=== PATIENT | male | born 1970 | race Hispanic/Latino ===

== ENCOUNTER 2017-08-14 19:54 | Emergency (ER) | payer MEDICAID, OTHER ==
[~2017-08-14 19:54] MED LIST: FURO40TA7 PO; METO25TA6 PO; POTA-79 PO; PRAV20TA4 PO; RIVA20TA PO
[2017-08-14 20:20] LABS: BASOPHILS % (AUTO) 1.2 % (0.0-5.0); EOSINOPHILS % (AUTO) 2.5 % (0.0-8.0); HEMATOCRIT 43.2 % (42-54); LYMPHOCYTES % (AUTO) 39.8 % (21.0-51.0); MEAN CORPUSCULAR HEMOGLOBIN 35.7 pg (27.0-33.0); MEAN CORPUSCULAR HGB CONC 34.3 g/dL (32.0-36.0); MEAN CORPUSCULAR VOLUME 104.2 fL (79-99); MONOCYTES % (AUTO) 9.7 % (3.0-13.0); NEUTROPHILS % (AUTO) 46.8 % (40.0-77.0); NUCLEATED RED BLOOD CELLS 0.1 % (0.0-0.19); PLATELET COUNT (AUTO) 190 K/uL (130-400); RED BLOOD CELL COUNT(AUTO) 4.15 MIL/uL (4.50-6.20); RED CELL DISTRIBUTION WIDTH 14.9 % (11.0-15.5); WHITE BLOOD COUNT (AUTO) 4.9 K/uL (4.8-10.8)
[2017-08-14] MEDS ORDERED: ACETAMINOPHEN-CODEINE ELIXIR 5 ML UDCUP ONE (20:24)
[2017-08-14 20:32] LABS: INR 1.48 (0.85-1.15); PARTIAL THROMBOPLASTIN TIME 34.3 SEC (26.3-35.5); PROTHROMBIN TIME 15.4 SEC (9.6-11.6)
[2017-08-14 20:34] LABS: CREATININE 1.4 mg/dL (0.5-1.5); POTASSIUM 3.7 mmol/L (3.5-5.1)
[2017-08-14 20:38] LABS: ALBUMIN 3.3 g/dL (3.5-5.0); BILIRUBIN,TOTAL 0.7 mg/dL (0.2-1.0); TOTAL PROTEIN, SERUM 6.7 g/dL (6.0-8.3)
[2017-08-14 20:47] LABS: APPEARANCE,URINE Clear (CLEAR); BILIRUBIN,URINE Negative (NEGATIVE); COLOR,URINE Yellow (YELLOW); GLUCOSE, URINE (UA) Negative (NEGATIVE); KETONES,URINE Negative (NEGATIVE); LEUKOCYTE ESTERASE ,URINE Negative (NEGATIVE); NITRATE,URINE Negative (NEGATIVE); OCCULT BLOOD,URINE Negative (NEGATIVE); PROTEIN,URINE Negative (NEGATIVE)
== END 2017-08-14 22:07 | disposition home or self-care (01) ==
LOC: EDH 19:54 → MERGE 19:54 → EDH 22:07
DX: S43.492A Other sprain of left shoulder joint, initial encounter (principal); I11.0 Hypertensive heart disease with heart failure; I50.9 Heart failure, unspecified; E78.5 Hyperlipidemia, unspecified; Z86.711 Personal history of pulmonary embolism; W18.39XA Other fall on same level, initial encounter; Y93.89 Activity, other specified; Y92.098 Other place in other non-institutional residence as the place of occurrence of the external cause; Y99.8 Other external cause status
CPT/HCPCS: 36415; 71045; 73030; 80053; 81003; 84484; 85025; 85610; 85730; 93005

== ENCOUNTER 2017-08-28 20:44 | Emergency (ER) | payer MEDICAID, OTHER ==
[2017-08-28 21:59] LABS: BASOPHILS % (AUTO) 0.7 % (0.0-5.0); EOSINOPHILS % (AUTO) 1.1 % (0.0-8.0); HEMATOCRIT 39.6 % (42-54); LYMPHOCYTES % (AUTO) 26.9 % (21.0-51.0); MEAN CORPUSCULAR HEMOGLOBIN 35.9 pg (27.0-33.0); MEAN CORPUSCULAR HGB CONC 34.5 g/dL (32.0-36.0); MEAN CORPUSCULAR VOLUME 103.9 fL (79-99); MONOCYTES % (AUTO) 8.1 % (3.0-13.0); NEUTROPHILS % (AUTO) 63.2 % (40.0-77.0); PLATELET COUNT (AUTO) 168 K/uL (130-400); RED BLOOD CELL COUNT(AUTO) 3.81 MIL/uL (4.50-6.20); RED CELL DISTRIBUTION WIDTH 13.5 % (11.0-15.5); WHITE BLOOD COUNT (AUTO) 7.7 K/uL (4.8-10.8)
[2017-08-28 22:10] LABS: INR 1.3 (0.85-1.15); PARTIAL THROMBOPLASTIN TIME 29.3 SEC (26.3-35.5); PROTHROMBIN TIME 13.6 SEC (9.6-11.6)
[2017-08-28 22:11] LABS: POTASSIUM 4.1 mmol/L (3.5-5.1)
[2017-08-28 22:28] LABS: ALBUMIN 3.3 g/dL (3.5-5.0); BILIRUBIN,TOTAL 0.8 mg/dL (0.2-1.0); CREATINE KINASE MB 1.2 ng/mL (0.5-3.6); TOTAL PROTEIN, SERUM 6.7 g/dL (6.0-8.3)
[2017-08-28 23:14] LABS: APPEARANCE,URINE Clear (CLEAR); BILIRUBIN,URINE Negative (NEGATIVE); COLOR,URINE Yellow (YELLOW); GLUCOSE, URINE (UA) Negative (NEGATIVE); KETONES,URINE Negative (NEGATIVE); LEUKOCYTE ESTERASE ,URINE Negative (NEGATIVE); NITRATE,URINE Negative (NEGATIVE); OCCULT BLOOD,URINE Negative (NEGATIVE); PH,URINE 6.5 (5.0-8.0); PROTEIN,URINE POS 1+ (NEGATIVE)
[2017-08-28 23:22] LABS: AMPHET/METH SCREEN,URINE NEGATIVE (NEGATIVE); BARBITURATE SCREEN, URINE NEGATIVE (NEGATIVE); BENZODIAZEPINES SCREEN,URINE NEGATIVE (NEGATIVE); CANNABINOID SCREEN,URINE NEGATIVE (NEGATIVE); COCAINE SCREEN,URINE NEGATIVE (NEGATIVE); OPIATE SCREEN,URINE NEGATIVE (NEGATIVE); PHENCYCLIDINE SCREEN,URINE NEGATIVE (NEGATIVE)
[2017-08-28 23:28] LABS: BACTERIA,URINE None Seen /HPF (None Seen); MUCUS,URINE Moderate LPF (None Seen); RBC,URINE None Seen /HPF (0-1); SQUAMOUS EPITHELIAL CELL,UR Few /LPF (0-2); WBC,URINE 0-1 /HPF (0-1)
[2017-08-28] MEDS ORDERED: TRAMADOL HCL 50 MG TABLET ONE (23:45)
== END 2017-08-29 00:38 | disposition home or self-care (01) ==
LOC: MERGE 20:44 → EDH 20:44
DX: S70.11XA Contusion of right thigh, initial encounter (principal); R79.1 Abnormal coagulation profile; R60.0 Localized edema; I11.0 Hypertensive heart disease with heart failure; I50.9 Heart failure, unspecified; E78.5 Hyperlipidemia, unspecified; Z86.711 Personal history of pulmonary embolism; W01.198A Fall on same level from slipping, tripping and stumbling with subsequent striking against other object, initial encounter; Y93.89 Activity, other specified; Y92.69 Other specified industrial and construction area as the place of occurrence of the external cause; Y99.8 Other external cause status
CPT/HCPCS: 36415; 80053; 80305; 81001; 82550; 82553; 84484; 85025; 85610; 85730; 93971

== ENCOUNTER 2017-09-03 15:45 | Inpatient (IN) | payer MEDICAID, OTHER ==
[~2017-09-03] VITALS: Ht 167.6 cm; Wt 72.1 kg
[2017-09-03] MEDS ORDERED: ONDANSETRON ODT 4 MG TAB ONE (16:30)
[2017-09-03 16:32] LABS: BASOPHILS % (AUTO) 0.7 % (0.0-5.0); EOSINOPHILS % (AUTO) 1.5 % (0.0-8.0); HEMATOCRIT 45.2 % (42-54); LYMPHOCYTES % (AUTO) 33.1 % (21.0-51.0); MEAN CORPUSCULAR VOLUME 105.8 fL (79-99); MONOCYTES % (AUTO) 6.5 % (3.0-13.0); NEUTROPHILS % (AUTO) 58.2 % (40.0-77.0); NUCLEATED RED BLOOD CELLS 0.2 % (0.0-0.19); PLATELET COUNT (AUTO) 268 K/uL (130-400); RED BLOOD CELL COUNT(AUTO) 4.27 MIL/uL (4.50-6.20); RED CELL DISTRIBUTION WIDTH 14.4 % (11.0-15.5); WHITE BLOOD COUNT (AUTO) 5.8 K/uL (4.8-10.8)
[2017-09-03 16:42] LABS: CREATININE 1.2 mg/dL (0.5-1.5); INR 1.48 (0.85-1.15); PARTIAL THROMBOPLASTIN TIME 31.3 SEC (26.3-35.5); PROTHROMBIN TIME 15.4 SEC (9.6-11.6)
[2017-09-03 16:47] LABS: ALBUMIN 3.9 g/dL (3.5-5.0); BILIRUBIN,TOTAL 0.9 mg/dL (0.2-1.0); TOTAL PROTEIN, SERUM 7.9 g/dL (6.0-8.3)
[2017-09-03 17:14] LABS: APPEARANCE,URINE Clear (CLEAR); BILIRUBIN,URINE Negative (NEGATIVE); COLOR,URINE Dark Yellow (YELLOW); GLUCOSE, URINE (UA) Negative (NEGATIVE); KETONES,URINE Negative (NEGATIVE); LEUKOCYTE ESTERASE ,URINE Negative (NEGATIVE); NITRATE,URINE Negative (NEGATIVE); OCCULT BLOOD,URINE Negative (NEGATIVE); PH,URINE 6.5 (5.0-8.0); PROTEIN,URINE POS 2+ (NEGATIVE)
[2017-09-03 17:29] LABS: RBC,URINE None Seen /HPF (0-1)
[2017-09-03 17:30] LABS: BACTERIA,URINE Rare /HPF (None Seen); WBC,URINE 0-1 /HPF (0-1)
[2017-09-04 02:00] VITALS: BP 115/61
[2017-09-04] MEDS ORDERED: ACETAMINOPHEN 325 MG TAB PO PRN ×2 (02:45)
[2017-09-04] MEDS ORDERED: ONDANSETRON HCL 4 MG/2 ML VIAL IV PRN (02:45)
[2017-09-04 04:27] LABS: HEMATOCRIT 39.2 % (42-54); MEAN CORPUSCULAR HGB CONC 34.2 g/dL (32.0-36.0); MEAN CORPUSCULAR VOLUME 105.1 fL (79-99); NUCLEATED RED BLOOD CELLS 0.1 % (0.0-0.19); PLATELET COUNT (AUTO) 214 K/uL (130-400); RED BLOOD CELL COUNT(AUTO) 3.73 MIL/uL (4.50-6.20); WHITE BLOOD COUNT (AUTO) 6.6 K/uL (4.8-10.8)
[2017-09-04 04:40] LABS: CREATININE 1.2 mg/dL (0.5-1.5); PHOSPHORUS 3.6 mg/dL (2.5-4.9); POTASSIUM 3.9 mmol/L (3.5-5.1)
[2017-09-04 04:44] LABS: AMMONIA 29 umol/L (11-32); AMYLASE 38 U/L (25-115)
[2017-09-04 05:02] LABS: B-TYPE NATRIURETIC PEPTIDE 854 pg/mL (0-100)
[2017-09-04] MEDS: FUROSEMIDE 10 MG/ML 4ML VIAL IV SCH ×2 (05:28→16:47)
[2017-09-04 07:00] VITALS: BP 117/70
[2017-09-04] MEDS: FAMOTIDINE/PF 20 MG/2 ML VIAL IV SCH ×2 (08:12→20:07)
[2017-09-04 11:00] VITALS: BP 116/70
[2017-09-04 16:00] VITALS: BP 104/80
[2017-09-04] MEDS: RIVAROXABAN 20 MG TABLET PO SCH (16:47)
[2017-09-04] MEDS ORDERED: AMIODARONE HCL 900 MG in DEXTROSE 5%-WATER 500 ML IV SCH (17:00)
[2017-09-04] MEDS ORDERED: AMIODARONE HCL 150 MG in DEXTROSE 5%-WATER 100 ML IV SCH (17:00)
[2017-09-04 19:28] VITALS: BP 109/64
[2017-09-04 23:36] VITALS: BP 98/67
[2017-09-05 04:00] VITALS: BP 106/69
[2017-09-05 04:28] LABS: CREATININE 1.3 mg/dL (0.5-1.5); POTASSIUM 3.7 mmol/L (3.5-5.1)
[2017-09-05 07:00] VITALS: BP 100/59
[2017-09-05] MEDS ORDERED: MIDAZOLAM HCL 1 MG/ML 2ML VIAL IVP ONE (07:00)
[2017-09-05] MEDS ORDERED: MEPERIDINE-PF 50 MG/ML SYG IVP ONE (07:00)
[2017-09-05] MEDS: RIVAROXABAN 20 MG TABLET PO SCH ×2 (08:00→08:27)
[2017-09-05] MEDS: FUROSEMIDE 20 MG TABLET PO SCH (08:00)
[2017-09-05] MEDS: FAMOTIDINE/PF 20 MG/2 ML VIAL IV SCH ×2 (08:01→21:02)
[2017-09-05] MEDS: CARVEDILOL 6.25 MG TABLET PO SCH ×2 (09:20→21:02)
[2017-09-05] MEDS: LISINOPRIL 5 MG TABLET PO SCH (09:20)
[2017-09-05 11:00] VITALS: BP 107/77
[2017-09-05 16:00] VITALS: BP 104/69
[2017-09-05 19:48] VITALS: BP 94/64
[2017-09-05 23:45] VITALS: BP 108/65
[2017-09-06] VITALS (10 sets, daily range): BP systolic 89–108; BP diastolic 54–80
[2017-09-06 04:39] LABS: HEMATOCRIT 40.2 % (42-54); MEAN CORPUSCULAR HGB CONC 34.5 g/dL (32.0-36.0); MEAN CORPUSCULAR VOLUME 104.5 fL (79-99); PLATELET COUNT (AUTO) 210 K/uL (130-400); RED BLOOD CELL COUNT(AUTO) 3.84 MIL/uL (4.50-6.20); RED CELL DISTRIBUTION WIDTH 14.7 % (11.0-15.5); WHITE BLOOD COUNT (AUTO) 5.6 K/uL (4.8-10.8)
[2017-09-06 04:42] LABS: CREATININE 1.3 mg/dL (0.5-1.5); POTASSIUM 3.7 mmol/L (3.5-5.1)
[2017-09-06 04:47] LABS: INR 1.21 (0.85-1.15); PARTIAL THROMBOPLASTIN TIME 27.5 SEC (26.3-35.5); PROTHROMBIN TIME 12.7 SEC (9.6-11.6)
[2017-09-06] MEDS: AMIODARONE HCL 200 MG TABLET PO SCH (08:26)
[2017-09-06] MEDS: FAMOTIDINE/PF 20 MG/2 ML VIAL IV SCH ×2 (08:26→22:13)
[2017-09-06] MEDS: FUROSEMIDE 20 MG TABLET PO SCH (08:27)
[2017-09-06] MEDS: CARVEDILOL 6.25 MG TABLET PO SCH ×2 (08:27→22:13)
[2017-09-06] MEDS: LISINOPRIL 5 MG TABLET PO SCH (08:27)
[2017-09-06] MEDS ORDERED: NITROGLYCERIN 5 MG/ML 10 ML VIAL IV ONE (15:59)
[2017-09-06] MEDS ORDERED: IOPAMIDOL-370 100 ML VIAL IV ONE ×2 (15:59→16:42)
[2017-09-06] MEDS ORDERED: LIDOCAINE HCL 2% 20ML ONE (15:59)
[2017-09-06] MEDS ORDERED: ISOVUE-370 50ML VIAL IV ONE ×2 (15:59→16:53)
[2017-09-06] MEDS ORDERED: NITROGLYCERIN 50 MG/D5% WATER 1 BOT ONE (16:43)
[2017-09-06] MEDS ORDERED: FUROSEMIDE 10 MG/ML 2ML VIAL ONE (17:06)
[2017-09-07 04:00] VITALS: BP 90/58
[2017-09-07 07:29] VITALS: BP 100/67
[2017-09-07] MEDS: FUROSEMIDE 20 MG TABLET PO SCH (09:00)
[2017-09-07] MEDS: AMIODARONE HCL 200 MG TABLET PO SCH (09:00)
[2017-09-07] MEDS: LISINOPRIL 5 MG TABLET PO SCH (09:01)
[2017-09-07] MEDS: FAMOTIDINE/PF 20 MG/2 ML VIAL IV SCH ×2 (09:01→23:00)
[2017-09-07] MEDS: CARVEDILOL 6.25 MG TABLET PO SCH ×2 (09:01→23:00)
[2017-09-07 11:09] VITALS: BP 92/49
[2017-09-07 16:00] VITALS: BP 90/55
[2017-09-07 19:46] VITALS: BP 127/76
[2017-09-07 23:29] VITALS: BP 101/66
[2017-09-08 04:06] VITALS: BP 86/56
[2017-09-08 04:24] LABS: EOSINOPHILS % (AUTO) 1.4 % (0.0-8.0); HEMATOCRIT 42.7 % (42-54); LYMPHOCYTES % (AUTO) 25.9 % (21.0-51.0); MEAN CORPUSCULAR HEMOGLOBIN 36.3 pg (27.0-33.0); MEAN CORPUSCULAR HGB CONC 34.7 g/dL (32.0-36.0); MEAN CORPUSCULAR VOLUME 104.5 fL (79-99); MONOCYTES % (AUTO) 13.1 % (3.0-13.0); NEUTROPHILS % (AUTO) 58.6 % (40.0-77.0); NUCLEATED RED BLOOD CELLS 0.1 % (0.0-0.19); PLATELET COUNT (AUTO) 212 K/uL (130-400); RED BLOOD CELL COUNT(AUTO) 4.08 MIL/uL (4.50-6.20); RED CELL DISTRIBUTION WIDTH 14.4 % (11.0-15.5); WHITE BLOOD COUNT (AUTO) 5.4 K/uL (4.8-10.8)
[2017-09-08 04:27] LABS: POTASSIUM 3.4 mmol/L (3.5-5.1)
[2017-09-08 04:44] LABS: B-TYPE NATRIURETIC PEPTIDE 573 pg/mL (0-100)
[2017-09-08 07:35] VITALS: BP 99/58
[2017-09-08] MEDS: FUROSEMIDE 20 MG TABLET PO SCH (09:12)
[2017-09-08] MEDS: AMIODARONE HCL 200 MG TABLET PO SCH (09:13)
[2017-09-08] MEDS: CARVEDILOL 6.25 MG TABLET PO SCH ×2 (09:13→21:25)
[2017-09-08] MEDS: FAMOTIDINE/PF 20 MG/2 ML VIAL IV SCH ×2 (09:13→21:25)
[2017-09-08] MEDS: LISINOPRIL 5 MG TABLET PO SCH (09:13)
[2017-09-08 11:10] VITALS: BP 103/61
[2017-09-08] MEDS ORDERED: POTASSIUM CHLORIDE 20 MEQ ERTAB PO SCH (14:00)
[2017-09-08 16:50] VITALS: BP 106/84
[2017-09-08 20:05] VITALS: BP 102/63
[2017-09-09] VITALS (7 sets, daily range): BP systolic 92–108; BP diastolic 57–72
[2017-09-09] MEDS: AMIODARONE HCL 200 MG TABLET PO SCH (09:06)
[2017-09-09] MEDS: CARVEDILOL 6.25 MG TABLET PO SCH ×2 (09:07→21:00)
[2017-09-09] MEDS: LISINOPRIL 5 MG TABLET PO SCH (09:07)
[2017-09-09] MEDS: FAMOTIDINE/PF 20 MG/2 ML VIAL IV SCH ×2 (09:07→20:45)
[2017-09-09] MEDS: FUROSEMIDE 20 MG TABLET PO SCH (09:59)
[2017-09-09] MEDS ORDERED: VANCOMYCIN 1GM+NS 250ML 250 ML IV SCH (12:15)
[2017-09-09] MEDS ORDERED: VANCOMYCIN 1GM+NS 250ML 250 ML IV ONE (13:44)
[2017-09-09] MEDS ORDERED: ENOXAPARIN SODIUM 80 MG/0.8 ML SQ SCH (19:00)
[2017-09-10] VITALS (13 sets, daily range): BP systolic 90–150; BP diastolic 65–84
[2017-09-10 04:26] LABS: HEMATOCRIT 45.7 % (42-54); MEAN CORPUSCULAR HEMOGLOBIN 35.3 pg (27.0-33.0); MEAN CORPUSCULAR HGB CONC 33.7 g/dL (32.0-36.0); MEAN CORPUSCULAR VOLUME 104.8 fL (79-99); NUCLEATED RED BLOOD CELLS 0.1 % (0.0-0.19); PLATELET COUNT (AUTO) 237 K/uL (130-400); RED BLOOD CELL COUNT(AUTO) 4.36 MIL/uL (4.50-6.20); RED CELL DISTRIBUTION WIDTH 14.5 % (11.0-15.5); WHITE BLOOD COUNT (AUTO) 4.3 K/uL (4.8-10.8)
[2017-09-10 04:44] LABS: ALBUMIN 2.9 g/dL (3.5-5.0); BILIRUBIN,TOTAL 0.7 mg/dL (0.2-1.0); POTASSIUM 4.2 mmol/L (3.5-5.1); TOTAL PROTEIN, SERUM 6.7 g/dL (6.0-8.3)
[2017-09-10] MEDS ORDERED: LIDOCAINE HCL 1% MDV 50ML VIAL ONE (07:12)
[2017-09-10] MEDS ORDERED: BUPIVACAINE/PF 0.25% 30ML VIAL IJ ONE (07:12)
[2017-09-10] MEDS ORDERED: VANCOMYCIN 1GM+NS 250ML 500 ML IV ONE (07:12)
[2017-09-10 07:22] LABS: INR 1.03 (0.85-1.15); PARTIAL THROMBOPLASTIN TIME 28.4 SEC (26.3-35.5); PROTHROMBIN TIME 10.8 SEC (9.6-11.6)
[2017-09-10] MEDS ORDERED: MEPERIDINE-PF 50 MG/ML SYG ONE (07:53)
[2017-09-10] MEDS ORDERED: MIDAZOLAM HCL 1 MG/ML 2ML VIAL ONE ×2 (07:53→08:04)
[2017-09-10] MEDS ORDERED: ISOVUE-370 50ML VIAL IV ONE (08:25)
[2017-09-10] MEDS: FUROSEMIDE 20 MG TABLET PO SCH (09:00)
[2017-09-10] MEDS: LISINOPRIL 5 MG TABLET PO SCH (09:00)
[2017-09-10] MEDS: CARVEDILOL 6.25 MG TABLET PO SCH ×2 (09:00→21:23)
[2017-09-10] MEDS: AMIODARONE HCL 200 MG TABLET PO SCH (09:00)
[2017-09-10] MEDS: FAMOTIDINE/PF 20 MG/2 ML VIAL IV SCH ×2 (09:00→21:24)
[2017-09-10] MEDS ORDERED: ACETAMINOPHEN 325 MG TAB PO PRN (09:15)
[2017-09-10] MEDS ORDERED: ACETAMINOPHEN-CODEINE 300/30MG TAB PO PRN ×2 (09:15)
[2017-09-10] MEDS: RIVAROXABAN 20 MG TABLET PO SCH (16:33)
[2017-09-11 03:15] VITALS: BP 96/62
[2017-09-11 07:00] VITALS: BP 114/59
[2017-09-11] MEDS ORDERED: LOSARTAN 50 MG TABLET PO SCH (09:00)
[2017-09-11] MEDS: FAMOTIDINE/PF 20 MG/2 ML VIAL IV SCH (09:08)
[2017-09-11] MEDS: CARVEDILOL 6.25 MG TABLET PO SCH (09:09)
[2017-09-11] MEDS: RIVAROXABAN 20 MG TABLET PO SCH (09:09)
[2017-09-11] MEDS: AMIODARONE HCL 200 MG TABLET PO SCH (09:09)
[2017-09-11] MEDS: FUROSEMIDE 20 MG TABLET PO SCH (09:09)
[2017-09-11 11:00] VITALS: BP 113/86
[2017-09-11] MEDS ORDERED: CARV6.2579 PO (13:19)
[2017-09-11] MEDS ORDERED: AMIO200T44 PO (13:19)
[2017-09-11] MEDS ORDERED: RIVA20TA PO (13:19)
[2017-09-11] MEDS ORDERED: FURO20TA6 PO (13:19)
[2017-09-11] MEDS ORDERED: ACET-2247 PO (13:19)
[2017-09-11] MEDS ORDERED: LOSA50TA2 PO (13:32)
== END 2017-09-11 15:43 | disposition home or self-care (01) | DRG 223 ==
LOC: EDH 15:45 → EDHIP 15:46 → MERGE 15:46 → 2DH 09-04 01:29
PROVIDERS: ADMIT Family Medicine; ATTEND Family Medicine
PROC: 4A023N7 Measurement of Cardiac Sampling and Pressure, Left Heart, Percutaneous Approach (ICD-10-PCS; principal; 2017-09-06)
PROC: B2111ZZ Fluoroscopy of Multiple Coronary Arteries using Low Osmolar Contrast (ICD-10-PCS; 2017-09-06)
PROC: B2151ZZ Fluoroscopy of Left Heart using Low Osmolar Contrast (ICD-10-PCS; 2017-09-06)
PROC: 02HK3KZ Insertion of Defibrillator Lead into Right Ventricle, Percutaneous Approach (ICD-10-PCS; 2017-09-10)
PROC: 0JH608Z Insertion of Defibrillator Generator into Chest Subcutaneous Tissue and Fascia, Open Approach (ICD-10-PCS; 2017-09-10)
PROC: 02H63KZ Insertion of Defibrillator Lead into Right Atrium, Percutaneous Approach (ICD-10-PCS; 2017-09-10)
DX: I11.0 Hypertensive heart disease with heart failure (principal); D68.69 Other thrombophilia; I42.0 Dilated cardiomyopathy; I48.1 Persistent atrial fibrillation; I51.3 Intracardiac thrombosis, not elsewhere classified; I48.0 Paroxysmal atrial fibrillation; R18.8 Other ascites; E78.5 Hyperlipidemia, unspecified; K29.70 Gastritis, unspecified, without bleeding; K52.9 Noninfective gastroenteritis and colitis, unspecified; I25.10 Atherosclerotic heart disease of native coronary artery without angina pectoris; I48.2 Chronic atrial fibrillation; I50.43 Acute on chronic combined systolic (congestive) and diastolic (congestive) heart failure; M19.90 Unspecified osteoarthritis, unspecified site; Z79.01 Long term (current) use of anticoagulants; Z95.810 Presence of automatic (implantable) cardiac defibrillator
CPT/HCPCS: 33249; 36415; 71045; 71046; 74176; 76700; 80048; 80053; 81001; 82140; 82150; 83690; 83735; 83880; 84100; 85025; 85027; 85610; 85730; 93005; 93306; 93458; 93925; 99152; 99153; C1721; C1760; C1894; C9113; J0282; J1644; J1650; J1940; J2175; J2250; J3370; J3490; J7060; Q9967

== ENCOUNTER 2017-10-22 08:45 | Emergency (ER) | payer SELFPAY ==
[~2017-10-22 08:45] MED LIST changes: +ACET-2247 PO; +AMIO200T44 PO; +CARV6.2579 PO; +FURO20TA6 PO; -FURO40TA7 PO; +LOSA50TA2 PO; -METO25TA6 PO; -POTA-79 PO; -PRAV20TA4 PO
[2017-10-22] MEDS ORDERED: NITROGLYCERIN 0.4 MG SL TAB SL ONE (09:21)
[2017-10-22] MEDS ORDERED: ASPIRIN 325 MG TABLET ONE (09:21)
[2017-10-22 09:25] LABS: BASOPHILS % (AUTO) 0.6 % (0.0-5.0); EOSINOPHILS % (AUTO) 1.6 % (0.0-8.0); LYMPHOCYTES % (AUTO) 24.5 % (21.0-51.0); MEAN CORPUSCULAR HEMOGLOBIN 35.1 pg (27.0-33.0); MEAN CORPUSCULAR HGB CONC 34.1 g/dL (32.0-36.0); MEAN CORPUSCULAR VOLUME 102.8 fL (79-99); NEUTROPHILS % (AUTO) 62.3 % (40.0-77.0); PLATELET COUNT (AUTO) 195 K/uL (130-400); RED BLOOD CELL COUNT(AUTO) 4.28 MIL/uL (4.50-6.20); RED CELL DISTRIBUTION WIDTH 13.7 % (11.0-15.5); WHITE BLOOD COUNT (AUTO) 6.1 K/uL (4.8-10.8)
[2017-10-22 09:38] LABS: CREATININE 1.1 mg/dL (0.5-1.5); POTASSIUM 3.8 mmol/L (3.5-5.1)
[2017-10-22 09:48] LABS: ALBUMIN 3.9 g/dL (3.5-5.0); BILIRUBIN,TOTAL 0.8 mg/dL (0.2-1.0); TOTAL PROTEIN, SERUM 8.1 g/dL (6.0-8.3)
[2017-10-22 10:05] LABS: INR 1.01 (0.85-1.15); PARTIAL THROMBOPLASTIN TIME 25.4 SEC (26.3-35.5); PROTHROMBIN TIME 10.4 SEC (9.6-11.6)
[2017-10-22] MEDS ORDERED: FUROSEMIDE 10 MG/ML 4ML VIAL ONE (10:52)
[2017-10-22] MEDS ORDERED: ONDANSETRON HCL MDV 20ML 2 MG/ML VIAL ONE (10:52)
[2017-10-22] MEDS ORDERED: IOPAMIDOL-370 100 ML VIAL IV ONE (10:52)
[2017-10-22] MEDS ORDERED: MORPHINE SULFATE 4 MG/1ML SYG ONE (10:53)
== END 2017-10-22 13:42 | disposition home or self-care (01) ==
LOC: EDH 08:45
DX: R07.89 Other chest pain (principal); I11.0 Hypertensive heart disease with heart failure; I50.9 Heart failure, unspecified; E78.5 Hyperlipidemia, unspecified; R00.1 Bradycardia, unspecified; Z86.711 Personal history of pulmonary embolism; Z95.0 Presence of cardiac pacemaker; Z72.0 Tobacco use; Z79.899 Other long term (current) drug therapy
CPT/HCPCS: 36415; 71045; 71275; 80053; 82550; 83880; 84484 ×2; 85025; 85610; 85730; 93005; 96374; 96375; 99285; J1940; J2270; Q9967

== ENCOUNTER 2017-11-16 15:30 | Emergency (ER) | payer SELFPAY ==
[2017-11-16] MEDS ORDERED: OCTYL 2-CYANOACRYLATE 1 EACH TP ONE (15:54)
[2017-11-16] MEDS ORDERED: TETANUS/DIPHTHERIA TOXOID [ADULT] 0.5 ML VIAL IM ONE (16:29)
== END 2017-11-16 16:35 | disposition home or self-care (01) ==
LOC: EDH 15:30
DX: S81.811A Laceration without foreign body, right lower leg, initial encounter (principal); I11.0 Hypertensive heart disease with heart failure; E78.5 Hyperlipidemia, unspecified; I50.9 Heart failure, unspecified; Z86.711 Personal history of pulmonary embolism; W22.8XXA Striking against or struck by other objects, initial encounter; Y93.01 Activity, walking, marching and hiking; Y92.59 Other trade areas as the place of occurrence of the external cause; Y99.8 Other external cause status
CPT/HCPCS: 12001; 90471; 90714

== ENCOUNTER 2018-04-16 19:30 | Emergency (ER) | payer OTHER ==
[2018-04-16 20:00] LABS: BASOPHILS % (AUTO) 0.3 % (0.0-5.0); HEMATOCRIT 44.6 % (42-54); LYMPHOCYTES % (AUTO) 4.5 % (21.0-51.0); MEAN CORPUSCULAR HEMOGLOBIN 36.2 pg (27.0-33.0); MEAN CORPUSCULAR HGB CONC 34.5 g/dL (32.0-36.0); MEAN CORPUSCULAR VOLUME 104.8 fL (79-99); MONOCYTES % (AUTO) 8.6 % (3.0-13.0); NEUTROPHILS % (AUTO) 86.6 % (40.0-77.0); PLATELET COUNT (AUTO) 162 K/uL (130-400); RED BLOOD CELL COUNT(AUTO) 4.26 MIL/uL (4.50-6.20); RED CELL DISTRIBUTION WIDTH 12.6 % (11.0-15.5); WHITE BLOOD COUNT (AUTO) 9.4 K/uL (4.8-10.8)
[2018-04-16 20:01] LABS: APPEARANCE,URINE CLEAR (CLEAR); BILIRUBIN,URINE NEGATIVE (NEGATIVE); COLOR,URINE YELLOW (YELLOW); GLUCOSE, URINE (UA) NEGATIVE (NEGATIVE); KETONES,URINE NEGATIVE (NEGATIVE); LEUKOCYTE ESTERASE ,URINE NEGATIVE (NEGATIVE); NITRATE,URINE NEGATIVE (NEGATIVE); OCCULT BLOOD,URINE NEGATIVE (NEGATIVE); PROTEIN,URINE NEGATIVE (NEGATIVE)
[2018-04-16] MEDS ORDERED: SODIUM CHLORIDE 0.9% 1000ML 1,000 ML IV ONE ×2 (20:24→20:34)
[2018-04-16] MEDS ORDERED: KETOROLAC TROMETHAMINE 30MG/ML ONE (20:24)
[2018-04-16] MEDS ORDERED: ONDANSETRON HCL 4 MG/2 ML VIAL ONE (20:24)
[2018-04-16 20:29] LABS: ALBUMIN 4.1 g/dL (3.5-5.0); CREATININE 1.3 mg/dL (0.5-1.5); TOTAL PROTEIN, SERUM 8.1 g/dL (6.0-8.3)
[2018-04-16] MEDS ORDERED: POTASSIUM BICARB/CIT AC 25 MEQ TABLET.EFF ONE (20:52)
[2018-04-16] MEDS ORDERED: ORPHENADRINE CITRATE 30 MG/ML ML ONE (23:08)
== END 2018-04-16 22:18 | disposition home or self-care (01) ==
LOC: EDH 19:30
DX: S39.011A Strain of muscle, fascia and tendon of abdomen, initial encounter (principal); R11.2 Nausea with vomiting, unspecified; I11.0 Hypertensive heart disease with heart failure; I50.9 Heart failure, unspecified; R00.1 Bradycardia, unspecified; Z86.711 Personal history of pulmonary embolism; Z95.0 Presence of cardiac pacemaker; X58.XXXA Exposure to other specified factors, initial encounter; Y93.89 Activity, other specified; Y92.89 Other specified places as the place of occurrence of the external cause; Y99.8 Other external cause status
CPT/HCPCS: 36415; 74176; 80053; 81003; 82150; 83690; 85025; 93005; 96361; 96372; 96374; 96375; 99285; J1885; J2360; J2405; J7030 ×2

== ENCOUNTER 2018-08-05 17:04 | Emergency (ER) | payer SELFPAY ==
[2018-08-05] MEDS ORDERED: IBUPROFEN 200 MG TAB ONE (17:23)
[2018-08-05] MEDS ORDERED: LIDOCAINE 2%-EPI 1:200,000 20 ML VIAL IJ ONE (17:23)
[2018-08-05] MEDS ORDERED: IBUPROFEN 400 MG TABLET ONE (17:23)
== END 2018-08-05 18:11 | disposition home or self-care (01) ==
LOC: EDH 17:04
DX: S61.412A Laceration without foreign body of left hand, initial encounter (principal); I11.0 Hypertensive heart disease with heart failure; I50.9 Heart failure, unspecified; E78.5 Hyperlipidemia, unspecified; Z86.711 Personal history of pulmonary embolism; W26.8XXA Contact with other sharp object(s), not elsewhere classified, initial encounter; Y93.89 Activity, other specified; Y92.096 Garden or yard of other non-institutional residence as the place of occurrence of the external cause; Y99.8 Other external cause status
CPT/HCPCS: 12001; 99283; J3490

== ENCOUNTER 2018-10-19 23:19 | Emergency (ER) | payer OTHER | END 2018-10-20 00:04 | disposition home or self-care (01) | LOC: EDH 23:19 | DX: M17.11 Unilateral primary osteoarthritis, right knee (principal); I11.0 Hypertensive heart disease with heart failure; I50.9 Heart failure, unspecified; E78.5 Hyperlipidemia, unspecified; Z95.0 Presence of cardiac pacemaker | CPT/HCPCS: 99281 ==

== ENCOUNTER 2020-03-18 19:06 | Emergency (ER) | payer OTHER ==
[2020-03-18 19:52] LABS: BASOPHILS % (AUTO) 0.2 % (0.0-5.0); EOSINOPHILS % (AUTO) 0.2 % (0.0-8.0); HEMATOCRIT 44.1 % (42-54); LYMPHOCYTES % (AUTO) 17.7 % (21.0-51.0); MEAN CORPUSCULAR HEMOGLOBIN 34.7 pg (27.0-33.0); MEAN CORPUSCULAR HGB CONC 34.5 g/dL (32.0-36.0); MEAN CORPUSCULAR VOLUME 100.7 fL (79-99); MONOCYTES % (AUTO) 5.1 % (3.0-13.0); NEUTROPHILS % (AUTO) 76.6 % (40.0-77.0); PLATELET COUNT (AUTO) 151 K/uL (130-400); RED BLOOD CELL COUNT(AUTO) 4.38 MIL/uL (4.50-6.20); RED CELL DISTRIBUTION WIDTH 12.5 % (11.0-15.5); WHITE BLOOD COUNT (AUTO) 4.8 K/uL (4.8-10.8)
[2020-03-18 20:01] LABS: RAPID GROUP A STREP NEGATIVE (NEGATIVE)
[2020-03-18 20:02] LABS: CREATININE 1.3 mg/dL (0.5-1.5); POTASSIUM 3.2 mmol/L (3.5-5.1)
[2020-03-18 20:09] LABS: APPEARANCE,URINE Clear (CLEAR); BILIRUBIN,URINE Small (NEGATIVE); COLOR,URINE Dark Yellow (YELLOW); GLUCOSE, URINE (UA) Negative (NEGATIVE); KETONES,URINE 40 mg/dL (NEGATIVE); LEUKOCYTE ESTERASE ,URINE Trace (NEGATIVE); NITRATE,URINE Negative (NEGATIVE); OCCULT BLOOD,URINE Negative (NEGATIVE); PH,URINE 5.5 (5.0-8.0); PROTEIN,URINE POS 2+ mg/dL (NEGATIVE)
[2020-03-18 20:11] LABS: INR 0.88 (0.85-1.15); PARTIAL THROMBOPLASTIN TIME 31.3 SEC (26.3-35.5); PROTHROMBIN TIME 9.6 SEC (9.6-11.6)
[2020-03-18 20:16] LABS: ALBUMIN 3.9 g/dL (3.5-5.0); BILIRUBIN,TOTAL 0.6 mg/dL (0.2-1.0); TOTAL PROTEIN, SERUM 8.4 g/dL (6.0-8.3)
[2020-03-18 20:19] LABS: B-TYPE NATRIURETIC PEPTIDE 233 pg/mL (0-100)
[2020-03-18 20:24] LABS: BACTERIA,URINE Few /HPF (None Seen); RBC,URINE None Seen /HPF (0-1); SQUAMOUS EPITHELIAL CELL,UR None Seen /HPF (0-2)
[2020-03-18] MEDS ORDERED: CEFTRIAXONE SODIUM 1 GM ONE (20:30)
[2020-03-18] MEDS ORDERED: POTASSIUM CHLORIDE 20 MEQ ERTAB PO ONE (21:37)
== END 2020-03-18 22:25 | disposition home or self-care (01) ==
LOC: EDH 19:06
DX: U07.1 COVID-19 (principal); J12.89 Other viral pneumonia; E78.5 Hyperlipidemia, unspecified; I10 Essential (primary) hypertension; I50.9 Heart failure, unspecified
CPT/HCPCS: 36415; 71045; 80053; 81001; 82550; 83605; 83880; 84145; 84484; 85025; 85610; 85730; 87040 ×2; 87426; 87804 ×2; 87880; 93005 ×2; 96374; 99285; J0696

== ENCOUNTER 2020-10-20 20:48 | Emergency (ER) | payer OTHER ==
[2020-10-20 21:44] LABS: BASOPHILS % (AUTO) 0.7 % (0.0-5.0); EOSINOPHILS % (AUTO) 1.6 % (0.0-8.0); HEMATOCRIT 42.6 % (42-54); LYMPHOCYTES % (AUTO) 32.7 % (21.0-51.0); MEAN CORPUSCULAR HGB CONC 33.3 g/dL (32.0-36.0); MEAN CORPUSCULAR VOLUME 104.9 fL (79-99); MONOCYTES % (AUTO) 10.7 % (3.0-13.0); NEUTROPHILS % (AUTO) 53.9 % (40.0-77.0); PLATELET COUNT (AUTO) 180 K/uL (130-400); RED BLOOD CELL COUNT(AUTO) 4.06 MIL/uL (4.50-6.20); RED CELL DISTRIBUTION WIDTH 14.6 % (11.0-15.5); WHITE BLOOD COUNT (AUTO) 6.9 K/uL (4.8-10.8)
[2020-10-20 21:54] LABS: CREATININE 1.3 mg/dL (0.5-1.5); POTASSIUM 3.9 mmol/L (3.5-5.1)
[2020-10-20 21:59] LABS: ALBUMIN 3.2 g/dL (3.5-5.0); BILIRUBIN,TOTAL 0.7 mg/dL (0.2-1.0); TOTAL PROTEIN, SERUM 6.1 g/dL (6.0-8.3)
[2020-10-20 22:15] LABS: APPEARANCE,URINE Clear (CLEAR); BILIRUBIN,URINE Negative (NEGATIVE); COLOR,URINE Yellow (YELLOW); GLUCOSE, URINE (UA) Negative (NEGATIVE); KETONES,URINE Negative (NEGATIVE); LEUKOCYTE ESTERASE ,URINE Negative (NEGATIVE); NITRATE,URINE Negative (NEGATIVE); OCCULT BLOOD,URINE Negative (NEGATIVE); PH,URINE 5.5 (5.0-8.0); PROTEIN,URINE POS 2+ mg/dL (NEGATIVE)
[2020-10-20] MEDS ORDERED: IBUPROFEN 600 MG TABLET ONE (22:59)
[2020-12-02] MEDS ORDERED: AMIO200T68 PO (10:08)
== END 2020-10-21 00:32 | disposition home or self-care (01) ==
LOC: EDH 20:48
DX: R10.11 Right upper quadrant pain (principal); R10.31 Right lower quadrant pain; I50.9 Heart failure, unspecified; E78.5 Hyperlipidemia, unspecified; I10 Essential (primary) hypertension
CPT/HCPCS: 36415; 76705; 80053; 81003; 83690; 85025; 93005

== ENCOUNTER 2020-12-01 17:03 | Inpatient (IN) | payer OTHER ==
[~2020-12-01] VITALS: Ht 165.1 cm; Wt 78.8 kg
[2020-12-01 18:17] LABS: BASOPHILS % (AUTO) 0.7 % (0.0-5.0); EOSINOPHILS % (AUTO) 0.9 % (0.0-8.0); HEMATOCRIT 45.6 % (42-54); LYMPHOCYTES % (AUTO) 16.4 % (21.0-51.0); MEAN CORPUSCULAR HEMOGLOBIN 35.6 pg (27.0-33.0); MEAN CORPUSCULAR VOLUME 104.6 fL (79-99); NEUTROPHILS % (AUTO) 71.6 % (40.0-77.0); PLATELET COUNT (AUTO) 180 K/uL (130-400); RED BLOOD CELL COUNT(AUTO) 4.36 MIL/uL (4.50-6.20); WHITE BLOOD COUNT (AUTO) 5.5 K/uL (4.8-10.8)
[2020-12-01 18:33] LABS: CREATININE 1.4 mg/dL (0.5-1.5); POTASSIUM 3.7 mmol/L (3.5-5.1)
[2020-12-01 18:43] LABS: ALBUMIN 3.3 g/dL (3.5-5.0); BILIRUBIN,TOTAL 1.6 mg/dL (0.2-1.0); TOTAL PROTEIN, SERUM 6.7 g/dL (6.0-8.3)
[2020-12-01 18:54] LABS: APPEARANCE,URINE Clear (CLEAR); BILIRUBIN,URINE Small (NEGATIVE); COLOR,URINE Dark Yellow (YELLOW); GLUCOSE, URINE (UA) Negative (NEGATIVE); KETONES,URINE Negative (NEGATIVE); LEUKOCYTE ESTERASE ,URINE Trace (NEGATIVE); NITRATE,URINE Negative (NEGATIVE); OCCULT BLOOD,URINE Negative (NEGATIVE); PH,URINE 5.5 (5.0-8.0); PROTEIN,URINE POS 2+ mg/dL (NEGATIVE)
[2020-12-01] MEDS ORDERED: IOHEXOL-350 75 ML VIAL IV ONE (19:00)
[2020-12-01 19:06] LABS: B-TYPE NATRIURETIC PEPTIDE 1340 pg/mL (0-100)
[2020-12-01 19:11] LABS: BACTERIA,URINE Few /HPF (None Seen); MUCUS,URINE Moderate LPF (None Seen); SQUAMOUS EPITHELIAL CELL,UR Few /HPF (0-2)
[2020-12-01] MEDS ORDERED: ZOSYN 3.375GM+NS 50ML 50 ML IV ONE (19:39)
[2020-12-01] MEDS ORDERED: ONDANSETRON HCL 4 MG/2 ML VIAL ONE (19:39)
[2020-12-01] MEDS ORDERED: MORPHINE SULFATE 4 MG/1ML SYG ONE (19:40)
[2020-12-01] MEDS ORDERED: GUAIFENESIN-DM 200/20 MG 10 ML PO PRN (20:30)
[2020-12-01] MEDS ORDERED: SODIUM CHLORIDE 0.9% 1000ML 1,000 ML IV SCH (20:30)
[2020-12-01] MEDS ORDERED: LACTULOSE 20 GM/30 ML UDCUP PO PRN (20:30)
[2020-12-01] MEDS ORDERED: ACETAMINOPHEN 325 MG TAB PO PRN (20:30)
[2020-12-01] MEDS ORDERED: NITROGLYCERIN 0.4 MG SL TAB SL PRN (20:30)
[2020-12-01] MEDS ORDERED: DIPHENHYDRAMINE HCL 25 MG CAPSULE PO PRN (20:30)
[2020-12-01] MEDS ORDERED: ALBUTEROL SULFATE 0.083% 2.5 MG/3 ML INH IH PRN (20:30)
[2020-12-01] MEDS ORDERED: HYDRALAZINE HCL 20 MG/ML VIAL IV PRN (20:30)
[2020-12-01] MEDS ORDERED: MORPHINE SULFATE 4 MG/1ML SYG IV PRN (20:30)
[2020-12-01] MEDS ORDERED: MORPHINE SULFATE 2 MG/ML 1ML SYG IV PRN (20:30)
[2020-12-01] MEDS ORDERED: FAMOTIDINE 20MG TAB 20 MG TAB PO SCH (21:00)
[2020-12-01] MEDS ORDERED: SODIUM CHLORIDE 0.9% 1000ML 1,000 ML IV ONE (23:49)
[2020-12-02] MEDS: ZOSYN 3.375GM+NS 50ML 50 ML IV SCH ×4 (05:00→20:40)
[2020-12-02] MEDS ORDERED: ZOSYN 3.375GM+NS 50ML 50 ML IV ONE ×2 (05:40→13:13)
[2020-12-02] MEDS ORDERED: SODIUM CHLORIDE 0.9% 50 ML IV ONE ×2 (05:41→13:14)
[2020-12-02] MEDS ORDERED: FAMOTIDINE/PF 20 MG/2 ML VIAL IV ONE (08:24)
[2020-12-02] MEDS ORDERED: HYDRALAZINE HCL 20 MG/ML VIAL IV PRN (08:30)
[2020-12-02] MEDS: FUROSEMIDE 10 MG/ML 4ML VIAL IV SCH ×2 (08:30→20:38)
[2020-12-02] MEDS ORDERED: FUROSEMIDE 10 MG/ML 4ML VIAL ONE (08:36)
[2020-12-02] MEDS: FAMOTIDINE/PF 20 MG/2 ML VIAL IV SCH ×3 (09:00→20:40)
[2020-12-02] MEDS ORDERED: AMIO200T6 PO (10:08)
[2020-12-02] MEDS ORDERED: RIVA20TA PO (10:08)
[2020-12-02] MEDS ORDERED: CARV6.25 PO (10:08)
[2020-12-02] MEDS ORDERED: LOSA25TA41 PO (10:08)
[2020-12-02] MEDS ORDERED: FURO20TA4 PO (10:08)
[2020-12-02] MEDS: PHARMACY COMMUNICATION MISC SCH ×2 (13:30→21:30)
[2020-12-02 16:24] LABS: CREATININE 1.3 mg/dL (0.5-1.5); MAGNESIUM 1.6 mg/dL (1.80-2.40); POTASSIUM 3.7 mmol/L (3.5-5.1)
[2020-12-02] MEDS ORDERED: POTASSIUM CHLORIDE 20MEQ/100ML 100 ML IV PRN (16:45)
[2020-12-02 16:57] VITALS: BP 114/85
[2020-12-02 20:00] VITALS: BP 126/88
[2020-12-03] VITALS (7 sets, daily range): BP systolic 100–124; BP diastolic 67–89
[2020-12-03] MEDS: ZOSYN 3.375GM+NS 50ML 50 ML IV SCH ×3 (05:42→21:58)
[2020-12-03] MEDS: FUROSEMIDE 10 MG/ML 4ML VIAL IV SCH ×2 (08:42→21:59)
[2020-12-03] MEDS: FAMOTIDINE/PF 20 MG/2 ML VIAL IV SCH ×2 (08:42→21:58)
[2020-12-03] MEDS: LOSARTAN 25 MG TABLET PO SCH (08:42)
[2020-12-03] MEDS: CARVEDILOL 6.25 MG TABLET PO SCH ×2 (08:43→21:59)
[2020-12-03] MEDS: AMIODARONE HCL 200 MG TABLET PO SCH (08:43)
[2020-12-03] MEDS: POTASSIUM CHLORIDE 20 MEQ ERTAB PO PRN ×2 (11:08→13:23)
[2020-12-03] MEDS: PHARMACY COMMUNICATION MISC SCH (21:30)
[2020-12-03] MEDS: MAGNESIUM 2GM PREMIX 50ML 50 ML IV PRN (23:35)
[2020-12-04] VITALS (13 sets, daily range): BP systolic 96–121; BP diastolic 54–82
[2020-12-04] MEDS: ZOSYN 3.375GM+NS 50ML 50 ML IV SCH ×3 (04:01→21:50)
[2020-12-04 04:47] LABS: BASOPHILS % (AUTO) 0.5 % (0.0-5.0); EOSINOPHILS % (AUTO) 1.7 % (0.0-8.0); MEAN CORPUSCULAR HEMOGLOBIN 35.8 pg (27.0-33.0); MEAN CORPUSCULAR HGB CONC 34.3 g/dL (32.0-36.0); MEAN CORPUSCULAR VOLUME 104.3 fL (79-99); MONOCYTES % (AUTO) 13.4 % (3.0-13.0); NEUTROPHILS % (AUTO) 65.1 % (40.0-77.0); PLATELET COUNT (AUTO) 184 K/uL (130-400); RED BLOOD CELL COUNT(AUTO) 4.41 MIL/uL (4.50-6.20); RED CELL DISTRIBUTION WIDTH 14.9 % (11.0-15.5); WHITE BLOOD COUNT (AUTO) 5.8 K/uL (4.8-10.8)
[2020-12-04 05:08] LABS: ALBUMIN 2.8 g/dL (3.5-5.0); BILIRUBIN,TOTAL 1.3 mg/dL (0.2-1.0); CREATININE 1.5 mg/dL (0.5-1.5); MAGNESIUM 1.8 mg/dL (1.80-2.40); POTASSIUM 3.3 mmol/L (3.5-5.1)
[2020-12-04] MEDS: PHARMACY COMMUNICATION MISC SCH ×3 (05:30→21:30)
[2020-12-04] MEDS: MAGNESIUM 2GM PREMIX 50ML 50 ML IV PRN (05:34)
[2020-12-04] MEDS: FUROSEMIDE 10 MG/ML 4ML VIAL IV SCH ×2 (08:30→21:51)
[2020-12-04] MEDS: CARVEDILOL 6.25 MG TABLET PO SCH ×2 (09:00→21:00)
[2020-12-04] MEDS: FAMOTIDINE/PF 20 MG/2 ML VIAL IV SCH ×2 (09:00→21:51)
[2020-12-04] MEDS: AMIODARONE HCL 200 MG TABLET PO SCH (09:00)
[2020-12-04] MEDS: LOSARTAN 25 MG TABLET PO SCH (09:00)
[2020-12-04 09:31] LABS: MAGNESIUM 2.4 mg/dL (1.80-2.40); POTASSIUM 3.5 mmol/L (3.5-5.1)
[2020-12-04] MEDS ORDERED: LIDOCAINE HCL 1% 20 ML VIAL ONE (09:36)
[2020-12-04] MEDS ORDERED: MIDAZOLAM HCL 1 MG/ML 2ML VIAL ONE (09:36)
[2020-12-04] MEDS ORDERED: PROPOFOL 10 MG/ML 20ML VIAL IV ONE (09:36)
[2020-12-04] MEDS: SPIRONOLACTONE 25 MG TAB PO SCH (13:04)
[2020-12-04] MEDS: POTASSIUM CHLORIDE 10% ELIXIR 20 MEQ/15 ML UDCUP PO PRN ×2 (15:58→18:15)
[2020-12-05] VITALS (7 sets, daily range): BP systolic 94–118; BP diastolic 64–89
[2020-12-05] MEDS: ZOSYN 3.375GM+NS 50ML 50 ML IV SCH ×3 (04:43→21:21)
[2020-12-05 05:10] LABS: BASOPHILS % (AUTO) 0.9 % (0.0-5.0); LYMPHOCYTES % (AUTO) 29.4 % (21.0-51.0); MEAN CORPUSCULAR HEMOGLOBIN 35.3 pg (27.0-33.0); MEAN CORPUSCULAR VOLUME 103.9 fL (79-99); MONOCYTES % (AUTO) 13.1 % (3.0-13.0); NEUTROPHILS % (AUTO) 54.3 % (40.0-77.0); PLATELET COUNT (AUTO) 180 K/uL (130-400); RED BLOOD CELL COUNT(AUTO) 4.33 MIL/uL (4.50-6.20); RED CELL DISTRIBUTION WIDTH 14.9 % (11.0-15.5); WHITE BLOOD COUNT (AUTO) 3.4 K/uL (4.8-10.8)
[2020-12-05 05:30] LABS: ALBUMIN 2.8 g/dL (3.5-5.0); CREATININE 1.3 mg/dL (0.5-1.5); POTASSIUM 3.5 mmol/L (3.5-5.1)
[2020-12-05] MEDS: PHARMACY COMMUNICATION MISC SCH ×2 (05:30→13:30)
[2020-12-05] MEDS: POTASSIUM CHLORIDE 20 MEQ ERTAB PO PRN ×2 (06:46→21:22)
[2020-12-05] MEDS: CARVEDILOL 6.25 MG TABLET PO SCH ×2 (09:00→21:00)
[2020-12-05] MEDS: LOSARTAN 25 MG TABLET PO SCH (09:00)
[2020-12-05] MEDS: SPIRONOLACTONE 25 MG TAB PO SCH (09:35)
[2020-12-05] MEDS: FAMOTIDINE/PF 20 MG/2 ML VIAL IV SCH (09:35)
[2020-12-05] MEDS: FUROSEMIDE 10 MG/ML 4ML VIAL IV SCH (09:36)
[2020-12-05] MEDS ORDERED: FUROSEMIDE 10 MG/ML 2ML VIAL IV SCH (14:00)
[2020-12-05] MEDS: SUCRALFATE 1 GM TABLET PO SCH ×2 (16:45→21:21)
[2020-12-05] MEDS: PANTOPRAZOLE SODIUM 40 MG TABLET.DR PO SCH (16:45)
[2020-12-05] MEDS: ONDANSETRON HCL 4 MG/2 ML VIAL IV PRN (16:49)
[2020-12-06 04:00] VITALS: BP 120/87
[2020-12-06] MEDS: ZOSYN 3.375GM+NS 50ML 50 ML IV SCH ×3 (05:00→20:40)
[2020-12-06 05:19] LABS: BASOPHILS % (AUTO) 1.2 % (0.0-5.0); EOSINOPHILS % (AUTO) 2.4 % (0.0-8.0); HEMATOCRIT 46.7 % (42-54); MEAN CORPUSCULAR HEMOGLOBIN 34.2 pg (27.0-33.0); MEAN CORPUSCULAR HGB CONC 33.4 g/dL (32.0-36.0); MEAN CORPUSCULAR VOLUME 102.4 fL (79-99); MONOCYTES % (AUTO) 11.3 % (3.0-13.0); NEUTROPHILS % (AUTO) 41.1 % (40.0-77.0); PLATELET COUNT (AUTO) 160 K/uL (130-400); RED BLOOD CELL COUNT(AUTO) 4.56 MIL/uL (4.50-6.20); RED CELL DISTRIBUTION WIDTH 14.8 % (11.0-15.5); WHITE BLOOD COUNT (AUTO) 3.4 K/uL (4.8-10.8)
[2020-12-06 05:46] LABS: BILIRUBIN,TOTAL 1.3 mg/dL (0.2-1.0); CREATININE 1.2 mg/dL (0.5-1.5); MAGNESIUM 1.9 mg/dL (1.80-2.40); POTASSIUM 3.7 mmol/L (3.5-5.1); TOTAL PROTEIN, SERUM 6.4 g/dL (6.0-8.3)
[2020-12-06] MEDS: PANTOPRAZOLE SODIUM 40 MG TABLET.DR PO SCH ×2 (06:33→16:36)
[2020-12-06] MEDS: POTASSIUM CHLORIDE 20 MEQ ERTAB PO PRN ×2 (06:33→12:57)
[2020-12-06] MEDS: MAGNESIUM 2GM PREMIX 50ML 50 ML IV PRN (06:34)
[2020-12-06] MEDS: SUCRALFATE 1 GM TABLET PO SCH ×4 (06:34→20:40)
[2020-12-06 08:45] VITALS: BP 110/87
[2020-12-06] MEDS: SPIRONOLACTONE 25 MG TAB PO SCH (11:20)
[2020-12-06] MEDS: FUROSEMIDE 20 MG TABLET PO SCH (11:20)
[2020-12-06] MEDS: LOSARTAN 25 MG TABLET PO SCH (11:20)
[2020-12-06 11:37] VITALS: BP 111/83
[2020-12-06] MEDS: CARVEDILOL 6.25 MG TABLET PO SCH ×2 (11:37→20:42)
[2020-12-06] MEDS: ONDANSETRON HCL 4 MG/2 ML VIAL IV PRN ×2 (11:42→17:05)
[2020-12-06 16:30] VITALS: BP 100/73
[2020-12-06] MEDS: ONDANSETRON HCL 4 MG/2 ML VIAL IV SCH ×2 (17:15→23:15)
[2020-12-06 20:00] VITALS: BP 97/74
[2020-12-06] MEDS ORDERED: ALPRAZOLAM 0.25 MG TABLET ONE (20:36)
[2020-12-06] MEDS ORDERED: ALPRAZOLAM 0.25 MG TABLET PO ONE (21:40)
[2020-12-06 23:50] VITALS: BP 92/66
[2020-12-07] MEDS: ONDANSETRON HCL 4 MG/2 ML VIAL IV SCH ×4 (03:46→22:19)
[2020-12-07 04:00] VITALS: BP 94/68
[2020-12-07] MEDS: ZOSYN 3.375GM+NS 50ML 50 ML IV SCH ×2 (04:10→16:54)
[2020-12-07 05:43] LABS: BASOPHILS % (AUTO) 1.1 % (0.0-5.0); EOSINOPHILS % (AUTO) 0.8 % (0.0-8.0); LYMPHOCYTES % (AUTO) 38.2 % (21.0-51.0); MEAN CORPUSCULAR HEMOGLOBIN 35.5 pg (27.0-33.0); MEAN CORPUSCULAR HGB CONC 34.4 g/dL (32.0-36.0); MONOCYTES % (AUTO) 9.1 % (3.0-13.0); NEUTROPHILS % (AUTO) 50.5 % (40.0-77.0); PLATELET COUNT (AUTO) 145 K/uL (130-400); RED BLOOD CELL COUNT(AUTO) 4.37 MIL/uL (4.50-6.20); RED CELL DISTRIBUTION WIDTH 14.8 % (11.0-15.5); WHITE BLOOD COUNT (AUTO) 3.5 K/uL (4.8-10.8)
[2020-12-07 06:08] LABS: ALBUMIN 2.9 g/dL (3.5-5.0); BILIRUBIN,TOTAL 1.5 mg/dL (0.2-1.0); CREATININE 1.4 mg/dL (0.5-1.5); POTASSIUM 4.3 mmol/L (3.5-5.1); TOTAL PROTEIN, SERUM 6.2 g/dL (6.0-8.3)
[2020-12-07] MEDS: PANTOPRAZOLE SODIUM 40 MG TABLET.DR PO SCH ×2 (06:51→16:54)
[2020-12-07] MEDS: SUCRALFATE 1 GM TABLET PO SCH ×4 (06:52→20:53)
[2020-12-07 09:48] VITALS: BP 106/76
[2020-12-07] MEDS: LOSARTAN 25 MG TABLET PO SCH (09:50)
[2020-12-07] MEDS: SPIRONOLACTONE 25 MG TAB PO SCH (09:50)
[2020-12-07] MEDS: FUROSEMIDE 20 MG TABLET PO SCH (09:51)
[2020-12-07] MEDS: CARVEDILOL 6.25 MG TABLET PO SCH ×2 (09:51→20:55)
[2020-12-07 11:59] VITALS: BP 99/80
[2020-12-07 17:04] VITALS: BP 93/68
[2020-12-07 20:00] VITALS: BP 90/66
[2020-12-07] MEDS ORDERED: RIVAROXABAN 20 MG TABLET PO SCH (21:00)
[2020-12-08] VITALS: BP 91/68
[2020-12-08 04:00] VITALS: BP 99/76
[2020-12-08] MEDS: ONDANSETRON HCL 4 MG/2 ML VIAL IV SCH ×2 (04:46→11:38)
[2020-12-08 06:07] LABS: BASOPHILS % (AUTO) 1.3 % (0.0-5.0); EOSINOPHILS % (AUTO) 1.8 % (0.0-8.0); HEMATOCRIT 43.4 % (42-54); LYMPHOCYTES % (AUTO) 37.4 % (21.0-51.0); MEAN CORPUSCULAR HEMOGLOBIN 34.3 pg (27.0-33.0); MEAN CORPUSCULAR HGB CONC 33.6 g/dL (32.0-36.0); MEAN CORPUSCULAR VOLUME 101.9 fL (79-99); MONOCYTES % (AUTO) 12.1 % (3.0-13.0); NEUTROPHILS % (AUTO) 46.9 % (40.0-77.0); PLATELET COUNT (AUTO) 141 K/uL (130-400); RED BLOOD CELL COUNT(AUTO) 4.26 MIL/uL (4.50-6.20); RED CELL DISTRIBUTION WIDTH 14.6 % (11.0-15.5)
[2020-12-08] MEDS: PANTOPRAZOLE SODIUM 40 MG TABLET.DR PO SCH (06:20)
[2020-12-08] MEDS: SUCRALFATE 1 GM TABLET PO SCH ×2 (06:20→11:38)
[2020-12-08 06:26] LABS: ALBUMIN 2.9 g/dL (3.5-5.0); BILIRUBIN,TOTAL 1.2 mg/dL (0.2-1.0); CREATININE 1.5 mg/dL (0.5-1.5); MAGNESIUM 1.8 mg/dL (1.80-2.40); POTASSIUM 3.8 mmol/L (3.5-5.1); TOTAL PROTEIN, SERUM 6.1 g/dL (6.0-8.3)
[2020-12-08] MEDS: SPIRONOLACTONE 25 MG TAB PO SCH (08:19)
[2020-12-08] MEDS: LOSARTAN 25 MG TABLET PO SCH (08:19)
[2020-12-08] MEDS: CARVEDILOL 6.25 MG TABLET PO SCH (08:19)
[2020-12-08] MEDS: FUROSEMIDE 20 MG TABLET PO SCH (08:20)
[2020-12-08 10:01] VITALS: BP 98/78
[2020-12-08 12:11] VITALS: BP 109/46
[2020-12-08] MEDS ORDERED: SUCR1TAB PO ×3 (12:24→14:49)
[2020-12-08] MEDS ORDERED: PANT40TA PO ×3 (12:24→14:49)
[2020-12-08] MEDS ORDERED: ONDA4TAB4 PO ×2 (12:24→12:33)
[2020-12-08] MEDS ORDERED: SPIR25TA PO ×3 (12:24→14:49)
== END 2020-12-08 15:50 | disposition home or self-care (01) | DRG 291 ==
LOC: EDH 17:03 → EDHIP 17:04 → 3DH 12-02 15:44
PROVIDERS: ADMIT Internal Medicine; ATTEND Internal Medicine
PROC: 0DB68ZX Excision of Stomach, Via Natural or Artificial Opening Endoscopic, Diagnostic (ICD-10-PCS; principal; 2020-12-04)
DX: I11.0 Hypertensive heart disease with heart failure (principal); J18.9 Pneumonia, unspecified organism; I48.19 Other persistent atrial fibrillation; I48.92 Unspecified atrial flutter; R18.8 Other ascites; I50.43 Acute on chronic combined systolic (congestive) and diastolic (congestive) heart failure; I42.8 Other cardiomyopathies; E78.5 Hyperlipidemia, unspecified; I25.10 Atherosclerotic heart disease of native coronary artery without angina pectoris; K29.00 Acute gastritis without bleeding; K82.8 Other specified diseases of gallbladder; Z79.01 Long term (current) use of anticoagulants; Z80.3 Family history of malignant neoplasm of breast; Z82.49 Family history of ischemic heart disease and other diseases of the circulatory system; Z86.711 Personal history of pulmonary embolism; Z91.19 Patient's noncompliance with other medical treatment and regimen; Z95.810 Presence of automatic (implantable) cardiac defibrillator
CPT/HCPCS: 36415; 43239; 71045; 74177; 76705; 78227; 80048; 80053; 80061; 81001; 82550; 83690; 83735; 83880; 84132; 84145; 84484; 85025; 87040; 93005; 93306; 93356; 94664; A4606; A9537; G0378; J1940; J2250; J2270; J2405; J2543; J2704; J3475; J3480; J3490; J7030; Q9967

== ENCOUNTER → 2024-04-02 | Outpatient (CLI) | payer SELFPAY ==
[~2024-04-02] MED LIST changes: +AMIO200T68 PO; +CARV6.25 PO; +FURO20TA4 PO; +IOHEXOL 350 MG/ML 100ML INFUS..BTL IV ONE; +LOSA-418 PO; +LOSA25TA41 PO; -LOSA50TA2 PO; +PANT40TA PO; +SPIR25TA PO; +SUCR1TAB PO
== END | disposition home or self-care (01) ==
LOC: RAH 09:16
PROVIDERS: ATTEND Internal Medicine Cardiovascular Disease
DX: I25.119 Atherosclerotic heart disease of native coronary artery with unspecified angina pectoris (principal); I50.20 Unspecified systolic (congestive) heart failure; R07.9 Chest pain, unspecified
CPT/HCPCS: 75574; Q9967

== ENCOUNTER 2024-04-08 21:09 | Inpatient (IN) | payer SELFPAY ==
[~2024-04-08] VITALS: Ht 165.1 cm; Wt 85.0 kg
[~2024-04-08 21:09] MED LIST changes: +CARV25TA PO; +GABA-529 PO; -IOHEXOL 350 MG/ML 100ML INFUS..BTL IV ONE; +SPIR25TA6 PO
[2024-04-08 21:43] LABS: CREATININE 1.1 mg/dL (0.5-1.3); POTASSIUM 3.9 mmol/L (3.5-5.1)
[2024-04-08 21:44] LABS: BASOPHILS # (AUTO) 0.03 K/uL (0.00-0.20); BASOPHILS % (AUTO) 0.6 % (0.0-5.0); EOSINOPHILS # (AUTO) 0.17 K/uL (0.00-0.70); EOSINOPHILS % (AUTO) 3.4 % (0.0-8.0); HEMATOCRIT 36.2 % (42-54); IMMATURE GRANULOCYTE ABSOLUTE 0.01 K/uL (0-1); LYMPHOCYTES # (AUTO) 1.9 K/uL (1.0-4.8); LYMPHOCYTES % (AUTO) 36.9 % (21.0-51.0); MEAN CORPUSCULAR HEMOGLOBIN 35.2 pg (27.0-33.0); MEAN CORPUSCULAR VOLUME 103.7 fL (79-99); MONOCYTES # (AUTO) 0.6 K/uL (0.1-1.0); NEUTROPHILS # (AUTO) 2.4 K/uL (1.8-7.7); NEUTROPHILS % (AUTO) 46.9 % (40.0-77.0); PLATELET COUNT (AUTO) 157 K/uL (130-400); RED BLOOD CELL COUNT(AUTO) 3.49 MIL/uL (4.50-6.20); RED CELL DISTRIBUTION WIDTH 12.7 % (11.0-15.5); WHITE BLOOD COUNT (AUTO) 5.1 K/uL (4.8-10.8)
[2024-04-08 21:55] LABS: B-TYPE NATRIURETIC PEPTIDE 175 pg/mL (0-100)
[2024-04-08] MEDS: PANTOPrazole 40 MG/VIAL IVP ONE (23:13)
[2024-04-08] MEDS: MAG/ALUM/SIMETH 30 ML UDCUP PO ONE (23:13)
[2024-04-08] MEDS: LIDOCAINE HCL 2% VISCOUS 15 ML UDCUP PO ONE (23:13)
[2024-04-09] MEDS ORDERED: ketOROlac 15MG/ML VIAL (15MG/ML) IV ONE
[2024-04-09] MEDS: ASPIRIN 325MG EC TAB PO STA (00:16)
[2024-04-09] MEDS: ASPIRIN 325MG EC TAB PO ONE (00:17)
[2024-04-09] MEDS ORDERED: acetaMINOPHEN 650 MG SUPPOSITORY RC PRN (00:30)
[2024-04-09] MEDS ORDERED: acetaMINOPHEN 325 MG TAB PO PRN (00:30)
[2024-04-09] MEDS ORDERED: ondanSETRON 4MG INJ IVP PRN (00:30)
[2024-04-09] MEDS ORDERED: doCUSate SODIUM 100 MG CAP PO PRN (00:30)
[2024-04-09] MEDS ORDERED: NITROGLYCERIN 0.4 MG SL TAB SL PRN ×2 (00:30→04:30)
[2024-04-09] MEDS ORDERED: TEMAZepam 15 MG CAPSULE PO PRN (00:30)
[2024-04-09] MEDS ORDERED: LACTULOSE 20 GM/30 ML UDCUP PO PRN (00:30)
[2024-04-09] MEDS ORDERED: GLUCAGON 1MG KIT 1 MG ML IM PRN (01:00)
[2024-04-09] MEDS ORDERED: PoTASSium chloRIDE 20MEQ/100ML 100 ML IV PRN (01:00)
[2024-04-09] MEDS ORDERED: DEXTROSE 50%-WATER 50 ML DISP.SYRIN IV PRN (01:00)
[2024-04-09] MEDS ORDERED: MAGNESIUM 2GM PREMIX 50ML 50 ML IV PRN (01:00)
[2024-04-09] MEDS ORDERED: PoTASSium chl 10% ELIXIR 20MEQ 20 MEQ/15 ML UDCUP PO PRN (01:00)
[2024-04-09] MEDS ORDERED: HYDR-3421 PO (01:04)
[2024-04-09] MEDS ORDERED: CETI10TA57 PO (01:04)
[2024-04-09 01:31] LABS: SARS-CoV-2, RNA, NAAT NEGATIVE SARS CoV-2 (NEGATIVE)
[2024-04-09 01:34] LABS: INFLUENZA TYPE A Negative For Type A (NEGATIVE); INFLUENZA TYPE B Negative For Type B (NEGATIVE)
[2024-04-09 02:00] LABS: APPEARANCE,URINE CLEAR (CLEAR); BILIRUBIN,URINE NEGATIVE (NEGATIVE); COLOR,URINE LIGHT-YELLOW (YELLOW); GLUCOSE, URINE (UA) NEGATIVE (NEGATIVE); KETONES,URINE NEGATIVE (NEGATIVE); LEUKOCYTE ESTERASE ,URINE NEGATIVE Leu/uL (NEGATIVE); NITRATE,URINE NEGATIVE (NEGATIVE); OCCULT BLOOD,URINE NEGATIVE (NEGATIVE); PROTEIN,URINE NEGATIVE (NEGATIVE); UROBILINOGEN,URINE 0.2 mg/dL (0.2-1.0)
[2024-04-09 02:05] LABS: AMPHET/METH SCREEN,URINE NEGATIVE (NEGATIVE); BARBITURATE SCREEN, URINE NEGATIVE (NEGATIVE); BENZODIAZEPINES SCREEN,URINE NEGATIVE (NEGATIVE); CANNABINOID SCREEN,URINE NEGATIVE (NEGATIVE); COCAINE SCREEN,URINE NEGATIVE (NEGATIVE); OPIATE SCREEN,URINE NEGATIVE (NEGATIVE); PHENCYCLIDINE SCREEN,URINE NEGATIVE (NEGATIVE)
[2024-04-09 02:15] LABS: ADD UA MICROSCOPIC NO
[2024-04-09 04:53] LABS: HEMATOCRIT 34.4 % (42-54); RED BLOOD CELL COUNT(AUTO) 3.34 MIL/uL (4.50-6.20); RED CELL DISTRIBUTION WIDTH 12.7 % (11.0-15.5); WHITE BLOOD COUNT (AUTO) 3.8 K/uL (4.8-10.8)
[2024-04-09 05:27] LABS: ALBUMIN 3.3 g/dL (3.5-5.0); BILIRUBIN,TOTAL 0.3 mg/dL (0.2-1.0); MAGNESIUM 2.1 mg/dL (1.80-2.40); POTASSIUM 3.9 mmol/L (3.5-5.1); THYROID STIMULATING HORMONE 2.13 uIU/mL (0.36-3.74); TOTAL PROTEIN, SERUM 6.8 g/dL (6.0-8.3)
[2024-04-09 06:23] LABS: HEMOGLOBIN A1C 5.5 % (4.0-6.0)
[2024-04-09] MEDS: INSULIN humuLIN R 100 UNIT/ML 3ML SQ SCH (07:30)
[2024-04-09] MEDS: PANTOPrazole 40 MG TAB DR PO SCH (09:00)
[2024-04-09] MEDS: ASPIRIN 81MG CHEW TAB PO SCH (09:00)
[2024-04-09 18:00] VITALS: BP 132/89; PULSE 49; RESP 18; TEMP 97.8
[2024-04-09 19:48] VITALS: O2SAT 98
[2024-04-09 20:00] VITALS: BP 130/75; PULSE 51; RESP 20; TEMP 98.7
[2024-04-09] MEDS: atorVAStatin 40 MG TABLET PO SCH (22:39)
[2024-04-10] VITALS (8 sets, daily range): BP systolic 109–127; BP diastolic 52–91; PULSE 52–70; RESP 16–20; TEMP 97.7–98.6; O2SAT 98–99
[2024-04-10 08:25] LABS: BASOPHILS # (AUTO) 0.02 K/uL (0.00-0.20); BASOPHILS % (AUTO) 0.4 % (0.0-5.0); EOSINOPHILS # (AUTO) 0.09 K/uL (0.00-0.70); EOSINOPHILS % (AUTO) 1.9 % (0.0-8.0); HEMATOCRIT 42.8 % (42-54); IMMATURE GRANULOCYTE ABSOLUTE 0.01 K/uL (0-1); LYMPHOCYTES # (AUTO) 1.1 K/uL (1.0-4.8); LYMPHOCYTES % (AUTO) 23.8 % (21.0-51.0); MEAN CORPUSCULAR HEMOGLOBIN 35.2 pg (27.0-33.0); MEAN CORPUSCULAR HGB CONC 33.4 g/dL (32.0-36.0); MEAN CORPUSCULAR VOLUME 105.4 fL (79-99); MONOCYTES # (AUTO) 0.3 K/uL (0.1-1.0); MONOCYTES % (AUTO) 7.2 % (3.0-13.0); NEUTROPHILS # (AUTO) 3.1 K/uL (1.8-7.7); NEUTROPHILS % (AUTO) 66.5 % (40.0-77.0); PLATELET COUNT (AUTO) 185 K/uL (130-400); RED BLOOD CELL COUNT(AUTO) 4.06 MIL/uL (4.50-6.20); RED CELL DISTRIBUTION WIDTH 12.7 % (11.0-15.5); WHITE BLOOD COUNT (AUTO) 4.7 K/uL (4.8-10.8)
[2024-04-10 08:27] LABS: INR 1.06 (0.85-1.15); PROTHROMBIN TIME 11.4 SEC (9.6-11.6)
[2024-04-10 08:29] LABS: PARTIAL THROMBOPLASTIN TIME 26.6 SEC (26.3-35.5)
[2024-04-10] MEDS: LoSARTan 25 MG TABLET PO SCH (09:22)
[2024-04-10] MEDS: SPIRONOLACTONE 25 MG TAB PO SCH (09:22)
[2024-04-10] MEDS: HEParin 25,000 UNITS/250ML D5W 250 ML IV SCH (11:20)
[2024-04-10] MEDS: HEParin 5,000 UNIT VIAL IV PRN (11:23)
[2024-04-10 16:16] LABS: INR 1.11 (0.85-1.15); PROTHROMBIN TIME 11.9 SEC (9.6-11.6)
[2024-04-10 16:47] LABS: PARTIAL THROMBOPLASTIN TIME 108.9 SEC (26.3-35.5)
[2024-04-10 22:40] LABS: INR 1.04 (0.85-1.15); PROTHROMBIN TIME 11.2 SEC (9.6-11.6)
[2024-04-10 22:41] LABS: PARTIAL THROMBOPLASTIN TIME 52.2 SEC (26.3-35.5)
[2024-04-11] VITALS (8 sets, daily range): BP systolic 101–137; BP diastolic 54–97; PULSE 43–87; RESP 16–18; TEMP 97.7–98.6; O2SAT 96–98
[2024-04-11 04:57] LABS: BASOPHILS # (AUTO) 0.03 K/uL (0.00-0.20); BASOPHILS % (AUTO) 0.5 % (0.0-5.0); EOSINOPHILS # (AUTO) 0.19 K/uL (0.00-0.70); HEMATOCRIT 39.4 % (42-54); IMMATURE GRANULOCYTE ABSOLUTE 0.01 K/uL (0-1); LYMPHOCYTES # (AUTO) 2.3 K/uL (1.0-4.8); LYMPHOCYTES % (AUTO) 36.5 % (21.0-51.0); MEAN CORPUSCULAR HEMOGLOBIN 34.9 pg (27.0-33.0); MEAN CORPUSCULAR HGB CONC 33.8 g/dL (32.0-36.0); MEAN CORPUSCULAR VOLUME 103.4 fL (79-99); MONOCYTES # (AUTO) 0.6 K/uL (0.1-1.0); NEUTROPHILS # (AUTO) 3.2 K/uL (1.8-7.7); NEUTROPHILS % (AUTO) 50.8 % (40.0-77.0); PLATELET COUNT (AUTO) 188 K/uL (130-400); RED BLOOD CELL COUNT(AUTO) 3.81 MIL/uL (4.50-6.20); RED CELL DISTRIBUTION WIDTH 12.7 % (11.0-15.5); WHITE BLOOD COUNT (AUTO) 6.3 K/uL (4.8-10.8)
[2024-04-11 05:10] LABS: ALBUMIN 3.4 g/dL (3.5-5.0); BILIRUBIN,TOTAL 0.4 mg/dL (0.2-1.0); CREATININE 1.2 mg/dL (0.5-1.3); POTASSIUM 3.9 mmol/L (3.5-5.1); TOTAL PROTEIN, SERUM 7.3 g/dL (6.0-8.3)
[2024-04-11 16:35] LABS: INR 1.02 (0.85-1.15)
[2024-04-11 16:37] LABS: PARTIAL THROMBOPLASTIN TIME 56.3 SEC (26.3-35.5)
[2024-04-12] VITALS (15 sets, daily range): BP systolic 99–145; BP diastolic 64–82; PULSE 33–90; RESP 16–20; TEMP 97.4–98.5; O2SAT 97
[2024-04-12 04:45] LABS: BASOPHILS # (AUTO) 0.05 K/uL (0.00-0.20); BASOPHILS % (AUTO) 0.8 % (0.0-5.0); EOSINOPHILS # (AUTO) 0.14 K/uL (0.00-0.70); EOSINOPHILS % (AUTO) 2.2 % (0.0-8.0); HEMATOCRIT 40.6 % (42-54); IMMATURE GRANULOCYTE ABSOLUTE 0.02 K/uL (0-1); LYMPHOCYTES # (AUTO) 2.1 K/uL (1.0-4.8); MEAN CORPUSCULAR HEMOGLOBIN 34.9 pg (27.0-33.0); MEAN CORPUSCULAR HGB CONC 33.7 g/dL (32.0-36.0); MEAN CORPUSCULAR VOLUME 103.3 fL (79-99); MONOCYTES # (AUTO) 0.6 K/uL (0.1-1.0); MONOCYTES % (AUTO) 9.7 % (3.0-13.0); NEUTROPHILS # (AUTO) 3.4 K/uL (1.8-7.7); PLATELET COUNT (AUTO) 189 K/uL (130-400); RED BLOOD CELL COUNT(AUTO) 3.93 MIL/uL (4.50-6.20); RED CELL DISTRIBUTION WIDTH 12.4 % (11.0-15.5); WHITE BLOOD COUNT (AUTO) 6.3 K/uL (4.8-10.8)
[2024-04-12 04:54] LABS: INR 1.07 (0.85-1.15); PROTHROMBIN TIME 11.5 SEC (9.6-11.6)
[2024-04-12 04:55] LABS: PARTIAL THROMBOPLASTIN TIME 63.4 SEC (26.3-35.5)
[2024-04-12 05:01] LABS: CREATININE 1.2 mg/dL (0.5-1.3); POTASSIUM 3.4 mmol/L (3.5-5.1)
[2024-04-12] MEDS: PoTASSium chloRIDE 20MEQ ER 20 MEQ ERTAB PO PRN (05:50)
[2024-04-12] MEDS ORDERED: HEParin-NS 1,000 UNIT/500 ML 1,000 ML IV ONE (09:06)
[2024-04-12] MEDS ORDERED: LIDOCAINE HCL 400MG/20ML VIAL ONE (09:06)
[2024-04-12] MEDS ORDERED: IOHEXOL 350 MG/ML 100ML INFUS..BTL IV ONE (09:06)
[2024-04-12] MEDS ORDERED: NITROGLYCERIN 50MG VIAL ONE (09:07)
[2024-04-12] MEDS ORDERED: MIDAZOLAM HCL 1 MG/ML 2ML VIAL ONE (09:26)
[2024-04-12] MEDS ORDERED: FENTanyl CITRate PF 50 MCG/1 ML 2ML VIAL ONE (09:26)
[2024-04-12] MEDS ORDERED: BIVALIRUDIN 250 MG/VIAL IV ONE (09:31)
[2024-04-12] MEDS ORDERED: HEParin-NS 1,000 UNIT/500 ML 500 ML IV ONE (10:26)
[2024-04-12] MEDS ORDERED: ASPIRIN 81MG CHEW TAB ONE (10:45)
[2024-04-12] MEDS ORDERED: cloPIDOgrel 300MG TAB ONE (10:45)
[2024-04-12] MEDS ORDERED: NITROGLYCERIN 0.4 MG SL TAB SL PRN (11:30)
[2024-04-12] MEDS: 0.9%NACL 1000ML 1,000 ML IV SCH (12:15)
[2024-04-12] MEDS: carVEDIlol 12.5 MG TABLET PO SCH (12:16)
[2024-04-12] MEDS: RIVAROXABAN 20 MG TABLET PO SCH (21:36)
[2024-04-13 04:00] VITALS: BP 114/72; PULSE 52; RESP 20; TEMP 98
[2024-04-13 04:36] LABS: BASOPHILS # (AUTO) 0.04 K/uL (0.00-0.20); BASOPHILS % (AUTO) 0.6 % (0.0-5.0); EOSINOPHILS # (AUTO) 0.14 K/uL (0.00-0.70); EOSINOPHILS % (AUTO) 2.2 % (0.0-8.0); HEMATOCRIT 38.5 % (42-54); IMMATURE GRANULOCYTE ABSOLUTE 0.01 K/uL (0-1); LYMPHOCYTES # (AUTO) 1.5 K/uL (1.0-4.8); LYMPHOCYTES % (AUTO) 23.3 % (21.0-51.0); MEAN CORPUSCULAR HEMOGLOBIN 34.7 pg (27.0-33.0); MEAN CORPUSCULAR HGB CONC 33.8 g/dL (32.0-36.0); MEAN CORPUSCULAR VOLUME 102.7 fL (79-99); MONOCYTES # (AUTO) 0.6 K/uL (0.1-1.0); MONOCYTES % (AUTO) 9.6 % (3.0-13.0); NEUTROPHILS # (AUTO) 4.1 K/uL (1.8-7.7); NEUTROPHILS % (AUTO) 64.1 % (40.0-77.0); PLATELET COUNT (AUTO) 166 K/uL (130-400); RED BLOOD CELL COUNT(AUTO) 3.75 MIL/uL (4.50-6.20); RED CELL DISTRIBUTION WIDTH 12.3 % (11.0-15.5); WHITE BLOOD COUNT (AUTO) 6.4 K/uL (4.8-10.8)
[2024-04-13 04:49] LABS: CREATININE 1.2 mg/dL (0.5-1.3); POTASSIUM 4.1 mmol/L (3.5-5.1)
[2024-04-13 07:00] VITALS: BP 104/72; PULSE 68; RESP 20; TEMP 98.1
[2024-04-13] MEDS ORDERED: CARV12.511 PO (09:32)
[2024-04-13] MEDS ORDERED: doCUSate SODIUM 100 MG CAP PO (09:32)
[2024-04-13 10:20] VITALS: O2SAT 98
[2024-04-13 10:21] VITALS: BP 104/72
[2024-04-13] MEDS: cloPIDOgrel 75MG TAB PO SCH (10:22)
[2024-04-13] MEDS ORDERED: CLOP-31 PO (14:54)
== END 2024-04-13 12:15 | disposition home or self-care (01) | DRG 323 ==
LOC: EDH 21:09 → EDHIP 04-09 00:19 → MERGE 04-09 00:19 → EDHIP 04-09 02:29 → 3AH 04-09 15:26 → UNDODISIN 04-09 17:55 → 2AH 04-12 10:28
PROVIDERS: ADMIT Internal Medicine; ATTEND Internal Medicine
PROC: 4A023N7 Measurement of Cardiac Sampling and Pressure, Left Heart, Percutaneous Approach (ICD-10-PCS; principal; 2024-04-12)
PROC: 027136Z Dilation of Coronary Artery, Two Arteries with Three Drug-eluting Intraluminal Devices, Percutaneous Approach (ICD-10-PCS; 2024-04-12)
PROC: 02F03ZZ Fragmentation in Coronary Artery, One Artery, Percutaneous Approach (ICD-10-PCS; 2024-04-12)
PROC: B2111ZZ Fluoroscopy of Multiple Coronary Arteries using Low Osmolar Contrast (ICD-10-PCS; 2024-04-12)
DX: I13.0 Hypertensive heart and chronic kidney disease with heart failure and stage 1 through stage 4 chronic kidney disease, or unspecified chronic kidney disease (principal); I50.23 Acute on chronic systolic (congestive) heart failure; E87.1 Hypo-osmolality and hyponatremia; I48.20 Chronic atrial fibrillation, unspecified; N17.9 Acute kidney failure, unspecified; Z20.822 Contact with and (suspected) exposure to COVID-19; N18.9 Chronic kidney disease, unspecified; R73.9 Hyperglycemia, unspecified; D63.8 Anemia in other chronic diseases classified elsewhere; I42.0 Dilated cardiomyopathy; K59.00 Constipation, unspecified; I25.10 Atherosclerotic heart disease of native coronary artery without angina pectoris; Z79.01 Long term (current) use of anticoagulants; Z79.82 Long term (current) use of aspirin; Z79.899 Other long term (current) drug therapy; Z95.810 Presence of automatic (implantable) cardiac defibrillator; Z82.49 Family history of ischemic heart disease and other diseases of the circulatory system
CPT/HCPCS: 36415; 71045; 80048; 80053; 80305; 81003; 82550; 82948; 83036; 83735; 83880; 84100; 84443; 84484; 85025; 85027; 85610; 85730; 87635; 87804; 92972; 93005; 93306; 93454; 96374; 99156; 99157; C1760; C1761; C1887; C1894; C9600; G0378; J0583; J1644; J2250; J2470; J3010; J3490; Q9967; C1769; C1874; Q9965

== ENCOUNTER 2024-07-12 21:13 | Emergency (ER) | payer SELFPAY ==
[~2024-07-12] VITALS: Ht 167.6 cm; Wt 84.1 kg
[~2024-07-12 21:13] MED LIST changes: +CARV12.511 PO; -CARV25TA PO; +CETI10TA57 PO; +CLOP-31 PO; +HYDR-3421 PO; +doCUSate SODIUM 100 MG CAP PO
[2024-07-12 21:15] VITALS: BP 126/91; PULSE 78; RESP 16; TEMP 97.3
[2024-07-12 22:29] LABS: BASOPHILS # (AUTO) 0.04 K/uL (0.00-0.20); BASOPHILS % (AUTO) 0.7 % (0.0-5.0); EOSINOPHILS # (AUTO) 0.14 K/uL (0.00-0.70); EOSINOPHILS % (AUTO) 2.3 % (0.0-8.0); HEMATOCRIT 33.4 % (42-54); IMMATURE GRANULOCYTE ABSOLUTE 0.01 K/uL (0-1); LYMPHOCYTES # (AUTO) 1.8 K/uL (1.0-4.8); LYMPHOCYTES % (AUTO) 30.1 % (21.0-51.0); MEAN CORPUSCULAR HEMOGLOBIN 32.7 pg (27.0-33.0); MEAN CORPUSCULAR HGB CONC 32.3 g/dL (32.0-36.0); MEAN CORPUSCULAR VOLUME 101.2 fL (79-99); MONOCYTES # (AUTO) 0.8 K/uL (0.1-1.0); MONOCYTES % (AUTO) 13.4 % (3.0-13.0); NEUTROPHILS # (AUTO) 3.2 K/uL (1.8-7.7); NEUTROPHILS % (AUTO) 53.3 % (40.0-77.0); PLATELET COUNT (AUTO) 192 K/uL (130-400); RED CELL DISTRIBUTION WIDTH 13.2 % (11.0-15.5)
[2024-07-12] MEDS: acetaMINOPHEN 500 MG TABLET PO ONE (22:37)
[2024-07-12 22:47] LABS: CREATININE 1.2 mg/dL (0.5-1.3); POTASSIUM 4.1 mmol/L (3.5-5.1)
[2024-07-12] MEDS: cefTRIAXone 1G VIAL IM ONE (23:54)
[2024-07-13] MEDS ORDERED: CLIN-141 PO (00:39)
--- NOTE | 2024-07-13 00:40 | ERN ---
ED Note History of Present Illness Stated Complaint: BACK PAIN, ABSCESS Chief Complaint: Multiple Complaints Time Seen by MD: 21:44 Time Seen by Midlevel: 21:44 Dictation: Patient is a 54-year-old male with a history of CAD, cholecystectomy, permanent pacemaker who presents to the emergency department with a wound to his rectum onset two weeks ago. Patient reports that he has problems with this in the past but it has a has gone away on its own. Patient reports pain radiates into his upper buttocks with palpation. Denies any fevers. Allergies: Coded Allergies: No Known Allergies (Unverified Allergy, Unknown, 09/25/17) morphine (Unverified Allergy, Unknown, DIZZINESS, 04/13/24) WORSING MY STATE OF HEALTH, AFTER TAKING IT FEELS WORSE THAN MY USUAL STATE Home Meds Active Scripts Clindamycin HCl (Clindamycin HCl) 300 Mg Capsule, 1 CAP PO QID for 7 Days, #28 CAP 0 Refills Prov:MICHELLE GARCIA 07/13/24 Clopidogrel Bisulfate (Plavix) 75 Mg Tablet, 75 MG PO DAILY, #30 TAB 0 Refills Prov:WILL ANDRE AGPCNP 04/13/24 Carvedilol (Carvedilol) 12.5 Mg Tablet, 12.5 MG PO BID, #60 TAB 0 Refills Prov:WILL ANDRESORAYA 04/13/24 [doCUSate SODIUM 100 MG CAP] 100 MG CAPSULE No Conflict Check, 100 MG PO BID PRN for c, #60 0 Refills Prov:WILL ANDREPCSORAYA 04/13/24 Gabapentin (Gabapentin) 100 Mg Capsule, 100 MG PO DAILY PRN for daily for 5 Days, #5 CAP Prov:HECTOR MELTON MD 02/08/24 Sucralfate (Carafate) 1 Gm Tablet, 1 GM PO ACHS, #60 TAB 0 Refills Prov:JOHN VARGAS MD 12/08/20 Spironolactone (Aldactone) 25 Mg Tablet, 25 MG PO DAILY, #30 TAB 0 Refills Prov:JOHN VARGAS MD 12/08/20 Pantoprazole Sodium (Protonix) 40 Mg Tablet.dr, 40 MG PO BIDAC for 30 Days, #60 TAB 0 Refills Prov:JOHN VARGAS MD 5/27/21 Losartan Potassium (Cozaar) 50 Mg Tablet, 25 MG PO DAILY for 30 Days, #30 TAB Prov:VIRGINIA REILLY MD 09/11/17 Rivaroxaban (Xarelto) 20 Mg Tablet, 20 MG PO DAILY for 30 Days, #30 TAB Prov:VIRGINIA REILLY MD 09/11/17 Furosemide (Lasix 20Mg Tab) 20 Mg Tablet, 60 MG PO DAILY for 30 Days, #30 TAB Prov:VIRGINIA REILLY MD 09/11/17 Carvedilol (Coreg) 6.25 Mg Tablet, 6.25 MG PO BID for 30 Days, #60 TAB Prov:VIRGINIA REILLY MD 09/11/17 Amiodarone HCl (Pacerone) 200 Mg Tablet, 200 MG PO DAILY for 30 Days, #30 TAB Prov:VIRGINIA REILLY MD 09/11/17 Acetaminophen (Tylenol) 325 Mg Tablet, 650 MG PO Q6H PRN for TEMPERATURE GREATER THAN 101.5 for 5 Days, #15 TAB Prov:VIRGINIA REILLY MD 09/11/17 Reported Medications Hydroxyzine HCl (Hydroxyzine HCl) 25 Mg Tablet, 25 MG PO BID PRN for ANXIETY/AGITATION, TAB 04/09/24 Cetirizine HCl (Cetirizine HCl) 10 Mg Tablet, 10 MG PO DAILY, TAB 04/09/24 Spironolactone (Spironolactone) 25 Mg Tablet, 25 MG PO DAILY, TAB 01/29/24 Losartan Potassium (Losartan Potassium) 25 Mg Tablet, 25 MG PO DAILY, TAB 01/29/24 Furosemide (Furosemide) 20 Mg Tablet, 20 MG PO DAILY, TAB 01/29/24 Rivaroxaban (Xarelto) 20 Mg Tablet, 20 MG PO HS, TAB 01/29/24 Rivaroxaban (Xarelto) 20 Mg Tablet, 20 MG PO DAILY, TAB 12/02/20 Amiodarone HCl (Amiodarone HCl) 200 Mg Tablet, 200 MG PO DAILY, TAB 12/02/20 Carvedilol (Carvedilol) 6.25 Mg Tablet, 6.25 MG PO BID, TAB 12/02/20 Losartan Potassium (Losartan Potassium) 25 Mg Tablet, 25 MG PO DAILY, TAB 12/02/20 Furosemide (Furosemide) 20 Mg Tablet, 20 MG PO DAILY, TAB 12/02/20 Past Medical History Past Medical History: A-Fib, Heart Disease Additional Past Medical Hx: BRADYCARDIA Surgical History: Pacer/AICD Surgical History Other: BIOTRONIK Family History: CAD Social History: Negative, Lives with family RN Note Reviewed/Agreed w/PFSH: Yes Review of System Dictation Constitutional: Negative for fever,chills, and weight loss Eyes: Negative for injury, pain,redness, and discharge ENT: Negative for injury,pain or swelling Cardiovascular: Negative for chest pain, palpitations, and edema Respiratory: Negative for shortness of breath, cough, and wheezing, Abdomen/GI: Negative for abdominal pain, nausea, vomiting, diarrhea, and constipation Back: Negative for injury and pain : Negative for injury, bleeding and discharge MS/Extremity: Negative for injury and deformity Skin: Negative for rash, and discoloration positive for abscess Neuro: Negative for headache, weakness, numbness, tingling, and seizure Psych: Negative for suicide ideation, homicidal ideation, and hallucinations Initial Vital Sign VS Vital Signs Date Time Temp Pulse Resp B/P (MAP) Pulse Ox O2 Delivery O2 Flow Rate FiO2 07/12/24 21:15 97.3 78 16 126/91 98 Room Air Physical Exam Dictation Vital Signs reviewed General Appearance: Alert, oriented x 3, no acute distress, well developed, nourished. Head and Face: non-traumatic. Eyes: PERRL, pink conjunctivas, eyelid no trauma, anterior chamber with arcus senilis. Ears: Pinnas intact and no signs of trauma or erythema ear canals clear and no discharge TM no erythema Nose: No discharge, no bleeding. Oropharynx: Mouth normal, tongue pink. pharynx clear,no erythema, tonsils no exudates, no abscesses noted, mucous membrane moist Neck: Supple, non-tender, no thyromegaly, no masses, no JVD, no bruits Breast:Deferred Chest:No tenderness, no crepitus, no paradoxical movement, no retractions Lungs:Clear, well-ventilated, symmetric, no rales, no wheezing, no rhonchi, no stridor, good breath sounds bilaterally Heart: Regular rate, regular rhythm, no murmur, no gallops Vascular: no peripheral edema, Abdomen: Soft, positive bowel sounds, nondistended, no guarding, nontender, no rebound, no masses no hepatomegaly, no splenomegaly, no Bliss's sign, no hernias. Rectal: Deferred Genital: Deferred Neurological: Normal speech, motor function intact, sensory function intact Musculoskeletal: Neck nontender, full range of motion, back nontender, full range of motion, Extremities: nontender, full range of motion Skin: Color pink, dry, no turgor, no rash, no lacerations, no abrasions, no contusions. Small less than1 cm in diameter boil, pimple like, surrounding area soft with no redness, no drainage Lymphatic: Deferred Results (Laboratory/Radiology) Laboratory/Radiology Laboratory Tests Test 07/12/24 22:12 White Blood Count 6.0 K/uL (4.8-10.8) Red Blood Count 3.30 MIL/uL (4.50-6.20) L Hemoglobin 10.8 g/dL (14.0-18.0) L Hematocrit 33.4 % (42-54) L Mean Corpuscular Volume 101.2 fL (79-99) H Mean Corpuscular Hemoglobin 32.7 pg (27.0-33.0) Mean Corpuscular Hemoglobin Concent 32.3 g/dL (32.0-36.0) Red Cell Distribution Width 13.2 % (11.0-15.5) Platelet Count 192 K/uL (130-400) Mean Platelet Volume 10.0 fL (7.5-10.5) Immature Granulocyte % (Auto) 0.2 % (0-1) Neutrophils (%) (Auto) 53.3 % (40.0-77.0) Lymphocytes (%) (Auto) 30.1 % (21.0-51.0) Monocytes (%) (Auto) 13.4 % (3.0-13.0) H Eosinophils (%) (Auto) 2.3 % (0.0-8.0) Basophils (%) (Auto) 0.7 % (0.0-5.0) Neutrophils # (Auto) 3.2 K/uL (1.8-7.7) Lymphocytes # (Auto) 1.8 K/uL (1.0-4.8) Monocytes # (Auto) 0.8 K/uL (0.1-1.0) Eosinophils # (Auto) 0.14 K/uL (0.00-0.70) Basophils # (Auto) 0.04 K/uL (0.00-0.20) Absolute Immature Granulocyte (auto 0.01 K/uL (0-1) Nucleated Red Blood Cells 0.0 % (0.0-0.19) Sodium Level 140 mmol/L (136-145) Potassium Level 4.1 mmol/L (3.5-5.1) Chloride Level 104 mmol/L (101-111) Carbon Dioxide Level 29 mmol/L (21-32) Blood Urea Nitrogen 19 mg/dL (7-18) H Creatinine 1.2 mg/dL (0.5-1.3) Glomerular Filtration Rate Calc 72 mL/min (>90) Random Glucose 107 mg/dL (70-105) H Total Calcium 8.7 mg/dL (8.5-10.1) Labs Reviewed?: Yes ED Course ED Course Orders Procedure Category Date Status Time Cbc With Differential LAB 07/12/24 Complete 22:01 Basic Metabolic Panel LAB 07/12/24 Complete 22:01 Acetaminophen 500mg PHA 07/12/24 Complete Tab (Tylenol 500mg T 22:30 Ceftriaxone 1g Vial PHA 07/13/24 Complete (Rocephine 1g Inj) 00:00 Current Medications Medications (Trade) Dose Ordered Sig/Teodoro Route PRN Reason Start Time Stop Time Status Last Admin Dose Admin Acetaminophen (TYLenol 500MG TAB) 1,000 mg ONCE ONCE PO 07/12/24 22:30 07/12/24 22:31 DC 07/12/24 22:37 Ceftriaxone Sodium (ROCEphine 1G INJ) 1 gm ONCE ONCE IM 07/13/24 00:00 07/13/24 00:01 DC 07/12/24 23:54 Vital Signs Date Time Temp Pulse Resp B/P (MAP) Pulse Ox O2 Delivery O2 Flow Rate FiO2 07/12/24 21:15 97.3 78 16 126/91 98 Room Air Medical Decision Making MDM Patient is a 54-year-old male with a history of CAD, cholecystectomy, permanent pacemaker who presents to the emergency department with a wound to his rectum onset two weeks ago. Patient reports that he has problems with this in the past but it has a has gone away on its own. Patient reports pain radiates into his upper buttocks with palpation. Denies any fevers. Patient with a small less than 1 cm boil, near rectum,. No drainage, slight erythema. No surrounding cellulitis. CBC showed no leukocytosis, mild macrocytic anemia, chemistry showed no electrolyte imbalance. Patient nontoxic appearance, in no acute distress. Will be discharged on antibiotics and instructed to follow up with PCP which pacing has an appointment tomorrow. Patient instructed to return if symptoms worsen, develops fever or wound gets bigger. Differential diagnosis: Abscess, sepsis, electrolyte imbalance Need for hospitalization: Patient does not meet criteria for hospitalization. There are no social concerns with this patient. DX & DISP Disposition: Discharge Departure Impression: Primary Impression: Perianal abscess Condition: Stable Scripts Clindamycin HCl (Clindamycin HCl) 300 Mg Capsule 1 CAP PO QID for 7 Days, #28 CAP 0 Refills Prov: MICHELLE GARCIA 07/13/24 Additional Instructions: Please follow up with your primary provider in 1-2 days. Please return to ER if symptoms worsen. You develop fever, wound increases in size, develop weakness FOLLOW-UP WITH PRIMARY CARE PROVIDER IN 1 TO 2 DAYS. TAKE MEDICATIONS DIRECTED HERE IN THE EMERGENCY ROOM. OKAY TO CONTINUE HOME MEDICATIONS UNLESS OTHERWISE DISCUSSED DURING YOUR VISIT IN THE EMERGENCY ROOM TODAY. RETURN TO YOUR NEAREST EMERGENCY ROOM IF SYMPTOMS WORSEN OR IF THERE IS NO IMPROVEMENT. CALL 911 IF YOU NEED IMMEDIATE ASSISTANCE. TAKE TYLENOL OR MOTRIN [id number] NEEDED AND IF NO CONTRAINDICATIONS ARE PRESENT. INCREASE ORAL HYDRATION. A WOUND CULTURE OR URINE CULTURE WAS ORDERED HERE IN THE EMERGENCY ROOM DEPARTMENT PLEASE FOLLOW-UP WITH PRIMARY CARE PROVIDER AND ADVISE THEM TO GET REPEAT PORTS FROM OUR FACILITY. IF YOU HAD ANY ATIF WRAP/SPLINTS THAT WERE APPLIED HERE, PLEASE DO NOT REMOVE THEM UNTIL YOU SEE YOUR PRIMARY CARE OR SPECIALTY. Referrals: SAM ZHONG MD (PCP) Time of Disposition: 00:33 I have reviewed the case, and I agree with, Diagnosis and Plan MICHELLE GARCIA Jul 13, 2024 00:39
== END 2024-07-13 00:47 | disposition home or self-care (01) ==
LOC: EDH 21:13
DX: K61.0 Anal abscess (principal); I48.91 Unspecified atrial fibrillation; Z79.01 Long term (current) use of anticoagulants; Z79.02 Long term (current) use of antithrombotics/antiplatelets; Z79.899 Other long term (current) drug therapy; Z88.5 Allergy status to narcotic agent; Z95.810 Presence of automatic (implantable) cardiac defibrillator
CPT/HCPCS: 99283; 80048; 85025; 36415; 96372; J0696

== ENCOUNTER 2024-08-03 11:22 | Emergency (ER) | payer SELFPAY ==
[~2024-08-03] VITALS: Ht 165.1 cm; Wt 81.6 kg
[~2024-08-03 11:22] MED LIST changes: +CLIN-141 PO
--- NOTE | 2024-08-03 11:38 | ERN ---
ED Note History of Present Illness Stated Complaint: DIZZYNESS,FAINTED Chief Complaint: Syncope Time Seen by MD: 11:23 Time Seen by Midlevel: 11:28 Dictation: 54-year-old male with a history of hypertension, AFib, diabetes, and a pacemaker coming in for a syncopal episode. Patient states he was in his truck getting to work when he began to feel lightheaded, decided to get off and get a bottle of water from the ice chest when she bent over he had a syncopal episode. Patient denies having any chest pain or chest discomfort, denies being recently ill. Allergies: Coded Allergies: No Known Allergies (Unverified Allergy, Unknown, 09/25/17) morphine (Unverified Allergy, Unknown, DIZZINESS, 04/13/24) WORSING MY STATE OF HEALTH, AFTER TAKING IT FEELS WORSE THAN MY USUAL STATE Home Meds Active Scripts Clindamycin HCl (Clindamycin HCl) 300 Mg Capsule, 1 CAP PO QID for 7 Days, #28 CAP 0 Refills Prov:MICHELLE GARCIA 07/13/24 Clopidogrel Bisulfate (Plavix) 75 Mg Tablet, 75 MG PO DAILY, #30 TAB 0 Refills Prov:WILL ANDREPCNP 04/13/24 Carvedilol (Carvedilol) 12.5 Mg Tablet, 12.5 MG PO BID, #60 TAB 0 Refills Prov:WILL ANDRESORAYA 04/13/24 [doCUSate SODIUM 100 MG CAP] 100 MG CAPSULE No Conflict Check, 100 MG PO BID PRN for c, #60 0 Refills Prov:WILL ANDRE 04/13/24 Gabapentin (Gabapentin) 100 Mg Capsule, 100 MG PO DAILY PRN for daily for 5 Days, #5 CAP Prov:HECTOR MELTON MD 02/08/24 Sucralfate (Carafate) 1 Gm Tablet, 1 GM PO ACHS, #60 TAB 0 Refills Prov:JOHN VARGAS MD 12/08/20 Spironolactone (Aldactone) 25 Mg Tablet, 25 MG PO DAILY, #30 TAB 0 Refills Prov:JOHN VARGAS MD 12/08/20 Pantoprazole Sodium (Protonix) 40 Mg Tablet.dr, 40 MG PO BIDAC for 30 Days, #60 TAB 0 Refills Prov:JOHN VARGAS MD 12/08/20 Losartan Potassium (Cozaar) 50 Mg Tablet, 25 MG PO DAILY for 30 Days, #30 TAB Prov:VIRGINIA REILLY MD 09/11/17 Rivaroxaban (Xarelto) 20 Mg Tablet, 20 MG PO DAILY for 30 Days, #30 TAB Prov:VIRGINIA REILLY MD 09/11/17 Furosemide (Lasix 20Mg Tab) 20 Mg Tablet, 60 MG PO DAILY for 30 Days, #30 TAB Prov:VIRGINIA REILLY MD 09/11/17 Carvedilol (Coreg) 6.25 Mg Tablet, 6.25 MG PO BID for 30 Days, #60 TAB Prov:VIRGINIA REILLY MD 09/11/17 Amiodarone HCl (Pacerone) 200 Mg Tablet, 200 MG PO DAILY for 30 Days, #30 TAB Prov:VIRGINIA REILLY MD 09/11/17 Acetaminophen (Tylenol) 325 Mg Tablet, 650 MG PO Q6H PRN for TEMPERATURE GREATER THAN 101.5 for 5 Days, #15 TAB Prov:VIRGINIA REILLY MD 09/11/17 Reported Medications Hydroxyzine HCl (Hydroxyzine HCl) 25 Mg Tablet, 25 MG PO BID PRN for ANXIETY/AGITATION, TAB 04/09/24 Cetirizine HCl (Cetirizine HCl) 10 Mg Tablet, 10 MG PO DAILY, TAB 04/09/24 Spironolactone (Spironolactone) 25 Mg Tablet, 25 MG PO DAILY, TAB 01/29/24 Losartan Potassium (Losartan Potassium) 25 Mg Tablet, 25 MG PO DAILY, TAB 01/29/24 Furosemide (Furosemide) 20 Mg Tablet, 20 MG PO DAILY, TAB 01/29/24 Rivaroxaban (Xarelto) 20 Mg Tablet, 20 MG PO HS, TAB 01/29/24 Rivaroxaban (Xarelto) 20 Mg Tablet, 20 MG PO DAILY, TAB 12/02/20 Amiodarone HCl (Amiodarone HCl) 200 Mg Tablet, 200 MG PO DAILY, TAB 12/02/20 Carvedilol (Carvedilol) 6.25 Mg Tablet, 6.25 MG PO BID, TAB 12/02/20 Losartan Potassium (Losartan Potassium) 25 Mg Tablet, 25 MG PO DAILY, TAB 12/02/20 Furosemide (Furosemide) 20 Mg Tablet, 20 MG PO DAILY, TAB 12/02/20 Past Medical History Past Medical History: A-Fib, Heart Disease Additional Past Medical Hx: BRADYCARDIA Surgical History: Pacer/AICD Surgical History Other: BIOTRONIK Family History: CAD Social History: Negative, Lives with family Review of System Dictation Constitutional: Negative for fever,chills, and weight loss Eyes: Negative for injury, pain,redness, and discharge ENT: Negative for injury,pain or swelling Cardiovascular: Negative for chest pain, palpitations, and edema Respiratory: Negative for shortness of breath, cough, and wheezing, Abdomen/GI: Negative for abdominal pain, nausea, vomiting, diarrhea, and constipation Back: Negative for injury and pain : Negative for injury, bleeding and discharge MS/Extremity: Negative for injury and deformity Skin: Negative for rash, and discoloration Neuro: Negative for headache, weakness, numbness, tingling, and seizure Psych: Negative for suicide ideation, homicidal ideation, and hallucinations Review of Systems: was completed Initial Vital Sign VS Vital Signs Date Time Temp Pulse Resp B/P (MAP) Pulse Ox O2 Delivery O2 Flow Rate FiO2 08/03/24 11:24 97.9 52 16 102/63 99 Room Air 0 08/03/24 12:33 21 Physical Exam Dictation General: awake, alert, NAD Head/Face: Normocephalic, atraumatic Eyes: PERRL, EOMI, vision at baseline ENT: oral cavity clear, TMs clear, no signs of infection Neck: Trachea midline, supple, no nuchal rigidity Cardiovascular: RRR, normal S1/S2, No MRGs, no JVD Respiratory: CTAB, no respiratory distress, No rales or wheezes Abdomen: Soft, non-tender, non-distended, normal bowel sounds, no guarding or rebound. Skin: Warm, dry, normal turgor, no rash MS/Extremity: Pulses equal, no cyanosis, neurovascular intact, FROM Neuro: COAx4, GCS 15, strength 5/5, CN 2-12 intact, normal cerebellar exam, normal gait, Psych: Normal behavior, mood, and affect normal Results (Laboratory/Radiology) Laboratory/Radiology Laboratory Tests Test 1/20/25 11:46 08/03/24 12:30 08/03/24 13:23 White Blood Count 6.4 K/uL (4.8-10.8) Red Blood Count 3.46 MIL/uL (4.50-6.20) L Hemoglobin 10.9 g/dL (14.0-18.0) L Hematocrit 33.8 % (42-54) L Mean Corpuscular Volume 97.7 fL (79-99) Mean Corpuscular Hemoglobin 31.5 pg (27.0-33.0) Mean Corpuscular Hemoglobin Concent 32.2 g/dL (32.0-36.0) Red Cell Distribution Width 13.6 % (11.0-15.5) Platelet Count 172 K/uL (130-400) Mean Platelet Volume 9.9 fL (7.5-10.5) Immature Granulocyte % (Auto) 0.3 % (0-1) Neutrophils (%) (Auto) 90.3 % (40.0-77.0) H Lymphocytes (%) (Auto) 3.7 % (21.0-51.0) L Monocytes (%) (Auto) 4.7 % (3.0-13.0) Eosinophils (%) (Auto) 0.5 % (0.0-8.0) Basophils (%) (Auto) 0.5 % (0.0-5.0) Neutrophils # (Auto) 5.8 K/uL (1.8-7.7) Lymphocytes # (Auto) 0.2 K/uL (1.0-4.8) L Monocytes # (Auto) 0.3 K/uL (0.1-1.0) Eosinophils # (Auto) 0.03 K/uL (0.00-0.70) Basophils # (Auto) 0.03 K/uL (0.00-0.20) Absolute Immature Granulocyte (auto 0.02 K/uL (0-1) Nucleated Red Blood Cells 0.0 % (0.0-0.19) White Cell Morphology Comment See comments Sodium Level 133 mmol/L (136-145) L Potassium Level 3.6 mmol/L (3.5-5.1) Chloride Level 98 mmol/L (101-111) L Carbon Dioxide Level 27 mmol/L (21-32) Blood Urea Nitrogen 27 mg/dL (7-18) H Creatinine 1.3 mg/dL (0.5-1.3) Glomerular Filtration Rate Calc 65 mL/min (>90) Random Glucose 125 mg/dL (70-105) H Total Calcium 8.2 mg/dL (8.5-10.1) L Troponin I High Sensitivity 7 ng/L (4-75) 7 ng/L (4-75) Urine Color LIGHT-YELLOW (YELLOW) Urine Appearance CLEAR (CLEAR) Urine pH 5.0 (5.0-8.0) Urine Specific [place] 1.019 (1.001-1.031) Urine Protein NEGATIVE mg/dL (NEGATIVE) Urine Glucose (UA) >=1000 mg/dL (NEGATIVE) H Urine Ketones NEGATIVE mg/dL (NEGATIVE) Urine Occult Blood NEGATIVE (NEGATIVE) Urine Nitrate NEGATIVE (NEGATIVE) Urine Bilirubin NEGATIVE mg/dL (NEGATIVE) Urine Urobilinogen 0.2 mg/dL (0.2-1.0) Urine Leukocyte Esterase NEGATIVE Mery/uL Urine RBC 0-1 /HPF (0-1) Urine WBC 0-1 /HPF (0-1) Urine Squamous Epithelial Cells RARE /HPF (0-2) Urine Bacteria None /HPF (None Seen) Urine Opiates Screen NEGATIVE (NEGATIVE) Urine Barbiturates Screen NEGATIVE (NEGATIVE) Urine Phencyclidine Screen NEGATIVE (NEGATIVE) Urine Amphetamines Screen NEGATIVE (NEGATIVE) Urine Benzodiazepines Screen NEGATIVE (NEGATIVE) Urine Cocaine Screen POSITIVE (NEGATIVE) H Urine Marijuana (THC) Screen NEGATIVE (NEGATIVE) Labs Reviewed?: Yes EKG Comment: Atrial fibrillation, inferior infarct, old at a rate of 51. No STEMI interpreted by ER MD CT Scan Comment: [address] [address] IMAGING REPORT Signed PATIENT: MARY GILES MR#: [id number] : 1970 SEX: M AGE: 54 LOCATION: [facility] ORDER 1130 STATUS: REG ER REPORT#: [id number] SERVICE 1128 REASON: syncope ORDERING PHYSICIAN: GERTRUDE HOOVER NP PROCEDURE: HEAD WO - CT HEAD/BRAIN W/O CONTRAST CT HEAD/BRAIN W/O CONTRAST HISTORY: Tingling to the COMPARISON: None TECHNIQUE: Multiple sequential axial images of the head were obtained from the base of the skull through vertex. Patient was not given contrast through intravenous route. FINDINGS: The ventricles and extraventricular CSF spaces are nondilated for patient's age. Nonspecific white matter changes are seen. Hypodensities are seen in centrum semiovale bilaterally. There are bilateral basal ganglia calcifications. Old right cerebellar infarct is seen with encephalomalacia changes.. There is no midline shift, mass effect or herniation. No acute intracranial bleed is seen. Visualized portion of the paranasal sinuses are grossly within normal limits. IMPRESSION: 1. No acute intracranial bleed is seen. Old right cerebellar infarct. Nonspecific white matter changes are seen. CT was performed with one or more following dose reduction techniques: automated exposure control, adjustment of the mA and kv according to patient's size, or use of a iterative reconstruction technique. DICTATED BY: CHANTELLE AHUMADA MD DATE: 08/03/241225 ELECTRONICALLY SIGNED BY: CHANTELLE AHUMADA MD DATE: 08/03/24 122 ED Course ED Course Orders Procedure Category Date Status Time Cbc With Differential LAB 08/03/24 Complete 11:28 Basic Metabolic Panel LAB 08/03/24 Complete 11:28 Troponin I High LAB 08/03/24 Complete Sensitivity 11:28 12 Lead Ekg Tracing- EKG 08/03/24 Logged Technical 11:28 Ct Head/Brain W/O CT 08/03/24 Resulted Contrast 11:28 Urinalysis Profile LAB 08/03/24 Complete 11:28 Drug Screen Urine LAB 08/03/24 Complete 11:28 Troponin I High LAB 08/03/24 Complete Sensitivity 12:52 Meclizine Hcl 25 Mg PHA 08/03/24 Complete (Antivert 25 Mg) 12:52 0.9%Nacl 1000ml (Ns PHA 08/03/24 Logged 1000ml) 14:00 Current Medications Medications (Trade) Dose Ordered Sig/Teodoro Route PRN Reason Start Time Stop Time Status Last Admin Dose Admin Meclizine HCl (ANTIvert 25 mg) 25 mg ONCE STAT PO 08/03/24 12:52 08/03/24 12:54 DC 08/03/24 13:09 Sodium Chloride 1,000 ml @ 500 mls/hr Q2H STAT IV 08/03/24 14:00 08/03/24 15:59 UNV Vital Signs Date Time Temp Pulse Resp B/P (MAP) Pulse Ox O2 Delivery O2 Flow Rate FiO2 08/03/24 12:33 97.9 64 16 95/53 99 Room Air* 0 21 08/03/24 11:24 97.9 52 16 102/63 99 Room Air 0 Medical Decision Making MDM MDM: 54-year-old male with a history of hypertension, AFib, diabetes, and a pacemaker coming in for a syncopal episode. Patient states he was in his truck getting to work when he began to feel lightheaded, decided to get off and get a bottle of water from the ice chest when she bent over he had a near syncopal episode. States he could still hear people talking to him. Patient denies having any chest pain or chest discomfort, denies being recently ill.CBC shows a leukocytosis, normocytic anemia, hemoglobin is 10 and hematocrit 33, no thrombocytopenia. Chemistry shows mild hyponatremia at 1:33 a.m. and hypochloremia, mild hyperglycemia at 1:25 a.m., troponin x2 negative. EKGs not show any ST elevations or dysrhythmias. Troponin x2 negative. On reassessment patient states feels slightly better. Toxicology is positive for cocaine. Educated patient that he needs to stop doing cocaine. Educated to follow up with PCP in 1-2 days and to return to the ER if symptoms worsen. Differential diagnosis: ACS, dehydration, ICH, CVA Rationale: Tests considered and ordered secondary to shared decision making include: labs, ECG and radiology Previous outside records reviewed: Old ER visits. Risk of complication and/or morbidity or mortality of patient management: None Medications-Per medication reconciliation Need for hospitalization: Patient does meet criteria for hospitalization. Need for emergency major/minor surgery: No There are no social concerns with this patient. Prescription drug management Prescriptions will include symptomatic care Patient's prior external medical records from other ER visits were reviewed by me as indicated. Prior testing and results from previous visits were reviewed. Prior tests were taken into account with medical decision making and resource utilization, independent historian/historians were used to obtain complete m edical history. I independently interpreted the test that were performed, results were reviewed by me and considered findings on radiology if ordered. Medical management and examination interpretation discussions were had by me with other qualified healthcare professionals as indicated for the patient's care. DX & DISP Disposition: Discharge Departure Impression: Primary Impression: Cocaine use Additional Impression: Near syncope Condition: Stable Additional Instructions: Please stop using drugs. Follow up with PCP in 1-2 days. Return to the ER if your symptoms worsen. Referrals: SAM ZHONG MD (PCP) Time of Disposition: 14:01 I have reviewed the case, and I agree with, Diagnosis and Plan GERTRUDE HOOVER NP Aug 03, 2024 11:38
[2024-08-03 11:53] LABS: BASOPHILS # (AUTO) 0.03 K/uL (0.00-0.20); BASOPHILS % (AUTO) 0.5 % (0.0-5.0); EOSINOPHILS # (AUTO) 0.03 K/uL (0.00-0.70); EOSINOPHILS % (AUTO) 0.5 % (0.0-8.0); HEMATOCRIT 33.8 % (42-54); IMMATURE GRANULOCYTE ABSOLUTE 0.02 K/uL (0-1); LYMPHOCYTES # (AUTO) 0.2 K/uL (1.0-4.8); LYMPHOCYTES % (AUTO) 3.7 % (21.0-51.0); MEAN CORPUSCULAR HEMOGLOBIN 31.5 pg (27.0-33.0); MEAN CORPUSCULAR HGB CONC 32.2 g/dL (32.0-36.0); MEAN CORPUSCULAR VOLUME 97.7 fL (79-99); MONOCYTES # (AUTO) 0.3 K/uL (0.1-1.0); MONOCYTES % (AUTO) 4.7 % (3.0-13.0); NEUTROPHILS # (AUTO) 5.8 K/uL (1.8-7.7); NEUTROPHILS % (AUTO) 90.3 % (40.0-77.0); PLATELET COUNT (AUTO) 172 K/uL (130-400); RED BLOOD CELL COUNT(AUTO) 3.46 MIL/uL (4.50-6.20); RED CELL DISTRIBUTION WIDTH 13.6 % (11.0-15.5); WHITE BLOOD COUNT (AUTO) 6.4 K/uL (4.8-10.8)
[2024-08-03 12:05] LABS: CREATININE 1.3 mg/dL (0.5-1.3); POTASSIUM 3.6 mmol/L (3.5-5.1)
--- NOTE | 2024-08-03 12:29 | HMCIMG ---
CT HEAD/BRAIN W/O CONTRAST HISTORY: Tingling to the COMPARISON: None TECHNIQUE: Multiple sequential axial images of the head were obtained from the base of the skull through vertex. Patient was not given contrast through intravenous route. FINDINGS: The ventricles and extraventricular CSF spaces are nondilated for patient's age. Nonspecific white matter changes are seen. Hypodensities are seen in centrum semiovale bilaterally. There are bilateral basal ganglia calcifications. Old right cerebellar infarct is seen with encephalomalacia changes.. There is no midline shift, mass effect or herniation. No acute intracranial bleed is seen. Visualized portion of the paranasal sinuses are grossly within normal limits. IMPRESSION: 1. No acute intracranial bleed is seen. Old right cerebellar infarct. Nonspecific white matter changes are seen. CT was performed with one or more following dose reduction techniques: automated exposure control, adjustment of the mA and kv according to patient's size, or use of a iterative reconstruction technique.
[2024-08-03 12:47] LABS: AMPHET/METH SCREEN,URINE NEGATIVE (NEGATIVE); BARBITURATE SCREEN, URINE NEGATIVE (NEGATIVE); BENZODIAZEPINES SCREEN,URINE NEGATIVE (NEGATIVE); CANNABINOID SCREEN,URINE NEGATIVE (NEGATIVE); COCAINE SCREEN,URINE POSITIVE (NEGATIVE); OPIATE SCREEN,URINE NEGATIVE (NEGATIVE); PHENCYCLIDINE SCREEN,URINE NEGATIVE (NEGATIVE)
[2024-08-03 12:57] LABS: APPEARANCE,URINE CLEAR (CLEAR); BILIRUBIN,URINE NEGATIVE (NEGATIVE); COLOR,URINE LIGHT-YELLOW (YELLOW); GLUCOSE, URINE (UA) >=1000 mg/dL (NEGATIVE); KETONES,URINE NEGATIVE (NEGATIVE); LEUKOCYTE ESTERASE ,URINE NEGATIVE Leu/uL (NEGATIVE); NITRATE,URINE NEGATIVE (NEGATIVE); OCCULT BLOOD,URINE NEGATIVE (NEGATIVE); PROTEIN,URINE NEGATIVE (NEGATIVE); UROBILINOGEN,URINE 0.2 mg/dL (0.2-1.0)
[2024-08-03 12:59] LABS: ADD UA MICROSCOPIC YES
[2024-08-03 13:00] LABS: MUCUS,URINE RARE LPF (None Seen); RBC,URINE 0-1 /HPF (0-1); SQUAMOUS EPITHELIAL CELL,UR RARE /HPF (0-2); WBC,URINE 0-1 /HPF (0-1)
[2024-08-03] MEDS: mecliZINE HCL 25 MG TABLET PO STA (13:09)
[2024-08-03] MEDS: 0.9%NACL 1000ML 1,000 ML IV STA (14:37)
[2024-08-03 15:00] VITALS: BP 121/74; PULSE 66; RESP 16; TEMP 97.9; O2SAT 99
--- NOTE | 2024-08-03 15:03 | NUR ---
PT STABLE NO DISTRESS VITALS WNL NO C/O PAIN NOW, PT GIVEN INSTRUCSTIONS FOR HOME, PT IV D/C CATHETER INTACT. PT DRIVEN HOME BY FAMILY.
--- NOTE | 2024-08-03 15:15 | EKG ---
[facility] Test Date: 2024-08-03 Test Time: 11:54:37 Pat Name: MARY GILES Department: [facility] Room: Gender: M Legal Recovery Specialist: [id number] 1970 Requested By: GERTRUDE HOOVER Order Number: [id number] Reading MD: Basil Mendoza Measurements Intervals Rule Rate: 51 P: 0 IL: 0 QRS: -30 QRSD: 83 T: -27 QT: 485 QTc: 448 Interpretive Statements Atrial fibrillation Inferior infarct, old Compared to ECG 04/13/2024 05:27:26 Ventricular-paced complex(es) or rhythm no longer present Left-axis deviation no longer present ST (T wave) deviation no longer present Possible ischemia no longer present Myocardial infarct finding still present Electronically Signed On 08-04-2024 17:06:41 COIL MACHINE OPERATOR by Basil Mendoza Please click the below link to view image of tracing.
== END 2024-08-03 15:12 | disposition home or self-care (01) ==
LOC: EDH 11:22
DX: F14.90 Cocaine use, unspecified, uncomplicated (principal); R55 Syncope and collapse; I48.91 Unspecified atrial fibrillation; Z79.01 Long term (current) use of anticoagulants; Z79.02 Long term (current) use of antithrombotics/antiplatelets; Z79.899 Other long term (current) drug therapy; Z86.73 Personal history of transient ischemic attack (TIA), and cerebral infarction without residual deficits; Z88.5 Allergy status to narcotic agent; Z95.810 Presence of automatic (implantable) cardiac defibrillator
CPT/HCPCS: 99284; 96360; 70450; 84484 ×2; 80048; 80305; 85025; 36415; 93005; 81001; J7030

== ENCOUNTER 2024-09-28 22:43 | Inpatient (IN) | payer SELFPAY ==
[~2024-09-28] VITALS: Ht 165.1 cm; Wt 79.1 kg
--- NOTE | 2024-09-28 23:02 | ERN ---
ED Note History of Present Illness Stated Complaint: CHEST PAIN Chief Complaint: Chest Pain Time Seen by MD: 22:50 Time Seen by Midlevel: 22:50 Dictation: Mr. Oleary is a 54-year-old gentleman with history of hypertension, hyperlipidemia, AICD, CHF, chronic atrial fibrillation, and cocaine abuse who presented to the emergency department this evening for evaluation of chest pain. He states he has felt fatigued for the past few days and tonight at 6:00 p.m. he developed anterior chest pain radiating to his neck. CP occurring at rest. Accompanying symptoms include nausea and shortness of brath. He states he has also felt slight nausea as well as throat pain. He denies having fever, chills, cough, palpitations, edema, abdominal pain, vomiting, diarrhea, dysuria, headache, or dizziness. He denies use of alcohol or recreational drugs PCP: [facility] Allergies: Coded Allergies: No Known Allergies (Unverified Allergy, Unknown, 09/25/17) morphine (Unverified Allergy, Unknown, DIZZINESS, 04/13/24) WORSING MY STATE OF HEALTH, AFTER TAKING IT FEELS WORSE THAN MY USUAL STATE Home Meds Active Scripts Clindamycin HCl (Clindamycin HCl) 300 Mg Capsule, 1 CAP PO QID for 7 Days, #28 CAP 0 Refills Prov:MICHELLE GARCIA 07/13/24 Clopidogrel Bisulfate (Plavix) 75 Mg Tablet, 75 MG PO DAILY, #30 TAB 0 Refills Prov:WILL ANDREPCSORAYA 04/13/24 Carvedilol (Carvedilol) 12.5 Mg Tablet, 12.5 MG PO BID, #60 TAB 0 Refills Prov:WILL ANDRE 04/13/24 [doCUSate SODIUM 100 MG CAP] 100 MG CAPSULE No Conflict Check, 100 MG PO BID PRN for c, #60 0 Refills Prov:WILL ANDRE 04/13/24 Gabapentin (Gabapentin) 100 Mg Capsule, 100 MG PO DAILY PRN for daily for 5 Days, #5 CAP Prov:HECTOR MELTON MD 02/08/24 Sucralfate (Carafate) 1 Gm Tablet, 1 GM PO ACHS, #60 TAB 0 Refills Prov:JOHN VARGAS MD 12/08/20 Spironolactone (Aldactone) 25 Mg Tablet, 25 MG PO DAILY, #30 TAB 0 Refills Prov:JOHN VARGAS MD 12/08/20 Pantoprazole Sodium (Protonix) 40 Mg Tablet.dr, 40 MG PO BIDAC for 30 Days, #60 TAB 0 Refills Prov:JOHN VARGAS MD 12/08/20 Losartan Potassium (Cozaar) 50 Mg Tablet, 25 MG PO DAILY for 30 Days, #30 TAB Prov:VIRGINIA REILLY MD 09/11/17 Rivaroxaban (Xarelto) 20 Mg Tablet, 20 MG PO DAILY for 30 Days, #30 TAB Prov:VIRGINIA REILLY MD 09/11/17 Furosemide (Lasix 20Mg Tab) 20 Mg Tablet, 60 MG PO DAILY for 30 Days, #30 TAB Prov:VIRGINIA REILLY MD 09/11/17 Carvedilol (Coreg) 6.25 Mg Tablet, 6.25 MG PO BID for 30 Days, #60 TAB Prov:VIRGINIA REILLY MD 09/11/17 Amiodarone HCl (Pacerone) 200 Mg Tablet, 200 MG PO DAILY for 30 Days, #30 TAB Prov:VIRGINIA REILLY MD 09/11/17 Acetaminophen (Tylenol) 325 Mg Tablet, 650 MG PO Q6H PRN for TEMPERATURE GREATER THAN 101.5 for 5 Days, #15 TAB Prov:VIRGINIA REILLY MD 09/11/17 Reported Medications Hydroxyzine HCl (Hydroxyzine HCl) 25 Mg Tablet, 25 MG PO BID PRN for ANXIETY/AGITATION, TAB 04/09/24 Cetirizine HCl (Cetirizine HCl) 10 Mg Tablet, 10 MG PO DAILY, TAB 04/09/24 Spironolactone (Spironolactone) 25 Mg Tablet, 25 MG PO DAILY, TAB 01/29/24 Losartan Potassium (Losartan Potassium) 25 Mg Tablet, 25 MG PO DAILY, TAB 01/29/24 Furosemide (Furosemide) 20 Mg Tablet, 20 MG PO DAILY, TAB 01/29/24 Rivaroxaban (Xarelto) 20 Mg Tablet, 20 MG PO HS, TAB 01/29/24 Rivaroxaban (Xarelto) 20 Mg Tablet, 20 MG PO DAILY, TAB 12/02/20 Amiodarone HCl (Amiodarone HCl) 200 Mg Tablet, 200 MG PO DAILY, TAB 12/02/20 Carvedilol (Carvedilol) 6.25 Mg Tablet, 6.25 MG PO BID, TAB 12/02/20 Losartan Potassium (Losartan Potassium) 25 Mg Tablet, 25 MG PO DAILY, TAB 12/02/20 Furosemide (Furosemide) 20 Mg Tablet, 20 MG PO DAILY, TAB 12/02/20 Past Medical History Past Medical History: A-Fib, High Cholesterol, Hypertension Additional Past Medical Hx: BRADYCARDIA Surgical History: Other Surgical History Other: PACEMAKER Family History: CAD Social History: Negative, Lives with family RN Note Reviewed/Agreed w/PFSH: Yes Review of System Dictation REVIEW OF SYSTEMS: CONSTITUTIONAL: Patient denies fevers, chills, sweats and weight changes. Reports fatigue. EYES: Patient denies any visual symptoms. EARS, NOSE, AND THROAT: No difficulties with hearing. No symptoms of rhinitis, Reported sore throat. CARDIOVASCULAR: Patient denies palpitations, orthopnea and paroxysmal nocturnal dyspnea. States that at 6:00 p.m. he developed anterior chest pain radiating to his neck. RESPIRATORY: No wheezing or cough.Reports shortness of breath. GI: No vomiting, diarrhea, constipation, abdominal pain, hematochezia or melena. Reported nausea : No urinary hesitancy or dribbling. No nocturia or urinary frequency. No abnormal urethral discharge. MUSCULOSKELETAL: No myalgias or arthralgias. NEUROLOGIC: No chronic headaches, no seizures. Patient denies numbness, tingling or weakness. PSYCHIATRIC: Patient denies problems with mood disturbance. No problems with anxiety. ENDOCRINE: No excessive urination or excessive thirst. DERMATOLOGIC: Patient denies any rashes or skin changes. Initial Vital Sign VS Vital Signs Date Time Temp Pulse Resp B/P (MAP) Pulse Ox O2 Delivery O2 Flow Rate FiO2 09/28/24 22:44 98.6 65 18 121/78 100 Room Air 0 09/28/24 23:02 21 Physical Exam Dictation Vital signs: Reviewed. Afebrile Constitutional: No acute distress. Non-toxic appearing. Head/Face: Normocephalic, atraumatic. Eyes: Periorbital areas with no swelling, redness, or edema. Lids and lashes are normal. Conjunctival injection is absent. Sclera anicteric. Pupils equal, round, reactive to light. ENT: Pinnas intact and no signs of trauma or erythema. Ear canals clear and no discharge. TMs no erythema. No nasal discharge or bleeding noted. Oropharynx with no exudate, redness, swelling, masses, exudates, or evidence of obstruction. Uvula midline. Mucous membranes moist. Neck: Trachea midline, no masses palpated, and no cervical lymphadenopathy. No swelling. Supple, full range of motion. Chest/Axilla: No tenderness, no crepitus, no paradoxical movement, no retractions. Cardiovascular: Irregular rate, regular rhythm, no murmur, no gallops. Symmetric pulses. No peripheral edema. 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 Normotensive. Chest pain 1/ Respiratory: Respirations even and unlabored. Lung sounds clear; no wheezes, rales or rhonchi. Room air SpO2 99%. Gastrointestinal: Inspection is normal. No distention is appreciated. Bowel sounds are normal. No mass or organomegaly . There is no tenderness. No rebound. No rigidity. No voluntary or involuntary guarding. No Bliss's sign. Neurological: Normal speech, gross motor function intact, gross sensory function intact. No focal weakness/Paresthesia. Musculoskeletal/Extremities: All extremities have full range of motion, no pain or tenderness on palpation. Symmetric pulses. Integumentary: Intact. Skin is flushed, warm and dry. Cap refill less than 3 seconds. Results (Laboratory/Radiology) Laboratory/Radiology Laboratory Tests Test 09/28/24 22:59 09/28/24 23:16 White Blood Count 5.1 K/uL (4.8-10.8) Red Blood Count 3.27 MIL/uL (4.50-6.20) L Hemoglobin 9.1 g/dL (14.0-18.0) L Hematocrit 29.1 % (42-54) L Mean Corpuscular Volume 89.0 fL (79-99) Mean Corpuscular Hemoglobin 27.8 pg (27.0-33.0) Mean Corpuscular Hemoglobin Concent 31.3 g/dL (32.0-36.0) L Red Cell Distribution Width 15.7 % (11.0-15.5) H Platelet Count 196 K/uL (130-400) Mean Platelet Volume 11.0 fL (7.5-10.5) H Immature Granulocyte % (Auto) 0.2 % (0-1) Neutrophils (%) (Auto) 55.9 % (40.0-77.0) Lymphocytes (%) (Auto) 29.5 % (21.0-51.0) Monocytes (%) (Auto) 11.3 % (3.0-13.0) Eosinophils (%) (Auto) 2.3 % (0.0-8.0) Basophils (%) (Auto) 0.8 % (0.0-5.0) Neutrophils # (Auto) 2.9 K/uL (1.8-7.7) Lymphocytes # (Auto) 1.5 K/uL (1.0-4.8) Monocytes # (Auto) 0.6 K/uL (0.1-1.0) Eosinophils # (Auto) 0.12 K/uL (0.00-0.70) Basophils # (Auto) 0.04 K/uL (0.00-0.20) Absolute Immature Granulocyte (auto 0.01 K/uL (0-1) Nucleated Red Blood Cells 0.0 % (0.0-0.19) Sodium Level 133 mmol/L (136-145) L Potassium Level 3.8 mmol/L (3.5-5.1) Chloride Level 100 mmol/L (101-111) L Carbon Dioxide Level 25 mmol/L (21-32) Blood Urea Nitrogen 21 mg/dL (7-18) H Creatinine 1.3 mg/dL (0.5-1.3) Glomerular Filtration Rate Calc 65 mL/min (>90) Random Glucose 112 mg/dL (70-105) H Total Calcium 8.3 mg/dL (8.5-10.1) L Total Creatine Kinase 216 U/L (21-232) # Troponin I High Sensitivity 8 ng/L (4-75) B-Type Natriuretic Peptide 140 pg/mL (0-100) H Influenza Type A Antigen Negative For Type A Influenza Type B Antigen Negative For Type B SARS-CoV-2, RNA, NAAT NEGATIVE SARS CoV-2 Group A Streptococcus Rapid negative (NEGATIVE) Labs Reviewed?: Yes EKG Comment: EKG Interpretation: Time Reviewed: 2244 Ventricular rate: 57 bpm QRS duration: [address] segment elevation or depression. Clinical impression: Atrial fibrillation EKG Reviewed and interpreted by Dr. Xuan Cordova ED Course ED Course Orders Procedure Category Date Status Time Vital Signs Per CPOE 09/28/24 Transmitted Routine 22:57 B-Type Natriuretic LAB 09/28/24 Complete Peptide 22:57 Chest 1vw RAD 09/28/24 Taken 22:57 12 Lead Ekg Tracing- EKG 09/28/24 Logged Technical 22:57 Oxygen By Nc/Pulse Ox CPOE 09/28/24 Transmitted 22:57 Maintain Iv CPOE 09/28/24 Transmitted 22:57 Iv Insertion CPOE 09/28/24 Transmitted 22:57 Cardiac Monitoring CPOE 09/28/24 Transmitted 22:57 Pulse Oximetry With CPOE 09/28/24 Transmitted Vs And Prn 22:57 Cbc With Differential LAB 09/28/24 Complete 22:57 Activity: Br W/Brp CPOE 09/28/24 Transmitted With Assist 22:57 Creatine Kinase, Total LAB 09/28/24 Complete 22:57 Troponin I High LAB 09/28/24 Complete Sensitivity 22:57 Bedside Troponin-I LAB.ER 09/28/24 In Process (Poc) 22:57 Basic Metabolic Panel LAB 09/28/24 Complete 22:57 Rapid (Group A Strep) LAB 09/28/24 Complete 23:10 Influenza Type A & B, LAB 09/28/24 Complete Rapid 23:10 Covid Rna Naat LAB 09/28/24 Complete 23:10 Troponin I High LAB 09/29/24 Logged Sensitivity 00:23 Urinalysis Profile LAB 09/29/24 In Process 00:23 Drug Screen Urine LAB 09/29/24 In Process 00:23 Aspirin 325mg Ec Tab PHA 09/29/24 Complete (Aspirin 325mg Ec T 00:30 Nitroglycerin 1gm PHA 09/29/24 Complete Oint (Nitroglycerin 1g 00:30 Admit Orders ADM 09/29/24 Transmitted 00:40 Consistent Carb DIET 09/30/24 Transmitted Breakfast Troponin I High LAB 09/29/24 Logged Sensitivity 05:00 Troponin I High LAB 09/29/24 Logged Sensitivity 11:00 Troponin I High LAB 09/29/24 Logged Sensitivity 17:00 Basic Metabolic Panel LAB 09/29/24 Logged 04:00 Cbc With Differential LAB 09/29/24 Logged 04:00 Magnesium LAB 09/29/24 Logged 04:00 Phosphorus LAB 09/29/24 Logged 04:00 Activity: Ad Adrienne CPOE 09/29/24 Transmitted 00:40 Apply Knee High Teds CPOE 09/29/24 Transmitted 00:40 Apply Scds CPOE 09/29/24 Transmitted 00:40 Condition: CPOE 09/29/24 Transmitted 00:40 Nurse To Enter Home CPOE 09/29/24 Transmitted Medication 00:40 Oxygen By Nc/Pulse Ox CPOE 09/29/24 Transmitted 00:40 Telemetry Monitoring CPOE 09/29/24 Transmitted 00:40 Vital Signs(Adult CPOE 09/29/24 Transmitted Hospitalist) 00:40 Acetaminophen 325 Tab PHA 09/29/24 In Process (Tylenol 325mg Tab 01:00 Aspirin 81mg Ec Tab PHA 09/29/24 In Process (Aspirin 81mg Ec Tab 09:00 Enoxaparin Sodium 40 PHA 09/29/24 In Process Mg/0.4 Ml (Lovenox) 09:00 Famotidine 20mg Tab PHA 09/29/24 In Process (Pepcid 20mg Tab) 09:00 Furosemide 40mg Vial PHA 09/29/24 In Process (Lasix 40mg Vial) 09:00 Hydralazine 20mg Inj PHA 09/29/24 In Process (Apresoline 20mg In 01:00 Nitroglycerin 1gm PHA 09/29/24 In Process Oint (Nitroglycerin 1g 01:00 Ondansetron 4mg Inj PHA 09/29/24 In Process (Zofran 4mg Inj) 01:00 Daily Fluid Intake CPOE 09/29/24 Transmitted Restriction 00:40 Daily Weights CPOE 09/29/24 Transmitted 00:40 I&O Q Shift CPOE 09/29/24 Transmitted 00:40 Metoprolol Tartrate PHA 09/29/24 In Process 25 Mg Tab (Lopressor 09:00 Pharmacy PHA 09/29/24 Complete Communication 01:00 Metoprolol Tartrate PHA 09/29/24 In Process (Lopressor) 01:00 Current Medications Medications (Trade) Dose Ordered Sig/Teodoro Route PRN Reason Start Time Stop Time Status Last Admin Dose Admin Acetaminophen (TYLenol 325MG TAB) 650 mg Q6H PRN PO TEMPERATURE GREATER THAN 101.5 09/29/24 01:00 10/29/24 00:59 Aspirin (Aspirin 325mg Ec Tab) 325 mg ONCE ONCE PO 09/29/24 00:30 09/29/24 00:31 DC 09/29/24 00:34 Aspirin (Aspirin 81mg Ec Tab) 81 mg DAILY PO 09/29/24 09:00 10/29/24 08:59 Enoxaparin Sodium (Lovenox) 40 mg DAILY SQ 09/29/24 09:00 10/29/24 08:59 Famotidine (Pepcid 20mg Tab) 20 mg DAILY PO 09/29/24 09:00 10/29/24 08:59 Furosemide (LASix 40MG VIAL) 20 mg BID IVP 09/29/24 09:00 10/29/24 08:59 Hydralazine HCl (APRESOLine 20MG INJ) 10 mg Q6H PRN IV For:SBP above 160;DBP above 90 09/29/24 01:00 10/29/24 00:59 Metoprolol Tartrate (loprESSOR) 5 mg Q5M PRN IV AFIB RVR; HR>120BPM 09/29/24 01:00 10/29/24 00:59 Metoprolol Tartrate (loprESSOR) 12.5 mg BID PO 09/29/24 09:00 10/29/24 08:59 Nitroglycerin (Nitroglycerin 1gm Oint) 0.5 inch ONCE ONCE TD 09/29/24 00:30 09/29/24 00:31 DC 09/29/24 00:35 Nitroglycerin (Nitroglycerin 1gm Oint) 0.5 inch Q8H TD 09/29/24 01:00 10/29/24 00:59 Ondansetron HCl (zoFRAN 4MG INJ) 4 mg Q6H PRN IV NAUSEA/VOMITING 09/29/24 01:00 10/29/24 00:59 Pharmacy Profile Note (Pharmacy Communication) 1 each ONCE MISC 09/29/24 01:00 10/06/24 00:59 Vital Signs Date Time Temp Pulse Resp B/P (MAP) Pulse Ox O2 Delivery O2 Flow Rate FiO2 09/29/24 00:52 98.2 64 16 125/71 100 Room Air* 0 21 09/28/24 23:02 98.4 59 16 127/75 99 Room Air* 0 21 09/28/24 22:44 98.6 65 18 121/78 100 Room Air 0 Vital signs stable. Twelve lead EKG reflects an atrial fibrillation with ventricular rate 57; no ST elevation. Chest x-ray revealed cardiomegaly.. He continues to have a chest pain radiating to the neck/throat; 08/24. Laboratory findings as noted below. H/H 9.1/29.1, Na/Cl 133/100, BUN 21, GFR 65, glucose 112, 8.3, CK 216, and BNP 140. Initial troponin negative. HEART score=4 (moderate risk). While in the emergency department he received dose ASA 325 as well as NTP 1/2". Discussed findings with SORAYA Matamoros who accepts patient for Hospitalist group. HEART Score Response (Comments) Value History: High suspicion (+2) 2 EKG: Normal 0 Age: 45-65yrs (+1) 1 Risk Factors: 3+ risk factors (+2) 2 Initial Troponin: Normal limit (0) 0 HEART Score Risk: Mod Risk for MACE (4-6) Total 5 CHADS-VASc Score Response (Comments) Value CHF History: Yes (+1) 1 Hypertension Hx: Yes (+1) 1 Total 2 Medical Decision Making MDM MDM: Differential diagnosis: ACS, CHF exacerbation, influenza, COVID Rationale: Tests considered and ordered secondary to shared decision making include: labs, ECG and radiology Previous outside records reviewed: Old ER visits. Risk of complication and/or morbidity or mortality of patient management: None Medications-Per medication reconciliation Need for hospitalization: Patient does meet criteria for hospitalization. Need for emergency major/minor surgery: No There are no social concerns with this patient. Prescription drug management Prescriptions will include symptomatic care Patient's prior external medical records from other ER visits were reviewed by me as indicated. Prior testing and results from previous visits were reviewed. Prior tests were taken into account with medical decision making and resource utilization, independent historian/historians were used to obtain complete medical history. I independently interpreted the test that were performed, results were reviewed by me and considered findings on radiology if ordered. Medical management and examination interpretation discussions were had by me with other qualified healthcare professionals as indicated for the patient's care. DX & DISP Disposition: Discharge Departure Impression: Primary Impression: Angina at rest Additional Impressions: Atrial fibrillation, Anemia of chronic disease, CHF (congestive heart failure) Condition: Stable Assign Patient to: Dr. Peter Ortiz Referrals: SAM MATAMOROS MD (PCP) ELYSSA WONG NP Sep 28, 2024 23:02
[2024-09-28 23:05] LABS: BASOPHILS # (AUTO) 0.04 K/uL (0.00-0.20); BASOPHILS % (AUTO) 0.8 % (0.0-5.0); EOSINOPHILS # (AUTO) 0.12 K/uL (0.00-0.70); EOSINOPHILS % (AUTO) 2.3 % (0.0-8.0); HEMATOCRIT 29.1 % (42-54); IMMATURE GRANULOCYTE ABSOLUTE 0.01 K/uL (0-1); LYMPHOCYTES # (AUTO) 1.5 K/uL (1.0-4.8); LYMPHOCYTES % (AUTO) 29.5 % (21.0-51.0); MEAN CORPUSCULAR HEMOGLOBIN 27.8 pg (27.0-33.0); MEAN CORPUSCULAR HGB CONC 31.3 g/dL (32.0-36.0); MONOCYTES # (AUTO) 0.6 K/uL (0.1-1.0); MONOCYTES % (AUTO) 11.3 % (3.0-13.0); NEUTROPHILS # (AUTO) 2.9 K/uL (1.8-7.7); NEUTROPHILS % (AUTO) 55.9 % (40.0-77.0); PLATELET COUNT (AUTO) 196 K/uL (130-400); RED BLOOD CELL COUNT(AUTO) 3.27 MIL/uL (4.50-6.20); RED CELL DISTRIBUTION WIDTH 15.7 % (11.0-15.5); WHITE BLOOD COUNT (AUTO) 5.1 K/uL (4.8-10.8)
[2024-09-28 23:16] LABS: CREATININE 1.3 mg/dL (0.5-1.3); POTASSIUM 3.8 mmol/L (3.5-5.1)
[2024-09-28 23:24] LABS: B-TYPE NATRIURETIC PEPTIDE 140 pg/mL (0-100)
[2024-09-28 23:48] LABS: RAPID GROUP A STREP negative (NEGATIVE)
[2024-09-28 23:54] LABS: SARS-CoV-2, RNA, NAAT NEGATIVE SARS CoV-2 (NEGATIVE)
[2024-09-28 23:58] LABS: INFLUENZA TYPE A Negative For Type A (NEGATIVE); INFLUENZA TYPE B Negative For Type B (NEGATIVE)
[2024-09-29] MEDS: ASPIRIN 325MG EC TAB PO ONE (00:34)
[2024-09-29] MEDS: NITROGLYCERIN 1GM OINT 1 INCH/1GM TD ONE (00:35)
--- NOTE | 2024-09-29 00:51 | HP ---
History of Present Illness Reason for Visit: cp Referring MD: Elías History of Present Illness Ms. Oleary is a 54-year-old male that was seen and examined today on 09/29/2024. Patient is a good historian of personal health. Patient states that he came to the emergency department with a chief complaint of chest pain. Onset was 09/28/2024 at 6:00 p.m.. Location is midsternal. Duration is on and off. Patient reports three episodes. Each episode lasted about 1 minute. Character pain is described as pressure. Pain radiates to anterior neck. Patient denies any aggravating factors. Patient denies any alleviating factors. Patient denies any associated shortness of breath. Today in the emergency department vital signs within normal limits, CBC unremarkable, chemistry unremarkable, no urinalysis has been collected or sent to lab, chest x-ray is pending radiology interpretation however my initial impression is that there was no consolidation or infiltrates, flu screen is negative, COVID screen is negative, rapid antigen testing for strep group a is negative. Emergency room physician recommended that patient be admitted with a diagnosis of chest pain. Past Medical History Patient History: Alzheimer's disease MOTHER Carcinomas SISTER, , Age: 60 years and older, Cause: Cancer FH: breast cancer in first degree relative SISTER, Onset:50's - 60 FH: hypercholesterolemia FATHER, , Age: 50's - 60, Cause: Motor vehicle accident Hiatal hernia Hypertension BROTHER Unknown FATHER, Onset:50's - 60 No Family History of: Asthma Cardiovascular disease Chronic obstructive pulmonary disease Completed stroke Diabetes mellitus Immunocompromised state Sudden ADDITIONAL PAST MEDICAL HISTORY: [Hypertension, hyperlipidemia, CHF with LVEF 45-50% by 2D echo on 04/09/2024, atrial fibrillation] SOCIAL HISTORY: [Negative for smoking, alcohol use, drug use. Patient lives with a significant other Heidi Orlando. Patient is typically independent of his ADLs. Patient denies difficulty pain is bills. Patient is currently unemployed. Patient has poor access to health care due to lack of health insurance.] SURGICAL HISTORY: [AICD, heart stents, cholecystectomy] Review of Systems General: No Fever, No Chills, No Night Sweats, No Fatigue, No Malaise, No Appetite, No Other HEENT: No Head Aches, No Visual Changes, No Eye Pain, No Ear Pain, No Dysphasia, No Sinus Congestion, No Post Nasal Drip, No Sore Throat, No Other Pulmonary: No Dyspnea, No Cough, No Pleuritic Chest Pain, No Other Cardiovascular: Chest Pain; No: Palpitations, Orthopnea, Paroxysmal Noc. Dyspnea, Edema, Lt Headedness, Other Gastrointestinal: No: Nausea, Vomiting, Abdominal Pain, Diarrhea, Constipation, Melena, Hematochezia, Other Genitourinary: No Dysuria, No Frequency, No Incontinence, No Hematuria, No Retention, No Other Musculoskeletal: No: other, neck pain, shoulder pain, arm pain, back pain, hand pain, leg pain, foot pain Skin: No Urticaria, No Rash, No Other Neurological: No: Weakness, Numbness, Incoordination, Change in speech, Confusion, Seizures, Other Allergies: Coded Allergies: No Known Allergies (Unverified Allergy, Unknown, 09/25/17) morphine (Unverified Allergy, Unknown, DIZZINESS, 04/13/24) WORSING MY STATE OF HEALTH, AFTER TAKING IT FEELS WORSE THAN MY USUAL STATE Scheduled Atorvastatin Calcium (Atorvastatin Calcium), 1 TAB PO DAILY, (Reported) Carvedilol (Carvedilol), 12.5 MG PO BID Cetirizine HCl (Cetirizine HCl), 10 MG PO DAILY, (Reported) Clopidogrel Bisulfate (Plavix), 75 MG PO DAILY Dapagliflozin Propanediol (Farxiga), 1 TAB PO DAILY, (Reported) Furosemide (Furosemide), 20 MG PO DAILY, (Reported) Isosorbide Mononitrate (Isosorbide Mononitrate ER), 1 TAB PO DAILY Losartan Potassium (Losartan Potassium), 25 MG PO DAILY, (Reported) Metoprolol Succinate (Toprol Xl), 25 MG PO DAILY Pantoprazole Sodium (Pantoprazole Sodium), 1 TAB PO DAILY, (Reported) Rivaroxaban (Xarelto), 20 MG PO HS, (Reported) Spironolactone (Spironolactone), 25 MG PO DAILY, (Reported) Scheduled PRN Gabapentin (Gabapentin), 100 MG PO DAILY PRN for daily Hydroxyzine HCl (Hydroxyzine HCl), 25 MG PO BID PRN for ANXIETY/AGITATION, (Reported) [doCUSate SODIUM 100 MG CAP], 100 MG PO BID PRN for c Discontinued Medications Acetaminophen (Tylenol), 650 MG PO Q6H PRN for TEMPERATURE GREATER THAN 101.5 Amiodarone HCl (Pacerone), 200 MG PO DAILY Amiodarone HCl (Amiodarone HCl), 200 MG PO DAILY, (Reported) Carvedilol (Coreg), 6.25 MG PO BID Carvedilol (Carvedilol), 6.25 MG PO BID, (Reported) Clindamycin HCl (Clindamycin HCl), 1 CAP PO QID Furosemide (Lasix 20Mg Tab), 60 MG PO DAILY Furosemide (Furosemide), 20 MG PO DAILY, (Reported) Losartan Potassium (Cozaar), 25 MG PO DAILY Losartan Potassium (Losartan Potassium), 25 MG PO DAILY, (Reported) Pantoprazole Sodium (Protonix), 40 MG PO BIDAC Rivaroxaban (Xarelto), 20 MG PO DAILY Rivaroxaban (Xarelto), 20 MG PO DAILY, (Reported) Spironolactone (Aldactone), 25 MG PO DAILY Sucralfate (Carafate), 1 GM PO ACHS Exam Vital Signs Vital Signs Date Time Temp Pulse Resp B/P (MAP) Pulse Ox O2 Delivery O2 Flow Rate FiO2 09/28/24 23:02 98.4 59 16 127/75 99 Room Air* 0 21 General Appearance: Alert, Oriented X3, Cooperative, No acute distress HEENT: Atraumatic, PERRLA, EOMI Respiratory: Clear to auscultation, Normal air movement, NL respiratory effort Cardiovascular: Regular rate, Regular rhythm, Normal S1, Normal S2 Abdominal: Normal bowel sounds, Soft, No tenderness Extremities: No edema Skin: No significant lesion Neuro: Normal speech, Strength at 5/5 X4 ext, Sensation intact, Cranial nerves 3-12 NL Psych/Mental Status: Mental status NL, Mood NL, Thoughts/Content NL Assessment/Plan ASSESSMENT: [ Chest pain, POA Hypertension Hyperlipidemia CHF with LVEF 45-50% by 2D echo on 04/09/2024 Atrial fibrillation] PLAN: [ Admit patient to medical floor as inpatient status. Place patient on telemetry monitoring. Chest pain: Administer aspirin 325 mg by mouth times 1 dose Continue aspirin 81 mg by mouth once daily Nitropaste 0.5 inches anterior chest wall every 8 hours Trend troponin every 6 hours x 3 sets Supplemental oxygen to maintain O2 saturation greater than 92% Consult cardiology if any elevation in troponin or troponin uptrending Hypertension, hyperlipidemia, CHF, atrial fibrillation: Consider resuming home medications once they are reconciled For now: Hydralazine 10 mg IV every 4 hours for systolic blood pressure greater than 160 mmHg Metoprolol 12.5 mg by mouth twice daily Administer metoprolol 5 mg IV every 5 minutes as needed for AFib RVR with heart rate greater than 120 beats per minute max three doses. Intake and output every shift Weight patient daily 1500 mL daily fluid restriction Lasix 20 mg IV twice daily GI prophylaxis, famotidine DVT prophylaxis Lovenox for now, consider switching to DOAC if patient takes one in the outpatient setting. ADVANCED CARE PLANNING 1. Which of the following were discussed? Hospice Care - Yes Therapeutic options - Yes Advance Directives - Yes- patient states he does not have any advance directives in place at this time, however his significant other can make decisions for him if he becomes unable. Other discussions - patient wishes to remain a full Code at this time 2. Discussed with who? Patient 3. Voluntary nature of this service was explained to the patient? Yes 4. Amount of time spent - ___ 16 minutes ____ 5. Reviewed by Physician? (if this service was performed by NPP) Yes This document was generated in part using voice recognition software, occasional wrong word or sound alike substitutions may have occurred due to the inherent limitations of voice recognition software. Read the chart carefully and recognize using context, where the substitutions have occurred. Although every effort was made to edit the content, boat puller and typing errors may occur ATTESTATION BY PHYSICIAN I have seen and examined the patient. I reviewed the documentation, medical decision making, and treatment plan as noted by the mid-level provider above. I do not agree with their plan the following amendments should be made to the medical plan AMMENDMENT: - Consult cardiology if ACS is a concern. Consult has been placed. - Lexiscan stress test has been ordered - Restarted home medications that were ready at time of admission - Will have pacemaker device interrogated Tigre Norwood MD Internal Medicine [facility] Sep 29, 2024 00:51 TIGRE NORWOOD MD Oct 01, 2024 17:05
[2024-09-29] MEDS ORDERED: PHARMACY COMMUNICATION MISC SCH (01:00)
[2024-09-29] MEDS ORDERED: ondanSETRON 4MG INJ IV PRN (01:00)
[2024-09-29] MEDS: NITROGLYCERIN 1GM OINT 1 INCH/1GM TD SCH (01:00)
[2024-09-29] MEDS ORDERED: hydrALAZine 20MG/ML VIAL IV PRN (01:00)
[2024-09-29] MEDS ORDERED: metoPROLOL tartRATE 1 MG/ML 5ML VIAL IV PRN (01:00)
[2024-09-29] MEDS ORDERED: DAPA10TA PO (01:06)
[2024-09-29] MEDS ORDERED: PANT40TA54 PO (01:06)
[2024-09-29] MEDS ORDERED: ATOR40TA71 PO (01:06)
[2024-09-29 01:21] LABS: APPEARANCE,URINE CLEAR (CLEAR); BILIRUBIN,URINE NEGATIVE (NEGATIVE); COLOR,URINE LIGHT-YELLOW (YELLOW); GLUCOSE, URINE (UA) >=1000 mg/dL (NEGATIVE); KETONES,URINE NEGATIVE (NEGATIVE); LEUKOCYTE ESTERASE ,URINE NEGATIVE Leu/uL (NEGATIVE); NITRATE,URINE NEGATIVE (NEGATIVE); OCCULT BLOOD,URINE NEGATIVE (NEGATIVE); PH,URINE 6.5 (5.0-8.0); PROTEIN,URINE NEGATIVE (NEGATIVE); UROBILINOGEN,URINE 0.2 mg/dL (0.2-1.0)
[2024-09-29 01:22] LABS: ADD UA MICROSCOPIC YES
[2024-09-29 01:24] LABS: WBC,URINE 0-1 /HPF (0-1)
[2024-09-29 01:42] LABS: AMPHET/METH SCREEN,URINE NEGATIVE (NEGATIVE); BARBITURATE SCREEN, URINE NEGATIVE (NEGATIVE); BENZODIAZEPINES SCREEN,URINE NEGATIVE (NEGATIVE); CANNABINOID SCREEN,URINE NEGATIVE (NEGATIVE); COCAINE SCREEN,URINE NEGATIVE (NEGATIVE); OPIATE SCREEN,URINE NEGATIVE (NEGATIVE); PHENCYCLIDINE SCREEN,URINE NEGATIVE (NEGATIVE)
[2024-09-29 06:08] LABS: BASOPHILS # (AUTO) 0.02 K/uL (0.00-0.20); BASOPHILS % (AUTO) 0.4 % (0.0-5.0); EOSINOPHILS # (AUTO) 0.13 K/uL (0.00-0.70); EOSINOPHILS % (AUTO) 2.8 % (0.0-8.0); HEMATOCRIT 26.8 % (42-54); IMMATURE GRANULOCYTE ABSOLUTE 0.01 K/uL (0-1); LYMPHOCYTES # (AUTO) 1.4 K/uL (1.0-4.8); LYMPHOCYTES % (AUTO) 29.7 % (21.0-51.0); MEAN CORPUSCULAR HEMOGLOBIN 27.9 pg (27.0-33.0); MEAN CORPUSCULAR VOLUME 89.9 fL (79-99); MONOCYTES # (AUTO) 0.6 K/uL (0.1-1.0); MONOCYTES % (AUTO) 12.1 % (3.0-13.0); NEUTROPHILS # (AUTO) 2.5 K/uL (1.8-7.7); NEUTROPHILS % (AUTO) 54.8 % (40.0-77.0); PLATELET COUNT (AUTO) 181 K/uL (130-400); RED BLOOD CELL COUNT(AUTO) 2.98 MIL/uL (4.50-6.20); RED CELL DISTRIBUTION WIDTH 15.6 % (11.0-15.5); WHITE BLOOD COUNT (AUTO) 4.6 K/uL (4.8-10.8)
--- NOTE | 2024-09-29 06:28 | EKG ---
[facility] Test Date: 2024-09-28 Test Time: 22:45:10 Pat Name: MARY GILES Department: EDHIP Patient [place]: [facility] [id number] Room: 425 Gender: M Bill Of Lading Clerk: [id number] : [id number] Requested By: DIANA TRAN Order Number: [id number] Reading MD: Jaime Trotter Measurements Intervals [place] Rate: 57 P: 0 HI: 0 QRS: -10 QRSD: 88 T: 23 QT: 487 QTc: 476 Interpretive Statements Atrial fibrillation Electronically Signed On 09-30-2024 13:42:49 CDT by Jaime Trotter Please click the below link to view image of tracing.
[2024-09-29 06:48] LABS: PHOSPHORUS 3.8 mg/dL (2.5-4.9); POTASSIUM 3.6 mmol/L (3.5-5.1)
--- NOTE | 2024-09-29 07:05 | NUR ---
ASSUMED PATIENTS CARE.
[2024-09-29] MEDS: FAMOTIDINE 20MG TAB PO SCH (08:45)
[2024-09-29] MEDS: ASPIRIN 81 MG EC TAB PO SCH (08:46)
[2024-09-29] MEDS: furoSEMIDE 40MG VIAL IVP SCH (08:46)
[2024-09-29] MEDS: metoPROLOL tartRATE 25 MG TAB PO SCH (08:47)
[2024-09-29] MEDS: ENOXAPARIN SODIUM 40 MG/0.4 ML SYRINGE SQ SCH (08:48)
--- NOTE | 2024-09-29 09:00 | NUR ---
DID NOT GIVE METOPROLOL DUE TO PATIENT BEING BRADICARDIC, WITH A PULSE OF 54 P/MIN. PATIENT STATED HE IS NOT IN PAIN. DISCUSSED WITH PATIENT PLAN OF CARE, HOME MEDICATIONS, PAIN MANAGEMENT AND PROCEDURES. PATIENT VERBALIZED UNDERSTANDING.
--- NOTE | 2024-09-29 10:53 | NUR ---
DCP: HOME Pt is undocumented, states he and Heidi Dejesus [phone] are living with his daughter, in daughter's home. Pt states daughter provides care home and financial support. Pt is independent of self care and home management, drives and remains active he reports. Pt has no DME or in homecare services. Pt seen at [facility] for medical care and meds. Pt denies dc needs and will return to daughter's at dc Addendum: 09/29/24 at 1057 by JENYN ADAME Amended: Links added.
--- NOTE | 2024-09-29 11:32 | HMCIMG ---
PORTABLE CHEST RADIOGRAPH INDICATION: CHEST PAIN COMPARISON: None FINDINGS: night monitor leads overlie the field of view. Left sided dual chamber pacer and continuous leads remain in customary position. Heart size is normal. The pulmonary vascularity and cammy appear normal. No abnormal pulmonary parenchymal opacity or consolidation identified. No significant pleural effusion noted. No pneumothorax detected. IMPRESSION: No radiographic evidence for any acute cardiopulmonary process.
--- NOTE | 2024-09-29 14:20 | CONS ---
Cardiology Consult Note Cardiology Attending: Jaime Ruiz Consulting Physician: Danielist Date of Service: 09/29/24 Reason for Consult: Chest Pain HPI: This is a 54-year-old male with a past medical history of CAD status post PCI with KITTY placement ([employer]onic [place] 3.5 x 18 mm) to the proximal LAD, ([employer] [place] 3.0 x 18 mm) to the proximal RCA, ([employer] [place] 3.0 x 38 mm) to the mid to distal RCA on 04/12/2024, dilated cardiomyopathy, chronic systolic congestive heart failure (improved LVEF of 45- 50%), status post DC AICD placement done in 2018 (Biotronik), chronic atrial fibrillation, on anticoagulation, history of left atrial appendage thrombus, on anticoagulation, and HTN who presents after experiencing a single episode of chest pain. The event occurred yesterday evening, at approximately 6:00 p.m., while the patient was watching TV. The pain was described as squeezing in quality, 8/10 intensity, with radiation to the neck. The symptoms lasted approximately 30 minutes, and then resolved, without any specific treatment. Associated symptoms included diaphoresis. Pertinent negatives include headache, dizziness, syncope, palpitations, shortness for breath, abdominal pain, nausea, or vomiting. The symptoms scared the patient and prompted him to come to the emergency room for further evaluation and treatment. In the ED he has undergone serial cardiac enzyme testing, patient has thus far been negative: 8 > 6 > 6 > 6). Cardiology was consulted for treatment recommendations regarding his symptoms. PMH: Listed above PSH: Listed above FH: Significant for CAD, HTN, DMII, and CVA. SH: Denies alcohol, tobacco, or illicit drug use. Home medications: Farxiga 10 mg daily, atorvastatin 40 mg daily, Xarelto 20 mg daily, spironolactone 25 mg daily, losartan 25 mg daily, clopidogrel 75 mg daily, aspirin 81 mg daily, carvedilol 12.5 mg b.i.d., furosemide 20 mg daily Allergies: Coded Allergies: No Known Allergies (Unverified Allergy, Unknown, 09/25/17) morphine (Unverified Allergy, Unknown, DIZZINESS, 04/13/24) WORSING MY STATE OF HEALTH, AFTER TAKING IT FEELS WORSE THAN MY USUAL STATE Review of systems: General: Denies fever or chills HEENT: Denies changes in vision, earache or sore throat Neck: Denies pain or stiffness Cardio: As per the HPI Pulm: Denies SOB, coughing or wheezing GI: Denies abdominal pain, nausea, vomiting, diarrhea, or constipation. MSK: Denies muscle or back pain. Heme: Denies anemia, easy bruising, or bleeding. Neuro: Denies headache, dizziness, or syncope. Psych: Denies anxiety, depression, or suicide ideations. Physical Exam: Vital Signs Date Time Temp Pulse Resp B/P (MAP) Pulse Ox O2 Delivery O2 Flow Rate FiO2 09/29/24 12:00 98.1 65 15 114/80 100 Room Air* 0 21 General: Alert and oriented x 3. NAD HEENT: NC/AT. Oral mucosa is moist. Neck: No masses, JVD, or carotid bruits Lungs: NRD. SCM. B/L CTA. No wheezing, rales or rhonchi. Cardio: Rate @ 65bpm. Irregular rhythm. Abdomen: Soft. NT. ND. Normal active bowel sounds x 4 quadrants. Extremities: No edema, clubbing or cyanosis. Diminished pulses noted throughou t. Neuro: CN II-XII were grossly intact. No focal deficits. Labs: Laboratory Tests Test 09/28/24 22:59 09/28/24 23:16 09/29/24 00:44 09/29/24 00:55 Range/Units White Blood Count 5.1 4.8-10.8 K/uL Red Blood Count 3.27 L 4.50-6.20 MIL/uL Hemoglobin 9.1 L 14.0-18.0 g/dL Hematocrit 29.1 L 42-54 % Mean Corpuscular Volume 89.0 79-99 fL Mean Corpuscular Hemoglobin 27.8 27.0-33.0 pg Mean Corpuscular Hemoglobin Concent 31.3 L 32.0-36.0 g/dL Red Cell Distribution Width 15.7 H 11.0-15.5 % Platelet Count 196 130-400 K/uL Mean Platelet Volume 11.0 H 7.5-10.5 fL Immature Granulocyte % (Auto) 0.2 0-1 % Neutrophils (%) (Auto) 55.9 40.0-77.0 % Lymphocytes (%) (Auto) 29.5 21.0-51.0 % Monocytes (%) (Auto) 11.3 3.0-13.0 % Eosinophils (%) (Auto) 2.3 0.0-8.0 % Basophils (%) (Auto) 0.8 0.0-5.0 % Neutrophils # (Auto) 2.9 1.8-7.7 K/uL Lymphocytes # (Auto) 1.5 1.0-4.8 K/uL Monocytes # (Auto) 0.6 0.1-1.0 K/uL Eosinophils # (Auto) 0.12 0.00-0.70 K/uL Basophils # (Auto) 0.04 0.00-0.20 K/uL Absolute Immature Granulocyte (auto 0.01 0-1 K/uL Nucleated Red Blood Cells 0.0 0.0-0.19 % Sodium Level 133 L 136-145 mmol/L Potassium Level 3.8 3.5-5.1 mmol/L Chloride Level 100 L 101-111 mmol/L Carbon Dioxide Level 25 21-32 mmol/L Blood Urea Nitrogen 21 H 7-18 mg/dL Creatinine 1.3 0.5-1.3 mg/dL Glomerular Filtration Rate Calc 65 >90 mL/min Random Glucose 112 H 70-105 mg/dL Total Calcium 8.3 L 8.5-10.1 mg/dL Total Creatine Kinase 216 # 21-232 U/L Troponin I High Sensitivity 8 6 4-75 ng/L B-Type Natriuretic Peptide 140 H 0-100 pg/mL Influenza Type A Antigen Negative For Type A NEGATIVE Influenza Type B Antigen Negative For Type B NEGATIVE SARS-CoV-2, RNA, NAAT NEGATIVE SARS CoV-2 NEGATIVE Group A Streptococcus Rapid negative NEGATIVE Urine Color LIGHT-YELLOW YELLOW Urine Appearance CLEAR CLEAR Urine pH 6.5 5.0-8.0 Urine Specific [place] 1.030 1.001-1.031 Urine Protein NEGATIVE NEGATIVE mg/dL Urine Glucose (UA) >=1000 H NEGATIVE mg/dL Urine Ketones NEGATIVE NEGATIVE mg/dL Urine Occult Blood NEGATIVE NEGATIVE Urine Nitrate NEGATIVE NEGATIVE Urine Bilirubin NEGATIVE NEGATIVE mg/dL Urine Urobilinogen 0.2 0.2-1.0 mg/dL Urine Leukocyte Esterase NEGATIVE NEGATIVE Mery/uL Urine RBC 2-5 H 0-1 /HPF Urine WBC 0-1 0-1 /HPF Urine Bacteria None None Seen /HPF Urine Opiates Screen NEGATIVE NEGATIVE Urine Barbiturates Screen NEGATIVE NEGATIVE Urine Phencyclidine Screen NEGATIVE NEGATIVE Urine Amphetamines Screen NEGATIVE NEGATIVE Urine Benzodiazepines Screen NEGATIVE NEGATIVE Urine Cocaine Screen NEGATIVE NEGATIVE Urine Marijuana (THC) Screen NEGATIVE NEGATIVE Test 09/29/24 05:52 09/29/24 11:22 Range/Units White Blood Count 4.6 L 4.8-10.8 K/uL Red Blood Count 2.98 L 4.50-6.20 MIL/uL Hemoglobin 8.3 L 14.0-18.0 g/dL Hematocrit 26.8 L 42-54 % Mean Corpuscular Volume 89.9 79-99 fL Mean Corpuscular Hemoglobin 27.9 27.0-33.0 pg Mean Corpuscular Hemoglobin Concent 31.0 L 32.0-36.0 g/dL Red Cell Distribution Width 15.6 H 11.0-15.5 % Platelet Count 181 130-400 K/uL Mean Platelet Volume 10.2 7.5-10.5 fL Immature Granulocyte % (Auto) 0.2 0-1 % Neutrophils (%) (Auto) 54.8 40.0-77.0 % Lymphocytes (%) (Auto) 29.7 21.0-51.0 % Monocytes (%) (Auto) 12.1 3.0-13.0 % Eosinophils (%) (Auto) 2.8 0.0-8.0 % Basophils (%) (Auto) 0.4 0.0-5.0 % Neutrophils # (Auto) 2.5 1.8-7.7 K/uL Lymphocytes # (Auto) 1.4 1.0-4.8 K/uL Monocytes # (Auto) 0.6 0.1-1.0 K/uL Eosinophils # (Auto) 0.13 0.00-0.70 K/uL Basophils # (Auto) 0.02 0.00-0.20 K/uL Absolute Immature Granulocyte (auto 0.01 0-1 K/uL Nucleated Red Blood Cells 0.0 0.0-0.19 % Red Blood Cell Morphology See comments Sodium Level 138 136-145 mmol/L Potassium Level 3.6 3.5-5.1 mmol/L Chloride Level 106 101-111 mmol/L Carbon Dioxide Level 22 21-32 mmol/L Blood Urea Nitrogen 25 H 7-18 mg/dL Creatinine 1.0 0.5-1.3 mg/dL Glomerular Filtration Rate Calc 89 >90 mL/min Random Glucose 96 70-105 mg/dL Total Calcium 8.1 L 8.5-10.1 mg/dL Phosphorus Level 3.8 2.5-4.9 mg/dL Magnesium Level 2.00 1.80-2.40 mg/dL Troponin I High Sensitivity 6 6 4-75 ng/L ECG 09/28/2024: Atrial fibrillation with a controlled ventricular response. No ST elevation or depression noted. Assessment: 1. Chest pain 2. CAD status post PCI with KITTY placement ([employer] [place] 3.5 x 18 mm) to the proximal LAD, ([employer] [place] 3.0 x 18 mm) to the proximal RCA, ([employer] [place] 3.0 x 38 mm) to the mid to distal RCA on 04/12/2024 3. Dilated cardiomyopathy 4. Chronic systolic congestive heart failure (improved LVEF of 45-50%), status post DC AICD placement done in 2018 (Biotronik) 5. Chronic atrial fibrillation, on anticoagulation 6. HTN Plan: 1. Chest pain -stable -ECG 09/28/2024: Atrial fibrillation with a controlled ventricular response. No ST elevation or depression noted. -laboratory data: High sensitivity troponin I: 8 > 6 > 6 > 6 -the patient presents after experiencing a single episode of chest pain. The event occurred yesterday afternoon, at approximately 6:00 p.m.. The pain was described as squeezing quality, 8/10 intensity, with radiation to the neck. The symptoms lasted approximately 15 minutes, resolved without any specific treatment. -the patient's symptoms are atypical, but considering his past medical history, specifically his history of CAD status post PCI with KITTY placement to the LAD and RCA done in March of 2024, recurrent CAD, remains in the top of our differential list. In order to further evaluate this issue we will refer the patient for a Lexiscan stress test. In order to address his symptoms/prevented from redeveloping, we will start the patient on isosorbide mononitrate ER 30 mg daily. The patient will continue on aspirin 81 mg daily, clopidogrel 75 mg daily, atorvastatin 40 mg q.h.s. we will hold the patient's home regimen of carvedilol because of slow resting heart rates. 2. Chronic systolic congestive heart failure (improved LVEF of 45-50%), status post DC AICD placement done in 2018 -stable -the patient denies any shortness for breath, dyspnea with exertion, PND, or orthopnea -the above-mentioned findings indicate clinical stability, as a result the patient will continue on losartan 25 mg daily, spironolactone 25 mg daily, and furosemide 20 mg daily. We will hold the patient's home regimen of carvedilol because of slow resting heart rates. 3. Chronic atrial fibrillation -substrate: Dilated atrium -currently stable, asymptomatic, and a slow ventricular response with a heart rate of 54 beats per minute -recommend holding patient's home regimen of carvedilol 12.5 mg BID. -recommend stopping Xarelto and starting the patient on full-dose anticoagulation with Lovenox 1mg/kg sq BID until the patient completes workup to address his underlying chest pain. Thank you for this interesting consult and allowing us to participate in the care of your patient. Further recommendations to follow. JAIME RUIZ MD Sep 29, 2024 14:20
[2024-09-29] MEDS: ISOSORBIDE MONO 30MG SR TAB PO SCH (15:51)
[2024-09-29] MEDS: acetaMINOPHEN 325 MG TAB PO PRN (15:57)
--- NOTE | 2024-09-29 16:00 | NUR ---
EDUCATED PATIENT ON NEW MEDICATION IMDUR. PATIENT VERBALIZED UNDERSTANDING.
[2024-09-29 16:57] VITALS: TEMP 98.1
[2024-09-29] MEDS: ENOXAPARIN SODIUM 80 MG/0.8 ML SQ SCH (20:38)
[2024-09-29] MEDS ORDERED: carVEDIlol 6.25 MG TABLET PO SCH (21:00)
[2024-09-29 22:05] VITALS: BP 134/79; PULSE 66; RESP 19; TEMP 97.6
[2024-09-29 22:31] VITALS: O2SAT 99
[2024-09-30] VITALS (7 sets, daily range): BP systolic 101–126; BP diastolic 68–77; PULSE 61–87; RESP 17–20; TEMP 97.5–98.1; O2SAT 99
[2024-09-30 05:26] LABS: BASOPHILS # (AUTO) 0.05 K/uL (0.00-0.20); EOSINOPHILS # (AUTO) 0.09 K/uL (0.00-0.70); EOSINOPHILS % (AUTO) 1.8 % (0.0-8.0); HEMATOCRIT 29.8 % (42-54); IMMATURE GRANULOCYTE ABSOLUTE 0.02 K/uL (0-1); LYMPHOCYTES # (AUTO) 1.3 K/uL (1.0-4.8); LYMPHOCYTES % (AUTO) 26.9 % (21.0-51.0); MEAN CORPUSCULAR HEMOGLOBIN 27.2 pg (27.0-33.0); MEAN CORPUSCULAR HGB CONC 30.9 g/dL (32.0-36.0); MEAN CORPUSCULAR VOLUME 88.2 fL (79-99); MONOCYTES # (AUTO) 0.5 K/uL (0.1-1.0); MONOCYTES % (AUTO) 10.2 % (3.0-13.0); NEUTROPHILS # (AUTO) 2.9 K/uL (1.8-7.7); NEUTROPHILS % (AUTO) 59.7 % (40.0-77.0); PLATELET COUNT (AUTO) 222 K/uL (130-400); RED BLOOD CELL COUNT(AUTO) 3.38 MIL/uL (4.50-6.20); RED CELL DISTRIBUTION WIDTH 15.6 % (11.0-15.5); WHITE BLOOD COUNT (AUTO) 4.9 K/uL (4.8-10.8)
[2024-09-30 05:41] LABS: CREATININE 1.1 mg/dL (0.5-1.3); PHOSPHORUS 3.5 mg/dL (2.5-4.9); POTASSIUM 3.6 mmol/L (3.5-5.1)
[2024-09-30] MEDS ORDERED: REGADENOSON 0.4 MG/5 ML PF SYG IVP ONE (08:02)
[2024-09-30] MEDS ORDERED: RIVAROXABAN 20 MG TABLET PO SCH (09:00)
[2024-09-30] MEDS: furoSEMIDE 20 MG TABLET PO SCH (09:36)
[2024-09-30] MEDS: LoSARTan 25 MG TABLET PO SCH (09:36)
[2024-09-30] MEDS: atorVAStatin 40 MG TABLET PO SCH (09:36)
[2024-09-30] MEDS: cloPIDOgrel 75MG TAB PO SCH (09:36)
[2024-09-30] MEDS: SPIRONOLACTONE 25 MG TAB PO SCH (09:37)
[2024-09-30] MEDS: PoTASSium chloRIDE 20MEQ ER 20 MEQ ERTAB PO ONE (09:38)
[2024-09-30] MEDS ORDERED: PoTASSium chl 10% ELIXIR 20MEQ 20 MEQ/15 ML UDCUP PO PRN (10:00)
[2024-09-30] MEDS ORDERED: PoTASSium chloRIDE 20MEQ/100ML 100 ML IV PRN (10:00)
--- NOTE | 2024-09-30 12:19 | HMCSR ---
APPROVED REPORT Height: 5 ft 5in Weight: 179 lbs TEST INDICATIONS Chest Pain The imaging protocol used to acquire images was Rest Tc-99m/stress Tc-99m 1 day Consent: The procedure was explained and understood by the patient. Informerd consent was witnessed Carlyle Berman RN First, low dose rest was performed then high dose stress. RESTING DATA: The resting ekg shows: NSR Rest SPECT myocardial perfusion imaging was performed in supine position minutes following the intra venous injection of 11 mCi of Tc-99 Sestamibi. Time of rest injection: Date: 09/30/2024 Time of rest imaging: Date: 09/30/2024 PHARMACOLOGIC STRESS: Pharmacologic stress test was performed by injecting regadenoson 0.4 mg IV push followed by the intra venous injection of 30 mCi of Tc-99 Sestamibi. Time of stress injection: Date: 09/30/2024 Time of stress imaging: Date: 09/30/2024 Heart Rate at time of stress injection: 57 bpm. The images were gated to evaluate regional wall motion and calculate left ventricular ejection fracti on. STRESS DETAILS Reason for Termination: Infusion complete Stress Symptoms: No chest pain or symptoms Max HR Achieved: 97 bpm % of APMHR Achieved: 68 Max Blood Pressure: 140/65 mmHg Stress ECG: NSR Conclusion No ischemia No infarct LV ejection fraction 67% Normal LV wall motion Normal LV size at rest and stress No increased lung uptake RV not visualized
--- NOTE | 2024-09-30 13:38 | NUR ---
[employer] C[employer] SERVICE WAS NOTIFIED FOR PACEMAKER INTERROGATION
[2024-09-30] MEDS: metOPROLol sucCINATE 25 MG TAB.SR.24H PO SCH (15:23)
--- NOTE | 2024-09-30 16:54 | PN ---
[facility] PROGRESS NOTE Date of Service: Sep 30, 2024 Time of Service: 16:49 SUBJECTIVE: 09/30 Pt seen at bedside, no acute events overnight. Stress test pending today, will follow up with cardiology recommendations, pacemaker interrogation pending. Hgb improved from 8.3 up to 9.2, remainder of his labs are relatively unremarkable REVIEW OF SYSTEMS 12 point ROS negative unless noted in HPI PHYSICAL EXAM GENERAL APPEARANCE: The patient is awake, alert, and oriented, in no acute cardiopulmonary distress. NEUROLOGICAL: Cranial nerves II-XII grossly intact. Motor is 5/5 in bilateral upper and lower extremities proximal to distal. No sensory deficits. HEENT: Face is symmetric. Pupils are equal and reactive. Extraocular movements are intact. NECK: Supple. No JVD. No thyromegaly. No submental, submandibular, pre-/po stauricular, occipital or supraclavicular lymphadenopathy. CHEST: Normal chest expansion. No Telemetry. LUNGS: Absence of any rales, rhonchi or any wheezing. CARDIOVASCULAR: Regular. S1 and S2 normal. No appreciable rubs, murmurs or gallops. ABDOMEN: Soft, nontender, and nondistended. There is no rebound, voluntary guarding, or rigidity. : Deferred. No Mtz. EXTREMITIES: Non-edematous and not cyanotic. No clubbing. Good capillary refill. SKIN: No skin breakdown. Vital Signs (last 8hr) Date Time Temp Pulse Resp B/P (MAP) Pulse Ox O2 Delivery O2 Flow Rate FiO2 09/30/24 12:00 97.5 87 18 110/68 99 Room Air LABS: Laboratory: Test 09/30/24 05:04 09/29/24 17:34 09/29/24 05:52 09/29/24 00:44 Range/Units White Blood Count 4.9 4.8-10.8 K/uL Red Blood Count 3.38 L 4.50-6.20 MIL/uL Hemoglobin 9.2 L 14.0-18.0 g/dL Hematocrit 29.8 L 42-54 % Mean Corpuscular Volume 88.2 79-99 fL Mean Corpuscular Hemoglobin 27.2 27.0-33.0 pg Mean Corpuscular Hemoglobin Concent 30.9 L 32.0-36.0 g/dL Red Cell Distribution Width 15.6 H 11.0-15.5 % Platelet Count 222 130-400 K/uL Mean Platelet Volume 10.4 7.5-10.5 fL Immature Granulocyte % (Auto) 0.4 0-1 % Neutrophils (%) (Auto) 59.7 40.0-77.0 % Lymphocytes (%) (Auto) 26.9 21.0-51.0 % Monocytes (%) (Auto) 10.2 3.0-13.0 % Eosinophils (%) (Auto) 1.8 0.0-8.0 % Basophils (%) (Auto) 1.0 0.0-5.0 % Neutrophils # (Auto) 2.9 1.8-7.7 K/uL Lymphocytes # (Auto) 1.3 1.0-4.8 K/uL Monocytes # (Auto) 0.5 0.1-1.0 K/uL Eosinophils # (Auto) 0.09 0.00-0.70 K/uL Basophils # (Auto) 0.05 0.00-0.20 K/uL Absolute Immature Granulocyte (auto 0.02 0-1 K/uL Nucleated Red Blood Cells 0.0 0.0-0.19 % Sodium Level 138 136-145 mmol/L Potassium Level 3.6 3.5-5.1 mmol/L Chloride Level 104 101-111 mmol/L Carbon Dioxide Level 24 21-32 mmol/L Blood Urea Nitrogen 22 H 7-18 mg/dL Creatinine 1.1 0.5-1.3 mg/dL Glomerular Filtration Rate Calc 80 >90 mL/min Random Glucose 99 70-105 mg/dL Total Calcium 8.8 8.5-10.1 mg/dL Phosphorus Level 3.5 2.5-4.9 mg/dL Magnesium Level 2.00 1.80-2.40 mg/dL Troponin I High Sensitivity 6 4-75 ng/L Red Blood Cell Morphology See comments Urine Color LIGHT-YELLOW YELLOW Urine Appearance CLEAR CLEAR Urine pH 6.5 5.0-8.0 Urine Specific [place] 1.030 1.001-1.031 Urine Protein NEGATIVE NEGATIVE mg/dL Urine Glucose (UA) >=1000 H NEGATIVE mg/dL Urine Ketones NEGATIVE NEGATIVE mg/dL Urine Occult Blood NEGATIVE NEGATIVE Urine Nitrate NEGATIVE NEGATIVE Urine Bilirubin NEGATIVE NEGATIVE mg/dL Urine Urobilinogen 0.2 0.2-1.0 mg/dL Urine Leukocyte Esterase NEGATIVE NEGATIVE Mery/uL Urine RBC 2-5 H 0-1 /HPF Urine WBC 0-1 0-1 /HPF Urine Bacteria None None Seen /HPF Urine Opiates Screen NEGATIVE NEGATIVE Urine Barbiturates Screen NEGATIVE NEGATIVE Urine Phencyclidine Screen NEGATIVE NEGATIVE Urine Amphetamines Screen NEGATIVE NEGATIVE Urine Benzodiazepines Screen NEGATIVE NEGATIVE Urine Cocaine Screen NEGATIVE NEGATIVE Urine Marijuana (THC) Screen NEGATIVE NEGATIVE Test 09/28/24 23:16 09/28/24 22:59 Range/Units Influenza Type A Antigen Negative For Type A NEGATIVE Influenza Type B Antigen Negative For Type B NEGATIVE SARS-CoV-2, RNA, NAAT NEGATIVE SARS CoV-2 NEGATIVE Group A Streptococcus Rapid negative NEGATIVE Total Creatine Kinase 216 # 21-232 U/L B-Type Natriuretic Peptide 140 H 0-100 pg/mL Current Medications Medications (Trade) Dose Ordered Sig/Teodoro Route PRN Reason Start Time Stop Time Status Last Admin Dose Admin Acetaminophen (TYLenol 325MG TAB) 650 mg Q6H PRN PO TEMPERATURE GREATER THAN 101.5 09/29/24 01:00 10/29/24 00:59 09/29/24 15:57 650 MG Aspirin (Aspirin 81mg Ec Tab) 81 mg DAILY PO 09/29/24 09:00 09/30/24 16:39 DC 09/30/24 09:37 81 MG Atorvastatin Calcium (LIPItor 40MG) 40 mg DAILY PO 09/30/24 09:00 10/30/24 08:59 09/30/24 09:36 40 MG Carvedilol (Coreg 6.25MG) 6.25 mg BID PO 09/29/24 21:00 09/29/24 09:51 DC Clopidogrel Bisulfate (plaVIX 75MG) 75 mg DAILY PO 09/30/24 09:00 10/30/24 08:59 09/30/24 09:36 75 MG Enoxaparin Sodium (Lovenox 80mg) 80 mg BID SQ 09/29/24 21:00 09/30/24 16:39 DC 09/30/24 09:38 80 MG Enoxaparin Sodium (Lovenox) 40 mg DAILY SQ 09/29/24 09:00 09/29/24 09:52 DC 09/29/24 08:48 40 MG Famotidine (Pepcid 20mg Tab) 20 mg DAILY PO 09/29/24 09:00 10/29/24 08:59 09/30/24 09:37 20 MG Furosemide (LASix 20MG TAB) 20 mg DAILY PO 09/30/24 09:00 10/30/24 08:59 09/30/24 09:36 20 MG Furosemide (LASix 40MG VIAL) 20 mg BID IVP 09/29/24 09:00 09/29/24 09:51 DC 09/29/24 08:46 20 MG Hydralazine HCl (APRESOLine 20MG INJ) 10 mg Q6H PRN IV For:SBP above 160;DBP above 90 09/29/24 01:00 10/29/24 00:59 Isosorbide Mononitrate (Imdur 30mg Sr) 30 mg DAILY PO 09/29/24 14:30 10/29/24 14:29 09/30/24 09:36 30 MG Losartan Potassium (CozAAR 25MG TAB) 25 mg DAILY PO 09/30/24 09:00 10/30/24 08:59 09/30/24 09:36 25 MG Metoprolol Succinate (TopROL XL) 25 mg DAILY PO 09/30/24 14:30 10/30/24 14:29 09/30/24 15:23 25 MG Metoprolol Tartrate (loprESSOR) 5 mg Q5M PRN IV AFIB RVR; HR>120BPM 09/29/24 01:00 09/29/24 09:54 DC Metoprolol Tartrate (loprESSOR) 12.5 mg BID PO 09/29/24 09:00 09/29/24 14:14 DC Nitroglycerin (Nitroglycerin 1gm Oint) 0.5 inch Q8H TD 09/29/24 01:00 09/30/24 09:29 DC 09/30/24 00:53 0.5 INCH Ondansetron HCl (zoFRAN 4MG INJ) 4 mg Q6H PRN IV NAUSEA/VOMITING 09/29/24 01:00 10/29/24 00:59 Pharmacy Profile Note (Pharmacy Communication) 1 each ONCE MISC 09/29/24 01:00 09/29/24 00:53 DC Potassium Chloride 100 ml @ 100 mls/hr AD PRN IV POTASSIUM PROTOCOL 09/30/24 10:00 10/30/24 09:59 Potassium Chloride (K-Dur/Klor-Con 20meq) 20 meq AD PRN PO POTASSIUM PROTOCOL 09/30/24 10:00 10/30/24 09:59 Potassium Chloride (KCl 10% Elixir 20meq/15ml) 20 meq AD PRN PO POTASSIUM PROTOCOL 09/30/24 10:00 10/30/24 09:59 Rivaroxaban (Xarelto) 20 mg DAILY PO 09/30/24 09:00 09/29/24 14:12 DC Rivaroxaban (Xarelto) 20 mg DAILYDINNER PO 09/30/24 17:00 10/30/24 16:59 UNV Spironolactone (Aldactone 25mg) 25 mg DAILY PO 09/30/24 09:00 10/30/24 08:59 09/30/24 09:37 25 MG DIAGNOSTICS / RADIOLOGY: [ ] ASSESSMENT: Chest pain CAD status post PCI with KITTY placement (Medtronic mehreen [place] 3.5 x 18 mm) to the proximal LAD, (Medtronic mehreen [place] 3.0 x 18 mm) to the proximal RCA, (Medtronic mehreen [place] 3.0 x 38 mm) to the mid to distal RCA on 04/12/2024 Dilated cardiomyopathy Chronic systolic congestive heart failure (improved LVEF of 45-50%), status post DC AICD placement done in 2018 (Biotronik) Chronic atrial fibrillation, on anticoagulation HTN Dyslipidemia PLAN: - Stress test pending, will follow up - Pacemaker interrogation pending, will follow up - Continue xarelto 20mg q24h - Continue metoprolol 25mg q24h - Continue spironolactone 25mg q24h - Continue losartan 25mg q24h - Continue furosemide 20mg q24h - Continue plavix 75mg q24h - Continue atorvastatin 40mg q24h - Continue isosorbide mononitrate 30mg q24h Disposition: Pending stress test and pacemaker interrogation TIGRE NORWOOD MD Sep 30, 2024 16:54
--- NOTE | 2024-09-30 17:02 | PN ---
Cardiology Progress Note Date of Service: 09/30/2024 Attending Fry Cook: Dr. Jaime Ruiz Primary Fry Cook: Dr. Basil Mendoza Reason for Consult: Chest pain Subjective: -Chest pain -Normal Lexiscan stress test done on 09/30/2024 -Permanent atrial fibrillation -CAD s/p PCI with balloon lithotripsy and KTITY placement (MOF3.5x18 mm) in the proximal LAD and balloon lithotripsy and overlapping KITTY placement (MOF3.0x18 mm and MOF 3.0x38 mm) in the [id number] RCA done on 04/12/[address] Mendoza -HFEF (LVEF: 45-50%) -HTN -HLP -h/o YARY thrombus -Dilated CM s/p ICD -Hypochromic anemia Subjective: This is a 54y/o male who was seen and evaluated at the bedside today. The patient complains of palpitations with associated anxiety, but denies any recurrent chest pain, chest pressure, or shortness of breath. He underwent a Lexiscan stress test early today which ruled out any ischemia or infarction. Vitals/Labs Vital Signs Date Time Temp Pulse Resp B/P (MAP) Pulse Ox O2 Delivery O2 Flow Rate FiO2 09/30/24 12:00 97.5 87 18 110/68 99 Room Air 09/30/24 07:15 0 21 General: Awake and alert. No acute distress. Chronically ill appearing. HEENT: Normocephalic, atraumatic. EOMI. Oral mucosa was moist. Neck: No masses, JVD, or carotid bruits. Lungs: No respiratory distress. SCM. Bilateral air entry. Clear to auscultation bilaterally. Cardio: Regular rate, irregular rhythm. Abdomen: Soft, nontender, nondistended. No organomegaly. Normoactive bowel sounds x 4 quadrants. Extremities. No edema, clubbing, or cyanosis. +2 pulses noted throughout. Neuro: Cranial nerves II through XII are grossly intact. No focal deficits identified. Laboratory Tests 09/30/24 05:04 Assessment: -Chest pain -Normal Lexiscan stress test done on 09/30/2024 -Permanent atrial fibrillation -CAD s/p PCI with balloon lithotripsy and KITTY placement (MOF3.5x18 mm) in the proximal LAD and balloon lithotripsy and overlapping KITTY placement (MOF3.0x18 mm and MOF 3.0x38 mm) in the [id number] RCA done on 04/12/[address] 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 Chest pain -Stable -Cardiac enzymes- HS troponin I: 8>6>6>6>6 -Lexiscan stress test 09/30/2024: Normal Lexiscan stress test. No areas of ischemia or infarction noted. LV systolic function is normal with a post stress LVEF of 67%. The LV is normal in size at rest and stress with normal wall motion. -The etiology behind the patient's presenting symptoms remains unknown, but ACS or obstructive CAD has been ruled out via the above mentioned studies. As a result, we do not recommend any further ischemic cardiac workup. -Instead, we will stop aspirin and the patient will continue on clopidogrel 75 mg daily, metoprolol succinate 25 mg daily, isosorbide mononitrate ER 30 mg daily, and atorvastatin 40 mg QHS. 2. Permanent atrial fibrillation -Substrate: LAD -12H telemetry: Atrial fibrillation, HR range: 65-85 bpm -Currently stable, asymptomatic, and in a controlled ventricular response -We will start the patient on metoprolol succinate 25 mg daily. -CHADS2 VASc score: 5 points. We will transition the patient from full dose Lovenox back to oral anticoagulation with Xarelto 20 mg daily. 3. 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 The patient can be discharged from a Cardiac Standpoint. Please have the patient follow up with Cardiology, Dr. Basil Mendoza, 1-2 weeks after discharge. This case was discussed with my Supervising Physician, Dr. Jaime Ruiz, and the above mentioned plan was formulated and agreed upon. -Progress Note written by Fatemeh Garcia, MSN, REFINERY OPERATOR [employer], AGACNP-BC FATEMEH GARCIA NP Sep 30, 2024 17:02
[2024-09-30] MEDS: RIVAROXABAN 20 MG TABLET PO SCH (20:50)
[2024-10-01] VITALS: BP 96/61; PULSE 59; RESP 16; TEMP 98.2
[2024-10-01 03:55] LABS: BASOPHILS # (AUTO) 0.05 K/uL (0.00-0.20); BASOPHILS % (AUTO) 0.9 % (0.0-5.0); EOSINOPHILS # (AUTO) 0.12 K/uL (0.00-0.70); EOSINOPHILS % (AUTO) 2.1 % (0.0-8.0); HEMATOCRIT 31.2 % (42-54); IMMATURE GRANULOCYTE ABSOLUTE 0.01 K/uL (0-1); LYMPHOCYTES # (AUTO) 2.1 K/uL (1.0-4.8); LYMPHOCYTES % (AUTO) 36.5 % (21.0-51.0); MEAN CORPUSCULAR HEMOGLOBIN 27.3 pg (27.0-33.0); MEAN CORPUSCULAR HGB CONC 30.4 g/dL (32.0-36.0); MEAN CORPUSCULAR VOLUME 89.7 fL (79-99); MONOCYTES # (AUTO) 0.8 K/uL (0.1-1.0); MONOCYTES % (AUTO) 14.4 % (3.0-13.0); NEUTROPHILS # (AUTO) 2.7 K/uL (1.8-7.7); NEUTROPHILS % (AUTO) 45.9 % (40.0-77.0); PLATELET COUNT (AUTO) 214 K/uL (130-400); RED BLOOD CELL COUNT(AUTO) 3.48 MIL/uL (4.50-6.20); RED CELL DISTRIBUTION WIDTH 15.8 % (11.0-15.5); WHITE BLOOD COUNT (AUTO) 5.8 K/uL (4.8-10.8)
[2024-10-01 04:00] VITALS: BP 99/62; PULSE 67; RESP 19; TEMP 98.2
[2024-10-01 04:05] LABS: CREATININE 1.1 mg/dL (0.5-1.3); POTASSIUM 3.5 mmol/L (3.5-5.1)
[2024-10-01] MEDS: PoTASSium chloRIDE 20MEQ ER 20 MEQ ERTAB PO PRN (06:44)
[2024-10-01 08:00] VITALS: BP 109/70; PULSE 74; RESP 20; TEMP 97.8
[2024-10-01 09:39] VITALS: O2SAT 98
[2024-10-01 11:59] VITALS: BP 98/52; PULSE 61; RESP 20; TEMP 98
[2024-10-01] MEDS ORDERED: ISOS30TA92 PO (13:05)
[2024-10-01] MEDS ORDERED: METO25TA3 PO (13:05)
--- NOTE | 2024-10-01 16:35 | NUR ---
Discharge Family collects and bags all [id number]. Discharge instructions are given and explained to the patient. PIV is removed. The patient is then taken downstairs in a wheelchair and he leaves the facility by personal vehicles.
--- NOTE | 2024-10-01 17:02 | DS ---
Discharge Summary Hospital Course Summary: 54-year-old male that was seen and examined today on 09/29/2024. Patient is a good historian of personal health. Patient states that he came to the emergency department with a chief complaint of chest pain. Onset was 09/28/2024 at 6:00 p.m.. Location is midsternal. Duration is on and off. Patient reports three episodes. Each episode lasted about 1 minute. Character pain is described as pressure. Pain radiates to anterior neck. Patient denies any aggravating factors. Patient denies any alleviating factors. Patient denies any associated shortness of breath. She was admitted and cardiology was consulted. A lexiscan stress test was ordered that showed normal perfusion. Cardiology adjusted his medications and he was cleared for discharge back home to follow up with cardiology. . Roll On Man(s): Cardiology Procedure(s): Lexiscan Stress Test Conclusion No ischemia No infarct LV ejection fraction 67% Normal LV wall motion Normal LV size at rest and stress No increased lung uptake RV not visualized PORTABLE CHEST RADIOGRAPH INDICATION: CHEST PAIN COMPARISON: None FINDINGS: monitoring and evaluation advisor leads overlie the field of view. Left sided dual chamber pacer and continuous leads remain in customary position. Heart size is normal. The pulmonary vascularity and cammy appear normal. No abnormal pulmonary parenchymal opacity or consolidation identified. No significant pleural effusion noted. No pneumothorax detected. IMPRESSION: No radiographic evidence for any acute cardiopulmonary process. Assessment/Plan: Chest pain, resolved, ACS ruled out CAD status post PCI with KITTY placement (Medtronic mehreen [place] 3.5 x 18 mm) to the proximal LAD, (Medtronic mehreen [place] 3.0 x 18 mm) to the proximal RCA, (Medtronic mehreen [place] 3.0 x 38 mm) to the mid to distal RCA on 04/12/2024 Dilated cardiomyopathy Chronic systolic congestive heart failure (improved LVEF of 45-50%), status post DC AICD placement done in 2018 (Biotronik) Chronic atrial fibrillation, on anticoagulation HTN Dyslipidemia Discharge Instructions: Follow up with PCP in 3-7 days Follow up with laminating machine operator in 1-2 weeks Home Medications: Active Scripts Metoprolol Succinate (Toprol Xl) 25 Mg Tab.er.24h, 25 MG PO DAILY, #30 TAB Prov:TIGRE NORWOOD MD 10/01/24 Isosorbide Mononitrate (Isosorbide Mononitrate ER) 30 Mg Tab.er.24h, 1 TAB PO DAILY for 30 Days, #30 TAB 0 Refills Prov:TIGRE NORWOOD MD 10/01/24 Clopidogrel Bisulfate (Plavix) 75 Mg Tablet, 75 MG PO DAILY, #30 TAB 0 Refills Prov:WILL ANDRE 04/13/24 Carvedilol (Carvedilol) 12.5 Mg Tablet, 12.5 MG PO BID, #60 TAB 0 Refills Prov:WILL ANDRESORAYA 04/13/24 [doCUSate SODIUM 100 MG CAP] 100 MG CAPSULE No Conflict Check, 100 MG PO BID PRN for c, #60 0 Refills Prov:WILL ANDRE 04/13/24 Gabapentin (Gabapentin) 100 Mg Capsule, 100 MG PO DAILY PRN for daily for 5 Days, #5 CAP Prov:HECTOR MELTON MD 02/08/24 Reported Medications Atorvastatin Calcium (Atorvastatin Calcium) 40 Mg Tablet, 1 TAB PO DAILY for 30 Days, #30 TAB 0 Refills 09/29/24 Dapagliflozin Propanediol (Farxiga) 10 Mg Tablet, 1 TAB PO DAILY for 30 Days, #30 TAB 0 Refills 09/29/24 Pantoprazole Sodium (Pantoprazole Sodium) 40 Mg Tablet.dr, 1 TAB PO DAILY for 30 Days, #30 TAB 0 Refills 09/29/24 Hydroxyzine HCl (Hydroxyzine HCl) 25 Mg Tablet, 25 MG PO BID PRN for ANXIETY/AGITATION, TAB 04/09/24 Cetirizine HCl (Cetirizine HCl) 10 Mg Tablet, 10 MG PO DAILY, TAB 04/09/24 Spironolactone (Spironolactone) 25 Mg Tablet, 25 MG PO DAILY, TAB 01/29/24 Losartan Potassium (Losartan Potassium) 25 Mg Tablet, 25 MG PO DAILY, TAB 01/29/24 Furosemide (Furosemide) 20 Mg Tablet, 20 MG PO DAILY, TAB 01/29/24 Rivaroxaban (Xarelto) 20 Mg Tablet, 20 MG PO HS, TAB 01/29/24 Discontinued Reported Medications Rivaroxaban (Xarelto) 20 Mg Tablet, 20 MG PO DAILY, TAB 12/02/20 Amiodarone HCl (Amiodarone HCl) 200 Mg Tablet, 200 MG PO DAILY, TAB 12/02/20 Carvedilol (Carvedilol) 6.25 Mg Tablet, 6.25 MG PO BID, TAB 12/02/20 Losartan Potassium (Losartan Potassium) 25 Mg Tablet, 25 MG PO DAILY, TAB 12/02/20 Furosemide (Furosemide) 20 Mg Tablet, 20 MG PO DAILY, TAB 12/02/20 Discontinued Scripts Clindamycin HCl (Clindamycin HCl) 300 Mg Capsule, 1 CAP PO QID for 7 Days, #28 CAP 0 Refills Prov:MICHELLE GARCIA 07/13/24 Sucralfate (Carafate) 1 Gm Tablet, 1 GM PO ACHS, #60 TAB 0 Refills Prov:JOHN VARGAS MD 12/08/20 Spironolactone (Aldactone) 25 Mg Tablet, 25 MG PO DAILY, #30 TAB 0 Refills Prov:JOHN VARGAS MD 12/08/20 Pantoprazole Sodium (Protonix) 40 Mg Tablet.dr, 40 MG PO BIDAC for 30 Days, #60 TAB 0 Refills Prov:JOHN VARGAS MD 12/08/20 Losartan Potassium (Cozaar) 50 Mg Tablet, 25 MG PO DAILY for 30 Days, #30 TAB Prov:VIRGINIA REILLY MD 09/11/17 Rivaroxaban (Xarelto) 20 Mg Tablet, 20 MG PO DAILY for 30 Days, #30 TAB Prov:VIRGINIA REILLY MD 09/11/17 Furosemide (Lasix 20Mg Tab) 20 Mg Tablet, 60 MG PO DAILY for 30 Days, #30 TAB Prov:VIRGINIA REILLY MD 09/11/17 Carvedilol (Coreg) 6.25 Mg Tablet, 6.25 MG PO BID for 30 Days, #60 TAB Prov:VIRGINIA REILLY MD 09/11/17 Amiodarone HCl (Pacerone) 200 Mg Tablet, 200 MG PO DAILY for 30 Days, #30 TAB Prov:VIRGINIA REILLY MD 09/11/17 Acetaminophen (Tylenol) 325 Mg Tablet, 650 MG PO Q6H PRN for TEMPERATURE GREATER THAN 101.5 for 5 Days, #15 TAB Prov:VIRGINIA REILLY MD 09/11/17 New Medications: Isosorbide Mononitrate (Isosorbide Mononitrate ER) 30 Mg Tab.er.24h 1 TAB PO DAILY for 30 Days, #30 TAB 0 Refills Metoprolol Succinate (Toprol Xl) 25 Mg Tab.er.24h 25 MG PO DAILY, #30 TAB Continued Medications: Atorvastatin Calcium (Atorvastatin Calcium) 40 Mg Tablet 1 TAB PO DAILY for 30 Days, #30 TAB 0 Refills Carvedilol (Carvedilol) 12.5 Mg Tablet 12.5 MG PO BID, #60 TAB 0 Refills Cetirizine HCl (Cetirizine HCl) 10 Mg Tablet 10 MG PO DAILY, TAB Clopidogrel Bisulfate (Plavix) 75 Mg Tablet 75 MG PO DAILY, #30 TAB 0 Refills Dapagliflozin Propanediol (Farxiga) 10 Mg Tablet 1 TAB PO DAILY for 30 Days, #30 TAB 0 Refills [doCUSate SODIUM 100 MG CAP] () 100 MG CAPSULE 100 MG PO BID PRN for c, #60 0 Refills Furosemide (Furosemide) 20 Mg Tablet 20 MG PO DAILY, TAB Gabapentin (Gabapentin) 100 Mg Capsule 100 MG PO DAILY PRN for daily for 5 Days, #5 CAP Hydroxyzine HCl (Hydroxyzine HCl) 25 Mg Tablet 25 MG PO BID PRN for ANXIETY/AGITATION, TAB Losartan Potassium (Losartan Potassium) 25 Mg Tablet 25 MG PO DAILY, TAB Pantoprazole Sodium (Pantoprazole Sodium) 40 Mg Tablet.dr 1 TAB PO DAILY for 30 Days, #30 TAB 0 Refills Rivaroxaban (Xarelto) 20 Mg Tablet 20 MG PO HS, TAB Spironolactone (Spironolactone) 25 Mg Tablet 25 MG PO DAILY, TAB Discontinued Medications: Acetaminophen (Tylenol) 325 Mg Tablet 650 MG PO Q6H PRN for TEMPERATURE GREATER THAN 101.5 for 5 Days, #15 TAB Amiodarone HCl (Pacerone) 200 Mg Tablet 200 MG PO DAILY for 30 Days, #30 TAB Amiodarone HCl (Amiodarone HCl) 200 Mg Tablet 200 MG PO DAILY, TAB Carvedilol (Coreg) 6.25 Mg Tablet 6.25 MG PO BID for 30 Days, #60 TAB Carvedilol (Carvedilol) 6.25 Mg Tablet 6.25 MG PO BID, TAB Clindamycin HCl (Clindamycin HCl) 300 Mg Capsule 1 CAP PO QID for 7 Days, #28 CAP 0 Refills Furosemide (Lasix 20Mg Tab) 20 Mg Tablet 60 MG PO DAILY for 30 Days, #30 TAB Furosemide (Furosemide) 20 Mg Tablet 20 MG PO DAILY, TAB Losartan Potassium (Cozaar) 50 Mg Tablet 25 MG PO DAILY for 30 Days, #30 TAB Losartan Potassium (Losartan Potassium) 25 Mg Tablet 25 MG PO DAILY, TAB Pantoprazole Sodium (Protonix) 40 Mg Tablet.dr 40 MG PO BIDAC for 30 Days, #60 TAB 0 Refills Rivaroxaban (Xarelto) 20 Mg Tablet 20 MG PO DAILY for 30 Days, #30 TAB Rivaroxaban (Xarelto) 20 Mg Tablet 20 MG PO DAILY, TAB Spironolactone (Aldactone) 25 Mg Tablet 25 MG PO DAILY, #30 TAB 0 Refills Sucralfate (Carafate) 1 Gm Tablet 1 GM PO ACHS, #60 TAB 0 Refills Time spent arranging discharge: 31-60 minutes TIGRE NORWOOD MD Oct 01, 2024 17:02
== END 2024-10-01 17:00 | disposition home or self-care (01) | DRG 313 ==
LOC: EDH 22:43 → EDHIP 22:44 → 4DH 09-29 21:29
PROVIDERS: ADMIT Internal Medicine; ATTEND Internal Medicine
PROC: 4A02XM4 Measurement of Cardiac Total Activity, External Approach (ICD-10-PCS; principal; 2024-09-30)
PROC: 3E073KZ Introduction of Other Diagnostic Substance into Coronary Artery, Percutaneous Approach (ICD-10-PCS; 2024-09-30)
DX: R07.89 Other chest pain (principal); I48.21 Permanent atrial fibrillation; I50.22 Chronic systolic (congestive) heart failure; I42.0 Dilated cardiomyopathy; I11.0 Hypertensive heart disease with heart failure; Z20.822 Contact with and (suspected) exposure to COVID-19; D50.9 Iron deficiency anemia, unspecified; E11.9 Type 2 diabetes mellitus without complications; I25.10 Atherosclerotic heart disease of native coronary artery without angina pectoris; G30.9 Alzheimer's disease, unspecified; F02.80 Dementia in other diseases classified elsewhere, unspecified severity, without behavioral disturbance, psychotic disturbance, mood disturbance, and anxiety; Z79.01 Long term (current) use of anticoagulants; Z79.82 Long term (current) use of aspirin; Z79.899 Other long term (current) drug therapy; Z80.3 Family history of malignant neoplasm of breast; Z82.3 Family history of stroke; Z82.49 Family history of ischemic heart disease and other diseases of the circulatory system; Z82.5 Family history of asthma and other chronic lower respiratory diseases; Z83.3 Family history of diabetes mellitus; Z95.5 Presence of coronary angioplasty implant and graft; Z95.810 Presence of automatic (implantable) cardiac defibrillator
CPT/HCPCS: 36415; 71045; 78452; 80048; 80305; 81001; 82550; 83735; 83880; 84100; 84484; 85025; 87635; 87804; 87880; 93005; 93017; A9500; G0378; J1650; J1940; J2785

== ENCOUNTER 2025-03-10 12:10 | Inpatient (IN) | payer SELFPAY ==
[~2025-03-10] VITALS: Ht 165.1 cm; Wt 80.0 kg
[~2025-03-10 12:10] MED LIST changes: -ACET-2247 PO; -AMIO200T44 PO; -AMIO200T68 PO; +ATOR40TA71 PO; -CARV6.25 PO; -CARV6.2579 PO; -CLIN-141 PO; +DAPA10TA PO; -FURO20TA6 PO; +ISOS30TA92 PO; -LOSA-418 PO; +METO25TA3 PO; -PANT40TA PO; +PANT40TA54 PO; -SPIR25TA PO; -SUCR1TAB PO
[2025-03-10] MEDS ORDERED: NITROGLYCERIN 0.4 MG SL TAB SL PRN (12:30)
--- NOTE | 2025-03-10 12:35 | EKG ---
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
[2025-03-10 12:42] LABS: APPEARANCE,URINE CLEAR (CLEAR); GLUCOSE, URINE (UA) NEGATIVE (NEGATIVE); LEUKOCYTE ESTERASE ,URINE NEGATIVE Leu/uL (NEGATIVE); NITRATE,URINE NEGATIVE (NEGATIVE); OCCULT BLOOD,URINE NEGATIVE (NEGATIVE)
[2025-03-10 12:44] LABS: IMMATURE GRANULOCYTE ABSOLUTE 0.02 K/uL (0-1); NUCLEATED RED BLOOD CELLS 0.0 % (0.0-0.19); PLATELET COUNT (AUTO) 238 K/uL (130-400); RED BLOOD CELL COUNT(AUTO) 3.54 MIL/uL (4.50-6.20); RED CELL DISTRIBUTION WIDTH 21.0 % (11.0-15.5); WHITE BLOOD COUNT (AUTO) 6.9 K/uL (4.8-10.8)
[2025-03-10 12:45] LABS: ADD UA MICROSCOPIC NO
[2025-03-10 12:51] LABS: CREATININE 0.9 mg/dL (0.5-1.3); GLOMERULAR FILTR. RATE CALC 101.0 mL/min (>90); GLUCOSE,RANDOM 101.0 mg/dL (70-105); SODIUM SERUM 136.0 mmol/L (136-145); UREA NITROGEN, BLOOD 18.0 mg/dL (7-18)
[2025-03-10 12:57] LABS: CREATINE KINASE, TOTAL 142.0 U/L (21-232)
--- NOTE | 2025-03-10 13:30 | HMCIMG ---
EXAM: CR Chest, 1 View. CLINICAL HISTORY: CP COMPARISON: Radiograph from September 28, 2024 FINDINGS: LUNGS: The lungs show no infiltrate or other acute finding. PLEURAL SPACES: No pleural effusion or pneumothorax. MEDIASTINUM: AICD leads overlie the right atrium and right ventricle. Heart size is stable. Pulmonary vessels are within normal limits. BONES: No aggressive appearing osseous lesion seen. IMPRESSION: 1. No acute cardiopulmonary findings. /[place]
--- NOTE | 2025-03-10 14:09 | ERN ---
General Chief Complaint: Chest Pain Stated Complaint: CHEST PAIN Time Seen by MD: 12:16 Source: patient History of Present Illness Initial Comments PATIENT IS A 55-YEAR-OLD MALE COMING IN COMPLAINING OF CHEST PRESSURE CHEST DISCOMFORT. PER PATIENT THIS HAS BEEN ONGOING ON AND OFF FOR ONE WEEK. PATIENT DOES HAVE EXTENSIVE HISTORY OF CAD WITH MULTIPLE STENT PLACEMENT AND PACEMAKER PLACEMENT. PATIENT ALSO STATES THAT THE PRESSURE INCREASES WITH MOVEMENT. Allergies: Coded Allergies: No Known Allergies (Unverified Allergy, Unknown, 09/25/17) morphine (Unverified Allergy, Unknown, DIZZINESS, 04/13/24) WORSING MY STATE OF HEALTH, AFTER TAKING IT FEELS WORSE THAN MY USUAL STATE Home Meds Active Scripts Metoprolol Succinate (Toprol Xl) 25 Mg Tab.er.24h, 25 MG PO DAILY, #30 TAB Prov:TIGRE NORWOOD MD 10/01/24 Isosorbide Mononitrate (Isosorbide Mononitrate ER) 30 Mg Tab.er.24h, 1 TAB PO DAILY for 30 Days, #30 TAB 0 Refills Prov:TIGRE NORWOOD MD 10/01/24 Clopidogrel Bisulfate (Plavix) 75 Mg Tablet, 75 MG PO DAILY, #30 TAB 0 Refills Prov:WILL ANDREPCNP 04/13/24 Carvedilol (Carvedilol) 12.5 Mg Tablet, 12.5 MG PO BID, #60 TAB 0 Refills Prov:WILL ANDREPCSORAYA 04/13/24 [doCUSate SODIUM 100 MG CAP] 100 MG CAPSULE No Conflict Check, 100 MG PO BID PRN for c, #60 0 Refills Prov:WILL ANDRE 04/13/24 Gabapentin (Gabapentin) 100 Mg Capsule, 100 MG PO DAILY PRN for daily for 5 Days, #5 CAP Prov:HECTOR MELTON MD 02/08/24 Reported Medications Atorvastatin Calcium (Atorvastatin Calcium) 40 Mg Tablet, 1 TAB PO DAILY for 30 Days, #30 TAB 0 Refills 09/29/24 Dapagliflozin Propanediol (Farxiga) 10 Mg Tablet, 1 TAB PO DAILY for 30 Days, #30 TAB 0 Refills 09/29/24 Pantoprazole Sodium (Pantoprazole Sodium) 40 Mg Tablet.dr, 1 TAB PO DAILY for 30 Days, #30 TAB 0 Refills 09/29/24 Hydroxyzine HCl (Hydroxyzine HCl) 25 Mg Tablet, 25 MG PO BID PRN for ANXIETY/AGITATION, TAB 04/09/24 Cetirizine HCl (Cetirizine HCl) 10 Mg Tablet, 10 MG PO DAILY, TAB 04/09/24 Spironolactone (Spironolactone) 25 Mg Tablet, 25 MG PO DAILY, TAB 01/29/24 Losartan Potassium (Losartan Potassium) 25 Mg Tablet, 25 MG PO DAILY, TAB 01/29/24 Furosemide (Furosemide) 20 Mg Tablet, 20 MG PO DAILY, TAB 01/29/24 Rivaroxaban (Xarelto) 20 Mg Tablet, 20 MG PO HS, TAB 01/29/24 Past Medical History Past Medical History: A-Fib, High Cholesterol, Heart Disease, Hypertension Medical History Other: BRADYCARDIA Past Surgical History: Cholecystectomy Surgical History Other: HEART STENT Family History Family History: CAD Social History Social History: Negative, Lives with family ROS Dictation CONSTITUTIONAL: NO CHILLS, NO FEVER, NO WEAKNESS, NO DIAPHORESIS, NO MALAISE. HEAD/FACE: NO SIGNS OF TRAUMA. EENT: NO EYE PAIN, NO BLURRED VISION, NO TEARING, NO DOUBLE VISION, NO EAR PAIN, NO EAR DISCHARGE, NO NOSE PAIN, NO NASAL CONGESTION, NO THROAT PAIN, NO THROAT SWELLING, NO MOUTH PAIN. RESPIRATORY: NO COUGH, NO ORTHOPNEA, NO SOB, NO STRIDOR, NO WHEEZING. CARDIOVASCULAR: NO CHEST PAIN, NO EDEMA, NO PALPITATIONS, NO SYNCOPE. GASTROINTESTINAL/ABDOMINAL: NO ABDOMINAL PAIN, NO CONSTIPATION, NO DIARRHEA, NO NAUSEA, NO VOMITING. GENITOURINARY: NO ABNORMAL DISCHARGE, NO DYSURIA, NO FREQUENT URINATION, NO HEMATURIA. NO COMPLAINTS OF PAIN IN THE GENITALS. MUSCULOSKELETAL: NO BACK PAIN, NO GOUT, NO JOINT PAIN, NO JOINT SWELLING, NO MUSCLE PAIN, NO MUSCLE STIFFNESS, NO NECK PAIN. INTEGUMENTARY: NO CHANGE IN COLOR, NO CHANGE IN HAIR/NAILS, NO DRYNESS, NO LESION, NO LUMPS, NO RASH. NEUROLOGICAL/PSYCH: NO ANXIETY, NOT DEPRESSED, NO EMOTIONAL PROBLEM, NO HEADACHE, NO NUMBNESS, NO PRE-EXISTING DEFICIT, NO HISTORY OF SEIZURES, NO TREMORS, NO WEAKNESS. HEMATOLOGIC/LYMPHATIC: NOT ANEMIC, NO HISTORY OF BLOOD CLOTS, NO APPARENT BLEEDING, NO BRUISING, GLANDS NOT SWOLLEN. ALL SYSTEMS NEGATIVE, EXCEPT NOTED. Results Laboratory and Microbiology Lab and Micro Result Laboratory Tests Test 03/10/25 12:29 03/10/25 13:58 White Blood Count 6.9 K/uL (4.8-10.8) Red Blood Count 3.54 MIL/uL (4.50-6.20) L Hemoglobin 8.7 g/dL (14.0-18.0) L Hematocrit 29.1 % (42-54) L Mean Corpuscular Volume 82.2 fL (79-99) Mean Corpuscular Hemoglobin 24.6 pg (27.0-33.0) L Mean Corpuscular Hemoglobin Concent 29.9 g/dL (32.0-36.0) L Red Cell Distribution Width 21.0 % (11.0-15.5) H Platelet Count 238 K/uL (130-400) Mean Platelet Volume 9.9 fL (7.5-10.5) Immature Granulocyte % (Auto) 0.3 % (0-1) Neutrophils (%) (Auto) 69.7 % (40.0-77.0) Lymphocytes (%) (Auto) 18.9 % (21.0-51.0) L Monocytes (%) (Auto) 9.8 % (3.0-13.0) Eosinophils (%) (Auto) 0.7 % (0.0-8.0) Basophils (%) (Auto) 0.6 % (0.0-5.0) Neutrophils # (Auto) 4.8 K/uL (1.8-7.7) Lymphocytes # (Auto) 1.3 K/uL (1.0-4.8) Monocytes # (Auto) 0.7 K/uL (0.1-1.0) Eosinophils # (Auto) 0.05 K/uL (0.00-0.70) Basophils # (Auto) 0.04 K/uL (0.00-0.20) Absolute Immature Granulocyte (auto 0.02 K/uL (0-1) Nucleated Red Blood Cells 0.0 % (0.0-0.19) Red Blood Cell Morphology See comments Urine Color COLORLESS (YELLOW) Urine Appearance CLEAR (CLEAR) Urine pH 6.0 (5.0-8.0) Urine Specific [place] 1.008 (1.001-1.031) Urine Protein NEGATIVE mg/dL (NEGATIVE) Urine Glucose (UA) NEGATIVE mg/dL (NEGATIVE) Urine Ketones NEGATIVE mg/dL (NEGATIVE) Urine Occult Blood NEGATIVE (NEGATIVE) Urine Nitrate NEGATIVE (NEGATIVE) Urine Bilirubin NEGATIVE mg/dL (NEGATIVE) Urine Urobilinogen 0.2 mg/dL (0.2-1.0) Urine Leukocyte Esterase NEGATIVE Mery/uL Sodium Level 136 mmol/L (136-145) Potassium Level 4.2 mmol/L (3.5-5.1) Chloride Level 105 mmol/L (101-111) Carbon Dioxide Level 26 mmol/L (21-32) Blood Urea Nitrogen 18 mg/dL (7-18) Creatinine 0.9 mg/dL (0.5-1.3) Glomerular Filtration Rate Calc 101 mL/min (>90) Random Glucose 101 mg/dL (70-105) Total Calcium 8.4 mg/dL (8.5-10.1) L Magnesium Level 2.00 mg/dL (1.80-2.40) Total Creatine Kinase 142 U/L (21-232) # Troponin I High Sensitivity 7 ng/L (4-75) 8 ng/L (4-75) B-Type Natriuretic Peptide 522 pg/mL (0-100) H Labs Reviewed?: Yes EKG/XRAY/US/CT/MRI EKG Comment 03/10/2025 TIME 12 VENTRICULAR RATE [address] WAVE ELEVATION OR DEPRESSION MDM MDM: DIFFERENTIAL DIAGNOSIS: ACS, CHEST PAIN, HISTORY OF CAD, RATIONALE: TESTS CONSIDERED AND ORDERED SECONDARY TO SHARED DECISION MAKING INCLUDE: PREVIOUS OUTSIDE RECORDS REVIEWED: OLD ER VISITS. RISK OF COMPLICATION AND/OR MORBIDITY OR MORTALITY OF PATIENT MANAGEMENT: NONE MEDICATIONS-PER MEDICATION RECONCILIATION NEED FOR HOSPITALIZATION: PATIENT DOES MEET CRITERIA FOR HOSPITALIZATION. NEED FOR EMERGENCY MAJOR/MINOR SURGERY: NO THERE ARE NO SOCIAL CONCERNS WITH THIS PATIENT. PRESCRIPTION DRUG MANAGEMENT PRESCRIPTIONS WILL INCLUDE SYMPTOMATIC CARE PATIENT'S PRIOR EXTERNAL MEDICAL RECORDS FROM OTHER ER VISITS WERE REVIEWED BY ME INDICATED. PRIOR TESTING AND RESULTS FROM PREVIOUS VISITS WERE REVIEWED. PRIOR TESTS WERE TAKEN INTO ACCOUNT WITH MEDICAL DECISION MAKING AND RESOURCE UTILIZATION, INDEPENDENT HISTORIAN/HISTORIANS WERE USED TO OBTAIN COMPLETE MEDICAL HISTORY. I INDEPENDENTLY INTERPRETED THE TEST THAT WERE PERFORMED, RESULTS WERE REVIEWED BY ME AND CONSIDERED FINDINGS ON RADIOLOGY IF ORDERED. MEDICAL MANAGEMENT AND EXAMINATION INTERPRETATION DISCUSSIONS WERE HAD BY ME WITH OTHER QUALIFIED HEALTHCARE PROFESSIONALS INDICATED FOR THE PATIENT'S CARE. PATIENT WILL BE ADMITTED UNDER THE CARE OF HOSPITALIST GROUP. ED Course Orders Procedure Category Date Status Time 12 Lead Ekg Tracing- EKG 03/10/25 Complete Technical 12:18 Cbc With Differential LAB 03/10/25 Complete 12:22 Chest 1vw RAD 03/10/25 Resulted 12:22 Magnesium LAB 03/10/25 Complete 12:22 Creatine Kinase, Total LAB 03/10/25 Complete 12:22 Troponin I High LAB 03/10/25 Complete Sensitivity 12:22 Urinalysis Profile LAB 03/10/25 Complete 12:22 Basic Metabolic Panel LAB 03/10/25 Complete 12:22 Nitroglycerin 0.4mg PHA 03/10/25 In Process Sl Tab (Nitrostat) 12:30 B-Type Natriuretic LAB 03/10/25 Complete Peptide 12:27 Troponin I High LAB 03/10/25 Complete Sensitivity 13:50 Drug Screen Urine LAB 03/10/25 Logged 14:33 Current Medications Medications (Trade) Dose Ordered Sig/Teodoro Route PRN Reason Start Time Stop Time Status Last Admin Dose Admin Nitroglycerin (Nitrostat) 0.4 mg AD PRN SL CHEST PAIN 03/10/25 12:30 04/09/25 12:29 Vital Signs Date Time Temp Pulse Resp B/P (MAP) Pulse Ox O2 Delivery O2 Flow Rate FiO2 03/10/25 14:31 58 19 121/67 98 Room Air* 0 03/10/25 13:22 98.8 58 19 119/69 98 Room Air* 0 03/10/25 12:33 62 19 124/70 98 Room Air* 0 03/10/25 12:13 98.1 70 18 121/81 100 Room Air 0 DX & DISP Disposition: Inpatient Decision to Admit Time: 14:55 Departure Impression: Primary Impression: Chest pain Condition: Stable Referrals: FELICITY CARLOS MD (PCP) SHAVON MARIEE MD Mar 10, 2025 14:09
[2025-03-10 14:55] LABS: AMPHET/METH SCREEN,URINE NEGATIVE (NEGATIVE); BARBITURATE SCREEN, URINE NEGATIVE (NEGATIVE); CANNABINOID SCREEN,URINE NEGATIVE (NEGATIVE); COCAINE SCREEN,URINE NEGATIVE (NEGATIVE)
[2025-03-10] MEDS ORDERED: CELE-125 PO (15:31)
[2025-03-10] MEDS: ISOSORBIDE MONO 30MG SR TAB PO SCH (15:38)
[2025-03-10 16:40] VITALS: BP 129/86; PULSE 44; RESP 20; TEMP 97.8
[2025-03-10 16:51] VITALS: O2SAT 98
--- NOTE | 2025-03-10 17:43 | HP ---
[facility] HISTORY AND PHYSICAL Date of Service: Mar 10, 2025 Time of Service: 17:29 HISTORY OF PRESENT ILLNESS: Date of service: 03/10/2025, patient was seen in ER room 20 This is a 55-year-old male with multiple cardiac history including coronary artery disease with prior history of PCI with KITTY placement to proximal LAD, proximal RCA, and mid to distal RCA in 03/2024, history of ischemic cardiomyopathy, chronic systolic congestive heart failure with improved LV EF of 45-50%, history of AICD placement in 2018, history of chronic atrial fibrillation maintained on anticoagulation with Xarelto, history of left atrial appendage thrombus, hypertension who presented to the ER for further evaluation of substernal chest pain. Patient states that symptoms started last night and has been progressive in intensity. Pain was involving the midsternal/substernal region and was moderate in intensity. Today, he noticed that he was having nonresolving chest pain when he woke up this morning. Denies any trauma to the chest. Patient is followed by Dr. Mendoza with Cardiology. Reports being compliant with antiplatelet therapy with Plavix 75 mg daily as well as Xarelto 20 mg daily. Patient does report that he recently ran out of isosorbide mononitrate and did not take his morning dose today. Patient denies any fevers, chills, denies any nausea, vomiting, or abdominal pain. On presentation, patient was noted to be afebrile with T-max of 98.1 F, heart rate of 70, blood pressure 121/81. Labs on presentation showed WBC count of 6900, hemoglobin of 8.7, platelet count of 619756. BMP on presentation showed sodium of 136, potassium 4.2, BUN of 18, creatinine 0.9, high sensitivity cardiac troponin which was noted to be negative x2, BNP of 522. Patient will be admitted and due to multiple underlying cardiac comorbidities, we will rule out ACS. Consultation with Cardiology will be requested REVIEW OF SYSTEMS CONSTITUTIONAL: Denies fevers, chills, or night sweats. No unintentional weight loss reported. NEUROLOGICAL: Denies headache, amaurosis fugax, motor weakness, sensory deficit, vertigo/spinning sensation, gait abnormalities, or tremors. ENT: No hearing loss, otalgia, otorrhea, rhinitis, rhinorrhea, hoarseness, or sore throat. CARDIOVASCULAR: chest pain that started last night PULMONARY: Denies any shortness of breath, cough, phlegm/sputum, hemoptysis, pleuritic chest pain. SLEEP: Denies morning headaches, daytime somnolence or napping. Denies difficulty falling asleep, staying asleep, waking from sleep. Denies knowledge of snoring. GASTROINTESTINAL: Denies any type of dysphagia to either liquids or solids. Denies nausea, vomiting, pyrosis, early satiety, abdominal pain, diarrhea, constipation, or changes in stool consistency or caliber. Denies coffee-ground emesis, hematemesis, hematochezia, or melanotic stools. GENITOURINARY: Denies frequency, urgency, nocturia, hematuria or incontinence (Storage/Irritative symptoms.) Low urinary stream, straining to void, urinary intermittency or hesitancy, splitting of the voiding stream, terminal dribbling. ENDOCRINOLOGIC: Denies polyuria, polydipsia, polyphagia or heat/cold intolerances. HEMATOLOGIC: Denies thrombophilia/previous clots, or coagulopathy/bleeding disorders. ONCOLOGIC: Denies personal history of malignancy. DERMATOLOGIC: Denies rashes or pruritus. PSYCHIATRIC: Denies any suicidal or homicidal ideation. Denies hallucinations. ADDITIONAL PAST MEDICAL HISTORY: [Hypertension, hyperlipidemia, CHF with LVEF 45-50% by 2D echo on 04/09/2024, atrial fibrillation, history of ischemic cardiomyopathy, history of left atrial thrombus] SOCIAL HISTORY: [Negative for smoking, alcohol use, drug use. Patient lives with a significant other Heidi [place]. Patient is typically independent of his ADLs. Patient denies difficulty pain is bills. Patient is currently unemployed. Patient has poor access to health care due to lack of health insurance.] SURGICAL HISTORY: [hx of AICD, hx of PCI w/ KITTY placement ([employer]onic mehreen [place] 3.5 x 18 mm) to the proximal LAD, ([employer] mehreen [place] 3.0 x 18 mm) to the proximal RCA, ([employer]onic mehreen [place] 3.0 x 38 mm) to the mid to distal RCA on 04/12/2024, hx of cholecystectomy} Allergies: Patient reports having adverse reaction to morphine Home medications: Home medications include spironolactone 25 mg p.o. daily, losartan 25 mg daily, Lasix 20 mg daily, metoprolol succinate 25 mg daily, Xarelto 20 mg daily, Lamcmb30 mg daily, Protonix 40 mg daily, atorvastatin 40 mg at bedtime, isosorbide mononitrate 30 mg daily Coded Allergies: No Known Allergies (Unverified Allergy, Unknown, 09/25/17) morphine (Unverified Allergy, Unknown, DIZZINESS, 04/13/24) WORSING MY STATE OF HEALTH, AFTER TAKING IT FEELS WORSE THAN MY USUAL STATE PHYSICAL EXAM GENERAL APPEARANCE: The patient is awake, alert, and oriented, in no acute cardiopulmonary distress. NEUROLOGICAL: Cranial nerves II-XII grossly intact. Motor is 5/5 in bilateral upper and lower extremities proximal to distal. No sensory deficits. HEENT: Face is symmetric. Pupils are equal and reactive. Extraocular movements are intact. NECK: Supple. No JVD. No thyromegaly. No submental, submandibular, pre- /postauricular, occipital or supraclavicular lymphadenopathy. CHEST: Normal chest expansion. No Telemetry. LUNGS: Absence of any rales, rhonchi or any wheezing. CARDIOVASCULAR: Regular. S1 and S2 normal. No appreciable rubs, murmurs or gallops. ABDOMEN: Soft, nontender, and nondistended. There is no rebound, voluntary guarding, or rigidity. : Deferred. No Mtz. EXTREMITIES: Non-edematous and not cyanotic. No clubbing. Good capillary refill. SKIN: No skin breakdown. Vital Sign (Last 24 Hours) 03/10/25 03/10/25 03/10/25 13:22 16:26 16:51 Temp 98.8 Pulse 47 Resp 19 B/P (MAP) 131/95 Pulse Ox 98 O2 Delivery Room Air* O2 Flow Rate 0 FiO2 21 LABS: Laboratory: Test 03/10/25 13:58 03/10/25 12:29 Range/Units Troponin I High Sensitivity 8 4-75 ng/L White Blood Count 6.9 4.8-10.8 K/uL Red Blood Count 3.54 L 4.50-6.20 MIL/uL Hemoglobin 8.7 L 14.0-18.0 g/dL Hematocrit 29.1 L 42-54 % Mean Corpuscular Volume 82.2 79-99 fL Mean Corpuscular Hemoglobin 24.6 L 27.0-33.0 pg Mean Corpuscular Hemoglobin Concent 29.9 L 32.0-36.0 g/dL Red Cell Distribution Width 21.0 H 11.0-15.5 % Platelet Count 238 130-400 K/uL Mean Platelet Volume 9.9 7.5-10.5 fL Immature Granulocyte % (Auto) 0.3 0-1 % Neutrophils (%) (Auto) 69.7 40.0-77.0 % Lymphocytes (%) (Auto) 18.9 L 21.0-51.0 % Monocytes (%) (Auto) 9.8 3.0-13.0 % Eosinophils (%) (Auto) 0.7 0.0-8.0 % Basophils (%) (Auto) 0.6 0.0-5.0 % Neutrophils # (Auto) 4.8 1.8-7.7 K/uL Lymphocytes # (Auto) 1.3 1.0-4.8 K/uL Monocytes # (Auto) 0.7 0.1-1.0 K/uL Eosinophils # (Auto) 0.05 0.00-0.70 K/uL Basophils # (Auto) 0.04 0.00-0.20 K/uL Absolute Immature Granulocyte (auto 0.02 0-1 K/uL Nucleated Red Blood Cells 0.0 0.0-0.19 % Red Blood Cell Morphology See comments Urine Color COLORLESS YELLOW Urine Appearance CLEAR CLEAR Urine pH 6.0 5.0-8.0 Urine Specific [place] 1.008 1.001-1.031 Urine Protein NEGATIVE NEGATIVE mg/dL Urine Glucose (UA) NEGATIVE NEGATIVE mg/dL Urine Ketones NEGATIVE NEGATIVE mg/dL Urine Occult Blood NEGATIVE NEGATIVE Urine Nitrate NEGATIVE NEGATIVE Urine Bilirubin NEGATIVE NEGATIVE mg/dL Urine Urobilinogen 0.2 0.2-1.0 mg/dL Urine Leukocyte Esterase NEGATIVE NEGATIVE Mery/uL Sodium Level 136 136-145 mmol/L Potassium Level 4.2 3.5-5.1 mmol/L Chloride Level 105 101-111 mmol/L Carbon Dioxide Level 26 21-32 mmol/L Blood Urea Nitrogen 18 7-18 mg/dL Creatinine 0.9 0.5-1.3 mg/dL Glomerular Filtration Rate Calc 101 >90 mL/min Random Glucose 101 70-105 mg/dL Total Calcium 8.4 L 8.5-10.1 mg/dL Magnesium Level 2.00 1.80-2.40 mg/dL Total Creatine Kinase 142 # 21-232 U/L B-Type Natriuretic Peptide 522 H 0-100 pg/mL Urine Opiates Screen NEGATIVE NEGATIVE Urine Barbiturates Screen NEGATIVE NEGATIVE Urine Phencyclidine Screen NEGATIVE NEGATIVE Urine Amphetamines Screen NEGATIVE NEGATIVE Urine Benzodiazepines Screen NEGATIVE NEGATIVE Urine Cocaine Screen NEGATIVE NEGATIVE Urine Marijuana (THC) Screen NEGATIVE NEGATIVE Current Medications Medications (Trade) Dose Ordered Sig/Teodoro Route PRN Reason Start Time Stop Time Status Last Admin Dose Admin Acetaminophen (TYLenol 325MG TAB) 650 mg Q6H PRN PO MILD PAIN (1-3) 03/10/25 15:30 04/09/25 15:29 Atorvastatin Calcium (LIPItor 40MG) 40 mg HS PO 03/10/25 21:00 04/09/25 20:59 Clopidogrel Bisulfate (plaVIX 75MG) 75 mg DAILY PO 03/11/25 09:00 04/10/25 08:59 Furosemide (LASix 20MG TAB) 20 mg DAILY PO 03/11/25 09:00 04/10/25 08:59 Isosorbide Mononitrate (Imdur 30mg Sr) 30 mg Q24H PO 03/10/25 15:30 04/09/25 15:29 03/10/25 15:38 30 MG Losartan Potassium (CozAAR 25MG TAB) 25 mg DAILY PO 03/11/25 09:00 04/10/25 08:59 Metoprolol Succinate (TopROL XL) 25 mg DAILY PO 03/11/25 09:00 04/10/25 08:59 Nitroglycerin (Nitrostat) 0.4 mg AD PRN SL CHEST PAIN 03/10/25 12:30 04/09/25 12:29 Ondansetron HCl (zoFRAN 4MG INJ) 4 mg Q6H PRN IVP NAUSEA/VOMITING 03/10/25 15:30 04/09/25 15:29 Pantoprazole Sodium (PROTonix 40MG TAB) 40 mg DAILY PO 03/11/25 09:00 04/10/25 08:59 Rivaroxaban (Xarelto) 20 mg DAILY PO 03/11/25 09:00 04/10/25 08:59 Spironolactone (Aldactone 25mg) 25 mg DAILY PO 03/11/25 09:00 04/10/25 08:59 DIAGNOSTICS / RADIOLOGY: SERVICE 1222 REASON: CP ORDERING PHYSICIAN: SHAVON MAIREE MD PROCEDURE: CXR1VW - CHEST 1VW EXAM: CR Chest, 1 View. CLINICAL HISTORY: CP COMPARISON: Radiograph from September 28, 2024 FINDINGS: LUNGS: The lungs show no infiltrate or other acute finding. PLEURAL SPACES: No pleural effusion or pneumothorax. MEDIASTINUM: AICD leads overlie the right atrium and right ventricle. Heart size is stable. Pulmonary vessels are within normal limits. BONES: No aggressive appearing osseous lesion seen. IMPRESSION: 1. No acute cardiopulmonary findings. /[place] DICTATED BY: KAY BEJARANO Jr., MD DATE: 03/10/251429 ELECTRONICALLY SIGNED BY: KAY BEJARANO Jr., MD DATE: 03/10/251429 ASSESSMENT: Chest pain, POA, rule out unstable angina/ACS History of multivessel coronary artery disease with prior history of PCI to Proximal LAD, proximal RCA, mid to distal RCA in 03/2024, POA History of ischemic cardiomyopathy, POA History of atrial fibrillation, POA History of chronic anticoagulation with Xarelto, POA Chronic anemia, baseline hemoglobin of 8-9 this year in 2024, POA History of ICD placement, POA PLAN: Patient will be admitted to cardiac telemetry floor We will trend troponin to rule out active ACS Patient to continue with home dose of Plavix and Xarelto We will check an iron panel given anemia noted, patient noted to have hemoglobin between 8-9 since earlier this year, patient denies active signs of bleeding and denies any melena or hematochezia, if occult stool is positive, we will consider consultation with GI We will hold celecoxib due to current antiplatelet/anticoagulant therapy Consultation with Cardiology will be requested with Dr. Mendoza Continue with guideline directed medical therapy including metoprolol succinate 25 mg daily, Lasix 20 mg daily, losartan 25 mg daily, spironolactone 25 mg daily We will maintain potassium greater than four and magnesium greater than two All labs will be repeated in the morning including CBC, BNP, magnesium, we will check iron panel, obtain stool guaiac, if significantly iron deficiency, will start IV Iron sucrose therapy for the patient We will obtain a 2D echocardiogram this admission as it has been greater than six months since last echocardiogram Date of service: 03/10/2025 Plan of care was discussed with patient at bedside, Jean Still MD Advanced Care Planning: Which of the following were discussed: Hospice care: Yes __ No _X_ Therapeutic options: Yes _X_ No __ Advance directives: Yes _X_ No __ Other discussions: Discussed with who?: Patient Voluntary nature of this service was explained to the patient? Yes _x_ No __ Amount of time spent: 20 minutes JEAN STILL MD Mar 10, 2025 17:43
[2025-03-10 18:13] LABS: CREATINE KINASE, TOTAL 116.0 U/L (21-232)
[2025-03-10 18:34] LABS: % IRON SATURATION 4.9 % (30-44); IRON, SERUM 19.0 mcg/dL (65-175)
[2025-03-10 20:00] VITALS: BP 110/59; PULSE 49; RESP 18; TEMP 97.8; O2SAT 95
[2025-03-11] VITALS (7 sets, daily range): BP systolic 108–142; BP diastolic 64–81; PULSE 42–68; RESP 18–20; TEMP 97.6–98.6; O2SAT 99–100
[2025-03-11 04:23] LABS: IMMATURE GRANULOCYTE ABSOLUTE 0.01 K/uL (0-1); NUCLEATED RED BLOOD CELLS 0.0 % (0.0-0.19); PLATELET COUNT (AUTO) 216 K/uL (130-400); RED BLOOD CELL COUNT(AUTO) 3.44 MIL/uL (4.50-6.20); RED CELL DISTRIBUTION WIDTH 20.8 % (11.0-15.5); WHITE BLOOD COUNT (AUTO) 4.9 K/uL (4.8-10.8)
[2025-03-11 04:40] LABS: CREATINE KINASE, TOTAL 99.0 U/L (21-232); CREATININE 1.2 mg/dL (0.5-1.3); GLOMERULAR FILTR. RATE CALC 71.0 mL/min (>90); GLUCOSE,RANDOM 87.0 mg/dL (70-105); SODIUM SERUM 138.0 mmol/L (136-145); UREA NITROGEN, BLOOD 18.0 mg/dL (7-18)
--- NOTE | 2025-03-11 06:54 | CONS ---
Cardiac Consult Note CONSULT NOTE DATE OF SERVICE: Mar 10, 2025 at 12:10 REFERRING PROVIDER: WILIAM MERCER MD REASON FOR CONSULT: Atypical chest pain HPI: 55-year-old gentleman well known to me who has a history of persistent atrial fibrillation as well as 2 large thrombi in left atrial appendage documented in 2016 via [facility] necessitating immediate initiation of anticoagulation therapy with Xarelto. Patient has had a history of a nonischemic cardiomyopathy with the ejection fraction is 50 going 20-25% on initial presentation in 2016. Patient did have a dual-chamber Biotronik AICD placed in August of 2017. Patient had a coronary angiogram done in August of 2017 revealing nonobstructive disease. Patient has been maintained on anticoagulation and has been compliant with his Xarelto treatment. He has not had any subsequent TIAs or CVA since initial presentation. It should be noted that in March of 2024 patient was noted to have significant symptoms consistent with unstable angina went on for coronary angiogram we had a 3.5 mm x 18 mm medicated stent to his LAD and a 3 mm x 38 mm medicated stent to his mid and distal RCA and a 3 mm x 18 mm medicated stent to his proximal RCA. Patient's last 2D echocardiogram revealed an ejection fraction of 45-50% in March of 2024. It should be noted on patient's last evaluation with me in September of 2024 we are going to schedule patient for a repeat angiogram secondary to recurrent symptoms. Patient was then able to keep that appointment but he has been very compliant with his medical therapy. Patient did have a stress test in September of 2024 revealing no evidence of ischemia or infarct with an ejection fraction of 67%. Patient states he did run out of his isosorbide mononitrate recently. Patient does describe general fatigue at times. It should be noted that in reviewing patient's laboratory data he does have a significant anemia which when compared to last year at this time which is when he had his heart catheterization and subsequent stents his hemoglobin was in the 14 gram/deciliter range. This is now at 8.7 grams/deciliter. Patient started having this significant anemia progress since he was started on clopidogrel therapy. ROS: No fever, headache, chest pain, abdominal pain, nausea, vomiting, or diarrhea. PMHX: Atrial fibrillation/flutter persistent presenting in 2016 To large thrombi noted in left atrial appendage via [facility] March 2017 necessitating Xarelto treatment. Previous nonischemic cardiomyopathy with the ejection fraction at 20-25% in 2016 with subsequent normalization or near normalization. History of dual-chamber AICD Biotronik placement August 2017 Coronary angiography April 09, 2024 revealing significant LAD and RCA stenosis with subsequent 3.5 mm x 18 mm mehreen Bethel stent to LAD and a 3 mm x 38 mm mehreen Bethel stent to RCA and a 3 mm x 18 mm medicated stent to proximal RCA September 2024 Lexiscan Cardiolite revealing no evidence of ischemia or infarct with ejection fraction at 67% PSHX: Dual-chamber AICD Biotronik placement August 2017 Laparoscopic cholecystectomy 2020 FH: Negative noncontributory SOCIAL: Nonsmoker nondrinker PHYSICAL EXAMINATION: GENERAL: No acute distress. Speaks Turkish only HEENT: Normocephalic, atraumatic. CARDIAC: Positive S1 and S2. No murmurs. LUNGS: Clear to auscultation bilaterally. ABDOMEN: Bowel sounds present, soft, nontender. EXTREMITIES: No edema bilaterally. NEUROLOGIC: Cranial nerves 2-12 grossly intact. PSYCHIATRIC: Calm. ASSESSMENT: Anemia Atypical chest pain with negative cardiac enzymes x2 Persistent atrial fibrillation on Xarelto anticoagulation History of PTCA and stenting to LAD and RCA March 2024 necessitating clopidogrel therapy now almost at 1 year out PLAN: Currently I think would be most appropriate to focus on patient's underlying progressive anemia which has been ongoing and worsening over the last year. Patient has required Xarelto therapy for many years now but did not have any anemia while on this therapy and once clopidogrel was initiated in March of 2024 we see over the year that his blood counts specifically hemoglobin have continued to slowly drop. I do not think any further cardiac workup is necessa ry at this time but would recommend he be seen by Gastroenterology and I have placed a consult for [place] [facility] to assist with his management and care. In the interim I am going to stop his clopidogrel and I will stop his Xarelto as well until they make recommendations and hopefully prior to dismissal patient will have at the very least an endoscopy done. The patient will be started on high-dose pantoprazole therapy. Orders have been placed medications have been held all questions have been answered. Vital Signs 03/10/25 03/10/25 03/10/25 03/10/25 12:13 12:33 13:22 14:31 Temp 98.1 98.8 Pulse 70 62 58 58 Resp 18 19 19 19 B/P (MAP) 121/81 124/70 119/69 121/67 Pulse Ox 100 98 98 98 O2 Delivery Room Air Room Air* Room Air* Room Air* O2 Flow Rate 0 0 0 0 FiO2 21 21 21 03/10/25 03/10/25 03/10/25 03/10/25 16:26 16:40 16:51 20:00 Temp 97.9 97.9 Pulse 47 44 49 Resp 19 20 18 B/P (MAP) 131/95 129/86 110/59 Pulse Ox 98 98 98 95 O2 Delivery Room Air* Room Air Room Air* Room Air O2 Flow Rate 0 0 FiO2 21 21 03/10/25 03/11/25 03/11/25 20:00 00:00 04:00 Temp 97.9 98.2 Pulse 42 68 Resp 18 18 B/P (MAP) 116/64 108/64 Pulse Ox 95 96 99 O2 Delivery Room Air* Room Air Room Air O2 Flow Rate 0 FiO2 21 Laboratory Tests Test 03/10/25 12:29 03/10/25 13:58 03/10/25 17:47 03/11/25 03:42 White Blood Count 6.9 K/uL (4.8-10.8) 4.9 K/uL (4.8-10.8) Red Blood Count 3.54 MIL/uL (4.50-6.20) 3.44 MIL/uL (4.50-6.20) Hemoglobin 8.7 g/dL (14.0-18.0) 8.4 g/dL (14.0-18.0) Hematocrit 29.1 % (42-54) 28.7 % (42-54) Mean Corpuscular Volume 82.2 fL (79-99) 83.4 fL (79-99) Mean Corpuscular Hemoglobin 24.6 pg (27.0-33.0) 24.4 pg (27.0-33.0) Mean Corpuscular Hemoglobin Concent 29.9 g/dL (32.0-36.0) 29.3 g/dL (32.0-36.0) Red Cell Distribution Width 21.0 % (11.0-15.5) 20.8 % (11.0-15.5) Platelet Count 238 K/uL (130-400) 216 K/uL (130-400) Mean Platelet Volume 9.9 fL (7.5-10.5) 10.2 fL (7.5-10.5) Immature Granulocyte % (Auto) 0.3 % (0-1) 0.2 % (0-1) Neutrophils (%) (Auto) 69.7 % (40.0-77.0) 47.8 % (40.0-77.0) Lymphocytes (%) (Auto) 18.9 % (21.0-51.0) 36.0 % (21.0-51.0) Monocytes (%) (Auto) 9.8 % (3.0-13.0) 12.6 % (3.0-13.0) Eosinophils (%) (Auto) 0.7 % (0.0-8.0) 2.4 % (0.0-8.0) Basophils (%) (Auto) 0.6 % (0.0-5.0) 1.0 % (0.0-5.0) Neutrophils # (Auto) 4.8 K/uL (1.8-7.7) 2.4 K/uL (1.8-7.7) Lymphocytes # (Auto) 1.3 K/uL (1.0-4.8) 1.8 K/uL (1.0-4.8) Monocytes # (Auto) 0.7 K/uL (0.1-1.0) 0.6 K/uL (0.1-1.0) Eosinophils # (Auto) 0.05 K/uL (0.00-0.70) 0.12 K/uL (0.00-0.70) Basophils # (Auto) 0.04 K/uL (0.00-0.20) 0.05 K/uL (0.00-0.20) Absolute Immature Granulocyte (auto 0.02 K/uL (0-1) 0.01 K/uL (0-1) Nucleated Red Blood Cells 0.0 % (0.0-0.19) 0.0 % (0.0-0.19) Red Blood Cell Morphology See comments Urine Color COLORLESS (YELLOW) Urine Appearance CLEAR (CLEAR) Urine pH 6.0 (5.0-8.0) Urine Specific Leonard 1.008 (1.001-1.031) Urine Protein NEGATIVE mg/dL (NEGATIVE) Urine Glucose (UA) NEGATIVE mg/dL (NEGATIVE) Urine Ketones NEGATIVE mg/dL (NEGATIVE) Urine Occult Blood NEGATIVE (NEGATIVE) Urine Nitrate NEGATIVE (NEGATIVE) Urine Bilirubin NEGATIVE mg/dL (NEGATIVE) Urine Urobilinogen 0.2 mg/dL (0.2-1.0) Urine Leukocyte Esterase NEGATIVE Mery/uL Sodium Level 136 mmol/L (136-145) 138 mmol/L (136-145) Potassium Level 4.2 mmol/L (3.5-5.1) 4.2 mmol/L (3.5-5.1) Chloride Level 105 mmol/L (101-111) 104 mmol/L (101-111) Carbon Dioxide Level 26 mmol/L (21-32) 28 mmol/L (21-32) Blood Urea Nitrogen 18 mg/dL (7-18) 18 mg/dL (7-18) Creatinine 0.9 mg/dL (0.5-1.3) 1.2 mg/dL (0.5-1.3) Glomerular Filtration Rate Calc 101 mL/min (>90) 71 mL/min (>90) Random Glucose 101 mg/dL (70-105) 87 mg/dL (70-105) Total Calcium 8.4 mg/dL (8.5-10.1) 8.3 mg/dL (8.5-10.1) Magnesium Level 2.00 mg/dL (1.80-2.40) Total Creatine Kinase 142 U/L (21-232) 116 U/L (21-232) 99 U/L (21-232) Troponin I High Sensitivity 7 ng/L (4-75) 8 ng/L (4-75) 7.3 ng/L (4-75) 8.0 ng/L (4-75) B-Type Natriuretic Peptide 522 pg/mL (0-100) Urine Opiates Screen NEGATIVE (NEGATIVE) Urine Barbiturates Screen NEGATIVE (NEGATIVE) Urine Phencyclidine Screen NEGATIVE (NEGATIVE) Urine Amphetamines Screen NEGATIVE (NEGATIVE) Urine Benzodiazepines Screen NEGATIVE (NEGATIVE) Urine Cocaine Screen NEGATIVE (NEGATIVE) Urine Marijuana (THC) Screen NEGATIVE (NEGATIVE) Iron Level 19 mcg/dL (65-175) Total Iron Binding Capacity 386 mcg/dL (250-450) Percent Iron Saturation 4.9 % (30-44) Ferritin 9 ng/mL (30-400) Current Medications Medications Dose Ordered Sig/Teodoro Route PRN Reason Start Time Stop Time Status Last Admin Pantoprazole Sodium 40 mg DAILY PO 03/11/25 09:00 04/10/25 08:59 Isosorbide Mononitrate 30 mg Q24H PO 03/10/25 15:30 04/09/25 15:29 03/10/25 15:38 Clopidogrel Bisulfate 75 mg DAILY PO 03/11/25 09:00 04/10/25 08:59 Rivaroxaban 20 mg DAILY PO 03/11/25 09:00 04/10/25 08:59 Metoprolol Succinate 25 mg DAILY PO 03/11/25 09:00 04/10/25 08:59 Atorvastatin Calcium 40 mg HS PO 03/10/25 21:00 04/09/25 20:59 03/10/25 20:13 Furosemide 20 mg DAILY PO 03/11/25 09:00 04/10/25 08:59 Losartan Potassium 25 mg DAILY PO 03/11/25 09:00 04/10/25 08:59 Spironolactone 25 mg DAILY PO 03/11/25 09:00 04/10/25 08:59 Iron Sucrose 300 mg/Sodium Chloride 250 ml @ 83 mls/hr DAILY IV 03/11/25 09:00 03/14/25 09:00 Active Scripts Metoprolol Succinate (Toprol Xl) 25 Mg Tab.er.24h, 25 MG PO DAILY, #30 TAB Prov:TIGRE NORWOOD MD 10/01/24 Isosorbide Mononitrate (Isosorbide Mononitrate ER) 30 Mg Tab.er.24h, 1 TAB PO DAILY for 30 Days, #30 TAB 0 Refills Prov:TIGRE NORWOOD MD 10/01/24 Clopidogrel Bisulfate (Plavix) 75 Mg Tablet, 75 MG PO DAILY, #30 TAB 0 Refills Prov:WILL ANDRE 04/13/24 Reported Medications Celecoxib (Celecoxib) 200 Mg Capsule, 1 CAP PO DAILY for pain for 30 Days, #30 CAP 0 Refills 03/10/25 Atorvastatin Calcium (Atorvastatin Calcium) 40 Mg Tablet, 1 TAB PO DAILY for 30 Days, #30 TAB 0 Refills 09/29/24 Pantoprazole Sodium (Pantoprazole Sodium) 40 Mg Tablet.dr, 1 TAB PO DAILY for 30 Days, #30 TAB 0 Refills 09/29/24 Spironolactone (Spironolactone) 25 Mg Tablet, 25 MG PO DAILY, TAB 01/29/24 Losartan Potassium (Losartan Potassium) 25 Mg Tablet, 25 MG PO DAILY, TAB 01/29/24 Furosemide (Furosemide) 20 Mg Tablet, 20 MG PO DAILY, TAB 01/29/24 Rivaroxaban (Xarelto) 20 Mg Tablet, 20 MG PO HS, TAB 01/29/24 Discontinued Reported Medications Dapagliflozin Propanediol (Farxiga) 10 Mg Tablet, 1 TAB PO DAILY for 30 Days, #30 TAB 0 Refills 09/29/24 Hydroxyzine HCl (Hydroxyzine HCl) 25 Mg Tablet, 25 MG PO BID PRN for ANXIETY/AGITATION, TAB 04/09/24 Cetirizine HCl (Cetirizine HCl) 10 Mg Tablet, 10 MG PO DAILY, TAB 04/09/24 Discontinued Scripts Carvedilol (Carvedilol) 12.5 Mg Tablet, 12.5 MG PO BID, #60 TAB 0 Refills Prov:WILL ANDRE AGPCNP 04/13/24 [doCUSate SODIUM 100 MG CAP] 100 MG CAPSULE No Conflict Check, 100 MG PO BID PRN for c, #60 0 Refills Prov:WILL ANDRE AGPCNP 04/13/24 Gabapentin (Gabapentin) 100 Mg Capsule, 100 MG PO DAILY PRN for daily for 5 Days, #5 CAP Prov:HECTOR MELTON MD 02/08/24 WILIAM MERCER MD Mar 11, 2025 06:54
[2025-03-11] MEDS ORDERED: RIVAROXABAN 20 MG TABLET PO SCH (09:00)
[2025-03-11] MEDS: ISOSORBIDE MONO 30MG SR TAB PO SCH (09:02)
[2025-03-11] MEDS: SPIRONOLACTONE 25 MG TAB PO SCH (09:02)
[2025-03-11] MEDS ORDERED: MAGNESIUM 2GM PREMIX 50ML 50 ML IV PRN (11:30)
[2025-03-11] MEDS ORDERED: PoTASSium chl 10% ELIXIR 20MEQ 20 MEQ/15 ML UDCUP PO PRN (11:30)
--- NOTE | 2025-03-11 13:24 | NUR ---
DCP:HOME Pt currently lives with his life partner eHidi [place] [phone]. pt does not have any DME, home health, or provider services. Pt states that he is able to complete ADLs independently. PCP is Dr. Chase Jacobs and uses [facility] for any RX needs. At ID pt will want to go home and family can assist with transportation. Addendum: 03/11/25 at 1326 by SAM WALTER SS Amended: Links added.
--- NOTE | 2025-03-11 13:59 | PN ---
[facility] PROGRESS NOTE Date of Service: Mar 11, 2025 Time of Service: 13:59 SUBJECTIVE: This is a 55-year-old male with multiple cardiac history including coronary artery disease with prior history of PCI with KITTY placement to proximal LAD, proximal RCA, and mid to distal RCA in 03/2024, history of ischemic cardiomyopathy, chronic systolic congestive heart failure with improved LV EF of 45-50%, history of AICD placement in 2018, history of chronic atrial fibrillation maintained on anticoagulation with Xarelto, history of left atrial appendage thrombus, hypertension who presented to the ER for further evaluation of substernal chest pain. Patient states that symptoms started last night and has been progressive in intensity. Pain was involving the midsternal/substernal region and was moderate in intensity. Today, he noticed that he was having nonresolving chest pain when he woke up this morning. Denies any trauma to the chest. Patient is followed by Dr. Mendoza with Cardiology. Reports being compliant with antiplatelet therapy with Plavix 75 mg daily as well as Xarelto 20 mg daily. Patient does report that he recently ran out of isosorbide mononitrate and did not take his morning dose today. Patient denies any fevers, chills, denies any nausea, vomiting, or abdominal pain. On presentation, patient was noted to be afebrile with T-max of 98.1 F, heart rate of 70, blood pressure 121/81. Labs on presentation showed WBC count of 6900, hemoglobin of 8.7, platelet count of [id number]. BMP on presentation showed sodium of 136, potassium 4.2, BUN of 18, creatinine 0.9, high sensitivity cardiac troponin which was noted to be negative x2, BNP of 522. 03/11/2025: The patient is alert, awake, and oriented. As the patient only speaks Persian, rate materials handler was used to converse with the patient. The patient did not complain of any substernal chest pains. Troponin was trended 4 times and was negative. Patient's BNP is 522, therefore an echocardiogram was ordered. Patient's hemoglobin today is 8.4 iron on panel shows iron deficiency anemia with transferrin saturation of 4.9%, therefore the patient was transfused 1 unit of iron sucrose. Patient's home medication include celecoxib, isosorbide mononitrate, metoprolol succinate, atorvastatin, pantoprazole, clopidogrel, furosemide, losartan, rivaroxaban, and spironolactone . The patient's celecoxib was stopped on admission due to the antiplatelet and anticoagulation therapy. Cardiology saw the patient and recommended to focus on patient's underlying progressive anemia which has been ongoing and worsening over the last year. According to Cardiology, the patient has required Xarelto therapy for many years but did not have any anemia while on this therapy and once clopidogrel was initiated in March 2024, the hemoglobin started showing a downward trend. As per cardiology's, no cardiac workup is required at this time but they recommended gastroenterology consult placed a consult for [place] [facility] to assist with patient's management and care. Meanwhile, Cardiology stopped the patient's clopidogrel and Xarelto until gastroenterology make recommendations. REVIEW OF SYSTEMS CONSTITUTIONAL: Denies fevers, chills, or night sweats. No unintentional weight loss reported. NEUROLOGICAL: Denies headache, amaurosis fugax, motor weakness, sensory deficit, vertigo/spinning sensation, gait abnormalities, or tremors. ENT: No hearing loss, otalgia, otorrhea, rhinitis, rhinorrhea, hoarseness, or sore throat. CARDIOVASCULAR: Substernal chest pain PULMONARY: Denies any shortness of breath, cough, phlegm/sputum, hemoptysis, pleuritic chest pain. SLEEP: Denies morning headaches, daytime somnolence or napping. Denies difficulty falling asleep, staying asleep, waking from sleep. Denies knowledge of snoring. GASTROINTESTINAL: Denies any type of dysphagia to either liquids or solids. Denies nausea, vomiting, pyrosis, early satiety, abdominal pain, diarrhea, constipation, or changes in stool consistency or caliber. Denies coffee-ground emesis, hematemesis, hematochezia, or melanotic stools. GENITOURINARY: Denies frequency, urgency, nocturia, hematuria or incontinence (Storage/Irritative symptoms.) Low urinary stream, straining to void, urinary intermittency or hesitancy, splitting of the voiding stream, terminal dribbling. ENDOCRINOLOGIC: Denies polyuria, polydipsia, polyphagia or heat/cold intolerances. PHYSICAL EXAM GENERAL APPEARANCE: The patient is awake, alert, and oriented, in no acute cardiopulmonary distress. NEUROLOGICAL: Cranial nerves II-XII grossly intact. Motor is 5/5 in bilateral upper and lower extremities proximal to distal. No sensory deficits. HEENT: Face is symmetric. Pupils are equal and reactive. Extraocular movements are intact. NECK: Supple. No JVD. No thyromegaly. No submental, submandibular, pre- /postauricular, occipital or supraclavicular lymphadenopathy. CHEST: Normal chest expansion. No Telemetry. LUNGS: Absence of any rales, rhonchi or any wheezing. CARDIOVASCULAR: Regular. S1 and S2 normal. No appreciable rubs, murmurs or gallops. ABDOMEN: Soft, nontender, and nondistended. There is no rebound, voluntary guarding, or rigidity. : Deferred. No Mtz. EXTREMITIES: Non-edematous and not cyanotic. No clubbing. Good capillary refill. SKIN: No skin breakdown. Vital Signs (last 8hr) Date Time Temp Pulse Resp B/P (MAP) Pulse Ox O2 Delivery O2 Flow Rate FiO2 03/11/25 12:00 98.6 54 20 142/78 96 Room Air 03/11/25 08:00 100 Room Air* 0 21 03/11/25 07:55 98.6 45 20 137/81 100 Room Air LABS: Laboratory: Test 03/11/25 03:42 03/10/25 17:47 03/10/25 12:29 Range/Units White Blood Count 4.9 # 4.8-10.8 K/uL Red Blood Count 3.44 L 4.50-6.20 MIL/uL Hemoglobin 8.4 L 14.0-18.0 g/dL Hematocrit 28.7 L 42-54 % Mean Corpuscular Volume 83.4 79-99 fL Mean Corpuscular Hemoglobin 24.4 L 27.0-33.0 pg Mean Corpuscular Hemoglobin Concent 29.3 L 32.0-36.0 g/dL Red Cell Distribution Width 20.8 H 11.0-15.5 % Platelet Count 216 130-400 K/uL Mean Platelet Volume 10.2 7.5-10.5 fL Immature Granulocyte % (Auto) 0.2 0-1 % Neutrophils (%) (Auto) 47.8 40.0-77.0 % Lymphocytes (%) (Auto) 36.0 21.0-51.0 % Monocytes (%) (Auto) 12.6 3.0-13.0 % Eosinophils (%) (Auto) 2.4 0.0-8.0 % Basophils (%) (Auto) 1.0 0.0-5.0 % Neutrophils # (Auto) 2.4 1.8-7.7 K/uL Lymphocytes # (Auto) 1.8 1.0-4.8 K/uL Monocytes # (Auto) 0.6 0.1-1.0 K/uL Eosinophils # (Auto) 0.12 0.00-0.70 K/uL Basophils # (Auto) 0.05 0.00-0.20 K/uL Absolute Immature Granulocyte (auto 0.01 0-1 K/uL Nucleated Red Blood Cells 0.0 0.0-0.19 % Sodium Level 138 136-145 mmol/L Potassium Level 4.2 3.5-5.1 mmol/L Chloride Level 104 101-111 mmol/L Carbon Dioxide Level 28 21-32 mmol/L Blood Urea Nitrogen 18 7-18 mg/dL Creatinine 1.2 0.5-1.3 mg/dL Glomerular Filtration Rate Calc 71 >90 mL/min Random Glucose 87 70-105 mg/dL Total Calcium 8.3 L 8.5-10.1 mg/dL Total Creatine Kinase 99 21-232 U/L Troponin I High Sensitivity 8.0 4-75 ng/L Iron Level 19 L 65-175 mcg/dL Total Iron Binding Capacity 386 250-450 mcg/dL Percent Iron Saturation 4.9 L 30-44 % Ferritin 9 L 30-400 ng/mL Red Blood Cell Morphology See comments Urine Color COLORLESS YELLOW Urine Appearance CLEAR CLEAR Urine pH 6.0 5.0-8.0 Urine Specific [place] 1.008 1.001-1.031 Urine Protein NEGATIVE NEGATIVE mg/dL Urine Glucose (UA) NEGATIVE NEGATIVE mg/dL Urine Ketones NEGATIVE NEGATIVE mg/dL Urine Occult Blood NEGATIVE NEGATIVE Urine Nitrate NEGATIVE NEGATIVE Urine Bilirubin NEGATIVE NEGATIVE mg/dL Urine Urobilinogen 0.2 0.2-1.0 mg/dL Urine Leukocyte Esterase NEGATIVE NEGATIVE Mery/uL Magnesium Level 2.00 1.80-2.40 mg/dL B-Type Natriuretic Peptide 522 H 0-100 pg/mL Urine Opiates Screen NEGATIVE NEGATIVE Urine Barbiturates Screen NEGATIVE NEGATIVE Urine Phencyclidine Screen NEGATIVE NEGATIVE Urine Amphetamines Screen NEGATIVE NEGATIVE Urine Benzodiazepines Screen NEGATIVE NEGATIVE Urine Cocaine Screen NEGATIVE NEGATIVE Urine Marijuana (THC) Screen NEGATIVE NEGATIVE Current Medications Medications (Trade) Dose Ordered Sig/Teodoro Route PRN Reason Start Time Stop Time Status Last Admin Dose Admin Acetaminophen (TYLenol 325MG TAB) 650 mg Q6H PRN PO MILD PAIN (1-3) 03/10/25 15:30 04/09/25 15:29 Atorvastatin Calcium (LIPItor 40MG) 40 mg HS PO 03/10/25 21:00 04/09/25 20:59 03/10/25 20:13 40 MG Clopidogrel Bisulfate (plaVIX 75MG) 75 mg DAILY PO 03/11/25 09:00 03/11/25 06:44 DC Docusate Sodium (COLace 100MG CAP) 100 mg BID PRN PO CONSTIPATION 03/11/25 11:30 04/10/25 11:29 Furosemide (LASix 20MG TAB) 20 mg DAILY PO 03/11/25 09:00 04/10/25 08:59 03/11/25 09:02 20 MG Iron Sucrose 300 mg/Sodium Chloride 250 ml @ 83 mls/hr DAILY IV 03/11/25 09:00 03/14/25 09:00 03/11/25 11:02 83 MLS/HR Isosorbide Mononitrate (Imdur 30mg Sr) 30 mg Q24H PO 03/10/25 15:30 03/11/25 07:58 DC 03/10/25 15:38 30 MG Isosorbide Mononitrate (Imdur 30mg Sr) 30 mg Q24H PO 03/11/25 09:00 04/10/25 08:59 03/11/25 09:02 30 MG Losartan Potassium (CozAAR 25MG TAB) 25 mg DAILY PO 03/11/25 09:00 04/10/25 08:59 03/11/25 09:02 25 MG Magnesium Sulfate 50 ml @ 0 mls/hr PROTOCOL PRN IV MAGNESIUM PROTOCOL 03/11/25 11:30 04/10/25 11:29 Metoprolol Succinate (TopROL XL) 25 mg DAILY PO 03/11/25 09:00 04/10/25 08:59 03/11/25 09:02 25 MG Nitroglycerin (Nitrostat) 0.4 mg AD PRN SL CHEST PAIN 03/10/25 12:30 04/09/25 12:29 Ondansetron HCl (zoFRAN 4MG INJ) 4 mg Q6H PRN IVP NAUSEA/VOMITING 03/10/25 15:30 04/09/25 15:29 Pantoprazole Sodium (PROTonix 40MG TAB) 40 mg DAILY PO 03/11/25 09:00 04/10/25 08:59 03/11/25 09:02 40 MG Potassium Chloride 100 ml @ 100 mls/hr AD PRN IV POTASSIUM PROTOCOL 03/11/25 11:30 04/10/25 11:29 Potassium Chloride (K-Dur/Klor-Con 20meq) 20 meq AD PRN PO POTASSIUM PROTOCOL 03/11/25 11:30 04/10/25 11:29 Potassium Chloride (KCl 10% Elixir 20meq/15ml) 20 meq AD PRN PO POTASSIUM PROTOCOL 03/11/25 11:30 04/10/25 11:29 Rivaroxaban (Xarelto) 20 mg DAILY PO 03/11/25 09:00 03/11/25 06:44 DC Spironolactone (Aldactone 25mg) 25 mg DAILY PO 03/11/25 09:00 04/10/25 08:59 03/11/25 09:02 25 MG DIAGNOSTICS / RADIOLOGY: PATIENT: MARY GILES MR#: [id number] : 1970 SEX: M AGE: 55 LOCATION: [facility] ORDER 22 STATUS: REG REPORT#: [id number] SERVICE [id number] REASON: ORDERING PHYSICIAN: SHAVON MARIEE MD PROCEDURE: CXR1VW - CHEST 1VW EXAM: CR Chest, 1 View. CLINICAL HISTORY: COMPARISON: Radiograph from September 28, 2024 FINDINGS: LUNGS: The lungs show no infiltrate or other acute finding. PLEURAL SPACES: No pleural effusion or pneumothorax. MEDIASTINUM: AICD leads overlie the right atrium and right ventricle. Heart size is stable. Pulmonary vessels are within normal limits. BONES: No aggressive appearing osseous lesion seen. IMPRESSION: 1. No acute cardiopulmonary findings. /[place] DICTATED BY: KAY BEJARANO Jr., MD DATE: 03/10/251429 ELECTRONICALLY SIGNED BY: KAY BEJARANO Jr., MD DATE: 03/10/25 143 ASSESSMENT: Chest pain, POA, rule out unstable angina/ACS History of multivessel coronary artery disease with prior history of PCI to Proximal LAD, proximal RCA, mid to distal RCA in 03/2024, POA History of ischemic cardiomyopathy, POA History of atrial fibrillation, POA History of chronic anticoagulation with Xarelto, POA Chronic anemia, baseline hemoglobin of 8-9 this year in 2024, POA History of ICD placement, POA PLAN: Chest pain, POA, rule out unstable angina/ACS Troponin was trended 4 times and was negative (7,8,7.3,8) Patient's BNP is 522, therefore an echocardiogram was ordered. Home medication include celecoxib, isosorbide mononitrate, metoprolol succinate, atorvastatin, pantoprazole, clopidogrel, furosemide, losartan, rivaroxaban, and spironolactone. Celecoxib was stopped on admission due to the antiplatelet and anticoagulation therapy. Cardiology stopped the patient's clopidogrel and Xarelto until gastroenterology make recommendations. No cardiac workup is required at this time Maintain potassium > 4 and magnesium > 2 Unspecified Anemia Hemoglobin today is 8.4 Iron panel shows iron deficiency anemia with transferrin saturation of 4.9%, therefore the patient was transfused 1 unit of iron sucrose. Monitor H & H. Cardiology recommended to focus on patient's underlying progressive anemia which has been ongoing and worsening over the last year. According to Cardiology, the patient has required Xarelto therapy for many years but did not have any anemia while on this therapy and once clopidogrel was initiated in March 2024, the hemoglobin started showing a downward trend. Gastroenterology consulted Ordered stool for occult blood PHYSICIAN STATEMENT I was present with the resident during the History and Physical exam and I have reviewed the resident's note. This case was discussed with the resident and I agree with the history, physical exam and medical decision making as documented. Additions/exceptions/observations were directly added to the notes. Bonilla Lewis MD, SYED M MD Mar 11, 2025 13:59
--- NOTE | 2025-03-11 16:04 | HMCSR ---
APPROVED REPORT EXAM: Two-dimensional and M-mode echocardiogram with Doppler and color Doppler. INDICATION ICD: Substernal chest pain 2D Dimensions RVDd4.1 cmLVEF(%)63.1 (>50%)LVED Vol(simp.)97.8 mL IVSd0.9 (0.7-1.1cm)FS(%)34 %LVES Vol(simp.)51.0 mL LVDd5.2 (3.8-5.6cm)LA (2D)4.6 (1.6-4.0cm)LVEF(%, simp.)48 % PWd1.0 (0.7-1.1cm)Ao Root(2D)2.7 (2.0-3.7cm)LA ESV INDEX (BP)49.55 mL/m2 LVDs3.4 (2.5-4.0cm)LVOT diam2.4 (1.8-2.4cm) IVC diam1.5 cm Deformation Strain Apical 4-12.6 % Apical 2-16.6 % Apical 3-11.8 % Global Strain-13.7 % M-Mode Dimensions EPSS1.5 cm LA (MM)4.7 (1.6-4.0cm) Ao Root(MM)3.3 (2.0-3.7cm) Aortic Valve AoV Vmax1.7 m/Neena Peak GR11.9 mmHgLVOT Vmax1.1 m/s AoV VTI0.3 mAo Mean GR5.9 mmHgLVOT VTI0.23 m LOVE (VMAX)2.73 cm2Al P1/2T975 msAVA (VTI) 3.1 cm2 Mitral Valve MV E Vmax76.1 cm/sDECEL Xuhn203 ms MV A Vmax23.8 cm/sP 1/2 T52 ms E/A ratio3.2MVA (PHT)4.2 cm2 TDI E/E' Medial9.9E/E' Lateral6.8 Medial E' Peak V7.72 cm/sLateral E' Peak V11.11 cm/s Pulmonary Valve PV Vmax1.2 m/sPV VTI0.25 mPV Mean GR3.1 mmHg PV Peak GR5.9 mmHg Tricuspid Valve TR Vmax2.3 m/sRAP (EST) 3 xeLfAOPV35.0 mmHg TR Peak GR21.0 mmHg Left Ventricle The left ventricle is normal size. Global strain of -14%. There is normal left ventricular wall thick ness. LVEF is 50-55%. The LV diastolic function was unable to be assessed due to atrial arrhythmia. Right Ventricle The right ventricle is boderline dilated. The right ventricular systolic function is normal. Atria The left atrium is severely dilated. LASVI 50mL/m The right atrium is severely dilated. Aortic Valve The aortic valve is normal in structure. Trace of aortic regurgitation is present. There is no aortic valvular stenosis. Mitral Valve The mitral valve is normal in structure. There is no mitral valve regurgitation noted. There is no mi tral valve stenosis. Tricuspid Valve The tricuspid valve is normal in structure. There is mild tricuspid valve regurgitation noted. Pulmonic Valve The pulmonary valve is normal in structure. There is no pulmonic valvular regurgitation. Great Vessels The aortic root is normal in size. The IVC is normal in size and collapses >50% with inspiration. Pericardium There is no pericardial effusion. Other Information Quality : Adequate Conclusion LVEF is 50-55%. Global strain of -14%. Trace of aortic regurgitation is present.
--- NOTE | 2025-03-11 17:33 | CONS ---
GASTROENTEROLOGY CONSULTATION NOTE Date of Consultation: Mar 11, 2025 Time of Consultation: 17:31 History of Present Illness: [This is a 55-year-old male patient who presents to the emergency room with complaints of chest pressure and chest discomfort for the past week. Patient with past medical history for hypertension, coronary artery disease with multiple stent placements, congestive heart failure with LVEF of 50-55%, chronic atrial fibrillation and pacemaker in place . Patient currently on Xarelto and Plavix. We were consulted for worsening anemia on Xarelto and clopidogrel. WBC of 4.9, hemoglobin 8.4, platelets 216. Iron 19, TIBC 386, 4.9% saturation, and ferritin 9. Chest x-ray with no acute cardiopulmonary findings. Patient's last EGD on 12/04/2020 which showed chronic inactive gastritis. On exam patient is resting in semi-Ott's. In no acute distress. He reports having had chest pain and does the reason for this ER visit. Due to his anemia, it is recommended for EGD and colonoscopy. Information on exam is given informed cardiac clearance would be needed and is recommended patient is off all of Xarelto for 2 days and off Plavix for five days. We will await Cardiology recommendations and clearance. Patient agreed ] Review of Systems: CONSTITUTIONAL: No malaise or change in sensation of wellbeing. ENMT: No rhinorrhea, otorrhea, sinus pain, ear ache. CARDIOVASCULAR: No angina, palpitations, orthopnea or paroxysmal dyspnea. RESPIRATORY: No SOB. GASTROINTESTINAL: No abdominal pain, nausea, vomiting, diarrhea, hematemesis, melena or change in the patient's habitual bowel movements consistency/number. GENITOURINARY: No dysuria, hematuria or change in bladder continence. MUSCULOSKELETAL: No new muscle pain or decrease in muscular strength. No new joint swelling, redness or tenderness. SKIN: No new rash. Past Medical History: Hypertension, hyperlipidemia, CHF with LVEF 45-50% by 2D echo on 04/09/2024, atrial fibrillation, history of ischemic cardiomyopathy, history of left atrial thrombus] SOCIAL HISTORY: [Negative for smoking, alcohol use, drug use. Patient lives with a significant other Heidi [place]. Patient is typically independent of his ADLs. Patient denies difficulty pain is bills. Patient is currently unemployed. Patient has poor access to health care due to lack of health insurance.] SURGICAL HISTORY: [hx of AICD, hx of PCI w/ KITTY placement ([employer]onic mehreen Moffat 3.5 x 18 mm) to the proximal LAD, ([employer] mehreen Moffat 3.0 x 18 mm) to the proximal RCA, ([employer] mehreen Moffat 3.0 x 38 mm) to the mid to distal RCA on 04/12/2024, hx of cholecystectomy} Coded Allergies: No Known Allergies (Unverified Allergy, Unknown, 09/25/17) morphine (Unverified Allergy, Unknown, DIZZINESS, 04/13/24) WORSING MY STATE OF HEALTH, AFTER TAKING IT FEELS WORSE THAN MY USUAL STATE Physical Exam: GEN: Awake, alert, oriented in person, time and place, and in no acute distress. HEENT: No sinus tenderness. Tympanic membranes were not examined. No rhinorrhea. Oral pharyngeal mucosa is pink, moist and within normal limits. CHEST: Inspection, palpation and percussion of the chest were unremarkable. Lung auscultation revealed normal breath sounds bilaterally. CARDIAC: PMI is within normal limits. Heart sounds are regular. ABD: Soft, non-tender and not distended. No peritoneal signs on palpation. No organomegaly. Normal bowel sounds. EXT: No cyanosis or clubbing. No edema. SKIN: Intact. No rashes. JOINTS: No evidence of synovitis or acute arthritis. NEURO: Alert and oriented to name, place and person. Cranial nerve examination is unremarkable. No focal motor deficits. Normal speech. Strength is normal. Vital Sign (Last 24 Hours) 03/11/25 03/11/25 08:00 16:00 Temp 97.5 Pulse 55 Resp 20 B/P (MAP) 130/75 Pulse Ox 99 O2 Delivery Room Air O2 Flow Rate 0 FiO2 21 Intake & Output (last 24hrs) 03/10/25 03/10/25 03/11/25 15:00 23:00 07:00 Intake Total 240 ml Output Total 400 ml Balance -160 ml Laboratory: [ ] Laboratory: Test 03/11/25 03:42 03/10/25 17:47 03/10/25 12:29 Range/Units White Blood Count 4.9 # 4.8-10.8 K/uL Red Blood Count 3.44 L 4.50-6.20 MIL/uL Hemoglobin 8.4 L 14.0-18.0 g/dL Hematocrit 28.7 L 42-54 % Mean Corpuscular Volume 83.4 79-99 fL Mean Corpuscular Hemoglobin 24.4 L 27.0-33.0 pg Mean Corpuscular Hemoglobin Concent 29.3 L 32.0-36.0 g/dL Red Cell Distribution Width 20.8 H 11.0-15.5 % Platelet Count 216 130-400 K/uL Mean Platelet Volume 10.2 7.5-10.5 fL Immature Granulocyte % (Auto) 0.2 0-1 % Neutrophils (%) (Auto) 47.8 40.0-77.0 % Lymphocytes (%) (Auto) 36.0 21.0-51.0 % Monocytes (%) (Auto) 12.6 3.0-13.0 % Eosinophils (%) (Auto) 2.4 0.0-8.0 % Basophils (%) (Auto) 1.0 0.0-5.0 % Neutrophils # (Auto) 2.4 1.8-7.7 K/uL Lymphocytes # (Auto) 1.8 1.0-4.8 K/uL Monocytes # (Auto) 0.6 0.1-1.0 K/uL Eosinophils # (Auto) 0.12 0.00-0.70 K/uL Basophils # (Auto) 0.05 0.00-0.20 K/uL Absolute Immature Granulocyte (auto 0.01 0-1 K/uL Nucleated Red Blood Cells 0.0 0.0-0.19 % Sodium Level 138 136-145 mmol/L Potassium Level 4.2 3.5-5.1 mmol/L Chloride Level 104 101-111 mmol/L Carbon Dioxide Level 28 21-32 mmol/L Blood Urea Nitrogen 18 7-18 mg/dL Creatinine 1.2 0.5-1.3 mg/dL Glomerular Filtration Rate Calc 71 >90 mL/min Random Glucose 87 70-105 mg/dL Total Calcium 8.3 L 8.5-10.1 mg/dL Total Creatine Kinase 99 21-232 U/L Troponin I High Sensitivity 8.0 4-75 ng/L Iron Level 19 L 65-175 mcg/dL Total Iron Binding Capacity 386 250-450 mcg/dL Percent Iron Saturation 4.9 L 30-44 % Ferritin 9 L 30-400 ng/mL Red Blood Cell Morphology See comments Urine Color COLORLESS YELLOW Urine Appearance CLEAR CLEAR Urine pH 6.0 5.0-8.0 Urine Specific [place] 1.008 1.001-1.031 Urine Protein NEGATIVE NEGATIVE mg/dL Urine Glucose (UA) NEGATIVE NEGATIVE mg/dL Urine Ketones NEGATIVE NEGATIVE mg/dL Urine Occult Blood NEGATIVE NEGATIVE Urine Nitrate NEGATIVE NEGATIVE Urine Bilirubin NEGATIVE NEGATIVE mg/dL Urine Urobilinogen 0.2 0.2-1.0 mg/dL Urine Leukocyte Esterase NEGATIVE NEGATIVE Mery/uL Magnesium Level 2.00 1.80-2.40 mg/dL B-Type Natriuretic Peptide 522 H 0-100 pg/mL Urine Opiates Screen NEGATIVE NEGATIVE Urine Barbiturates Screen NEGATIVE NEGATIVE Urine Phencyclidine Screen NEGATIVE NEGATIVE Urine Amphetamines Screen NEGATIVE NEGATIVE Urine Benzodiazepines Screen NEGATIVE NEGATIVE Urine Cocaine Screen NEGATIVE NEGATIVE Urine Marijuana (THC) Screen NEGATIVE NEGATIVE Current Medications Medications (Trade) Dose Ordered Sig/Teodoro Route PRN Reason Start Time Stop Time Status Last Admin Dose Admin Acetaminophen (TYLenol 325MG TAB) 650 mg Q6H PRN PO MILD PAIN (1-3) 03/10/25 15:30 04/09/25 15:29 Atorvastatin Calcium (LIPItor 40MG) 40 mg HS PO 03/10/25 21:00 04/09/25 20:59 03/10/25 20:13 40 MG Clopidogrel Bisulfate (plaVIX 75MG) 75 mg DAILY PO 03/11/25 09:00 03/11/25 06:44 DC Docusate Sodium (COLace 100MG CAP) 100 mg BID PRN PO CONSTIPATION 03/11/25 11:30 04/10/25 11:29 Furosemide (LASix 20MG TAB) 20 mg DAILY PO 03/11/25 09:00 04/10/25 08:59 03/11/25 09:02 20 MG Iron Sucrose 300 mg/Sodium Chloride 250 ml @ 83 mls/hr DAILY IV 03/11/25 09:00 03/14/25 09:00 03/11/25 11:02 83 MLS/HR Isosorbide Mononitrate (Imdur 30mg Sr) 30 mg Q24H PO 03/10/25 15:30 03/11/25 07:58 DC 03/10/25 15:38 30 MG Isosorbide Mononitrate (Imdur 30mg Sr) 30 mg Q24H PO 03/11/25 09:00 04/10/25 08:59 03/11/25 09:02 30 MG Losartan Potassium (CozAAR 25MG TAB) 25 mg DAILY PO 03/11/25 09:00 04/10/25 08:59 03/11/25 09:02 25 MG Magnesium Sulfate 50 ml @ 0 mls/hr PROTOCOL PRN IV MAGNESIUM PROTOCOL 03/11/25 11:30 04/10/25 11:29 Metoprolol Succinate (TopROL XL) 25 mg DAILY PO 03/11/25 09:00 04/10/25 08:59 03/11/25 09:02 25 MG Nitroglycerin (Nitrostat) 0.4 mg AD PRN SL CHEST PAIN 03/10/25 12:30 04/09/25 12:29 Ondansetron HCl (zoFRAN 4MG INJ) 4 mg Q6H PRN IVP NAUSEA/VOMITING 03/10/25 15:30 04/09/25 15:29 Pantoprazole Sodium (PROTonix 40MG TAB) 40 mg DAILY PO 03/11/25 09:00 04/10/25 08:59 03/11/25 09:02 40 MG Potassium Chloride 100 ml @ 100 mls/hr AD PRN IV POTASSIUM PROTOCOL 03/11/25 11:30 04/10/25 11:29 Potassium Chloride (K-Dur/Klor-Con 20meq) 20 meq AD PRN PO POTASSIUM PROTOCOL 03/11/25 11:30 04/10/25 11:29 Potassium Chloride (KCl 10% Elixir 20meq/15ml) 20 meq AD PRN PO POTASSIUM PROTOCOL 03/11/25 11:30 04/10/25 11:29 Rivaroxaban (Xarelto) 20 mg DAILY PO 03/11/25 09:00 03/11/25 06:44 DC Spironolactone (Aldactone 25mg) 25 mg DAILY PO 03/11/25 09:00 04/10/25 08:59 03/11/25 09:02 25 MG Diagnostics / Radiology: [COPY/PASTE HERE IF NO REPORTS PLEASE DELETE SECTION] Assessment: [Concern for GI bleed Iron deficiency Anemia CAD Pacemaker in place Hypertension ] Plan: Case discussed with Dr. Mccarthy Recommend Cardiac clearance for EGD and colonoscopy. Patient would need to hold xarelto x 2 days, and plavix for 5 days. Recommend continuing with Protonix 40mg po daily. Please call with questions,concerns, and change in clinical status Thank you for this consult. ] JEVON MENDEZ NP Mar 11, 2025 17:33
[2025-03-11] MEDS ORDERED: PHARMACY COMMUNICATION MISC SCH (18:00)
--- NOTE | 2025-03-11 19:00 | NUR ---
PER PATIENT HIS LAST TOOK PLAVIX AND XARELTO ON MARCH 10, 2025.
[2025-03-12] VITALS (7 sets, daily range): BP systolic 104–120; BP diastolic 63–68; PULSE 45–73; RESP 18–20; TEMP 97.9–98.6; O2SAT 96–97
[2025-03-12 04:33] LABS: NUCLEATED RED BLOOD CELLS 0.0 % (0.0-0.19); PLATELET COUNT (AUTO) 233.0 K/uL (130-400); RED BLOOD CELL COUNT(AUTO) 3.75 MIL/uL (4.50-6.20); RED CELL DISTRIBUTION WIDTH 20.7 % (11.0-15.5); WHITE BLOOD COUNT (AUTO) 6.2 K/uL (4.8-10.8)
[2025-03-12 05:08] LABS: ASPARTATE AMINOTRANSFERASE 16.0 U/L (10-37); CREATININE 1.0 mg/dL (0.5-1.3); GLOMERULAR FILTR. RATE CALC 89.0 mL/min (>90); GLUCOSE,RANDOM 95.0 mg/dL (70-105); SODIUM SERUM 138.0 mmol/L (136-145); TOTAL PROTEIN, SERUM 7.0 g/dL (6.0-8.3); UREA NITROGEN, BLOOD 19.0 mg/dL (7-18)
--- NOTE | 2025-03-12 07:45 | PN ---
PROGRESS NOTE PROBLEM LIST: Anemia Atypical chest pain with negative cardiac enzymes x2 Persistent atrial fibrillation on Xarelto anticoagulation History of PTCA and stenting to LAD and RCA March 2024 necessitating clopidogrel therapy now almost at 1 year out INTERIM HISTORY OF PRESENT ILLNESS: The patient has been seen by Gastroenterology and I appreciate their input. Patient did have his clopidogrel and Xarelto stopped after my consultation was performed yesterday morning. Patient has ruled out for any evidence of myocardial necrosis with serial cardiac enzymes. REVIEW OF SYSTEMS: No fever, headache, chest pain, abdominal pain, nausea, vomiting, or diarrhea. VITAL SIGNS Vital Signs Date Time Temp Pulse Resp B/P (MAP) Pulse Ox O2 Delivery O2 Flow Rate FiO2 03/12/25 04:00 98.2 73 18 104/63 97 Room Air 03/11/25 20:00 0 21 Laboratory Tests 03/12/25 04:17 LABS/MEDS Laboratory Tests Test 03/12/25 04:17 White Blood Count 6.2 K/uL (4.8-10.8) Red Blood Count 3.75 MIL/uL (4.50-6.20) L Hemoglobin 9.3 g/dL (14.0-18.0) L Hematocrit 30.4 % (42-54) L Mean Corpuscular Volume 81.1 fL (79-99) Mean Corpuscular Hemoglobin 24.8 pg (27.0-33.0) L Mean Corpuscular Hemoglobin Concent 30.6 g/dL (32.0-36.0) L Red Cell Distribution Width 20.7 % (11.0-15.5) H Platelet Count 233 K/uL (130-400) Mean Platelet Volume 9.9 fL (7.5-10.5) Nucleated Red Blood Cells 0.0 % (0.0-0.19) Sodium Level 138 mmol/L (136-145) Potassium Level 3.9 mmol/L (3.5-5.1) Chloride Level 103 mmol/L (101-111) Carbon Dioxide Level 28 mmol/L (21-32) Blood Urea Nitrogen 19 mg/dL (7-18) H Creatinine 1.0 mg/dL (0.5-1.3) Glomerular Filtration Rate Calc 89 mL/min (>90) Random Glucose 95 mg/dL (70-105) Total Calcium 8.5 mg/dL (8.5-10.1) Magnesium Level 2.00 mg/dL (1.80-2.40) Total Bilirubin 0.5 mg/dL (0.2-1.0) Aspartate Amino Transf (AST/SGOT) 16 U/L (10-37) Alanine Aminotransferase (ALT/SGPT) 27 U/L (12-78) Alkaline Phosphatase 86 U/L (50-136) Total Protein 7.0 g/dL (6.0-8.3) Albumin 3.4 g/dL (3.5-5.0) L Current Medications Nitroglycerin 0.4 mg AD PRN SL; Start 03/10/25 at 12:30; Stop 04/09/25 at 12:29 Pantoprazole Sodium 40 mg DAILY PO Last administered on 03/11/25at 09:02; Start 03/11/25 at 09:00; Stop 04/10/25 at 08:59 Acetaminophen 650 mg Q6H PRN PO; Start 03/10/25 at 15:30; Stop 04/09/25 at 15:29 Ondansetron HCl 4 mg Q6H PRN IVP; Start 03/10/25 at 15:30; Stop 04/09/25 at 15:29 Isosorbide Mononitrate 30 mg Q24H PO Last administered on 03/10/25at 15:38; Start 03/10/25 at 15:30; Stop 03/11/25 at 07:58; Status DC Clopidogrel Bisulfate 75 mg DAILY PO; Start 03/11/25 at 09:00; Stop 03/11/25 at 06:44; Status DC Rivaroxaban 20 mg DAILY PO; Start 03/11/25 at 09:00; Stop 03/11/25 at 06:44; Status DC Metoprolol Succinate 25 mg DAILY PO Last administered on 03/11/25at 09:02; Start 03/11/25 at 09:00; Stop 04/10/25 at 08:59 Atorvastatin Calcium 40 mg HS PO Last administered on 03/11/25at 20:46; Start 03/10/25 at 21:00; Stop 04/09/25 at 20:59 Furosemide 20 mg DAILY PO Last administered on 03/11/25at 09:02; Start 03/11/25 at 09:00; Stop 04/10/25 at 08:59 Losartan Potassium 25 mg DAILY PO Last administered on 03/11/25at 09:02; Start 03/11/25 at 09:00; Stop 04/10/25 at 08:59 Spironolactone 25 mg DAILY PO Last administered on 03/11/25at 09:02; Start 03/11/25 at 09:00; Stop 04/10/25 at 08:59 Iron Sucrose 300 mg/Sodium Chloride 250 ml @ 83 mls/hr DAILY IV Last administered on 03/11/25at 11:02; Start 03/11/25 at 09:00; Stop 03/14/25 at 09:00 Isosorbide Mononitrate 30 mg Q24H PO Last administered on 03/11/25at 09:02; Start 03/11/25 at 09:00; Stop 04/10/25 at 08:59 Docusate Sodium 100 mg BID PRN PO; Start 03/11/25 at 11:30; Stop 04/10/25 at 11:29 Potassium Chloride 100 ml @ 100 mls/hr AD PRN IV; Start 03/11/25 at 11:30; Stop 04/10/25 at 11:29 Potassium Chloride 20 meq AD PRN PO; Start 03/11/25 at 11:30; Stop 04/10/25 at 11:29 Potassium Chloride 20 meq AD PRN PO; Start 03/11/25 at 11:30; Stop 04/10/25 at 11:29 Magnesium Sulfate 50 ml @ 0 mls/hr PROTOCOL PRN IV; Start 03/11/25 at 11:30; Stop 04/10/25 at 11:29 Pharmacy Profile Note 1 each AD MISC; Start 03/11/25 at 18:00; Stop 03/11/25 at 17:48; Status DC PHYSICAL EXAMINATION: GENERAL: No acute distress. HEENT: Normocephalic, atraumatic. CARDIAC: Positive S1 and S2. No murmurs. LUNGS: Clear to auscultation bilaterally. ABDOMEN: Bowel sounds present, soft, nontender. EXTREMITIES: No edema bilaterally. NEUROLOGIC: Cranial nerves 2-12 grossly intact. PSYCHIATRIC: Calm. TELEMETRY: AFib paced backup ASSESSMENT: Anemia PLAN: Patient did have an echocardiogram performed yesterday which revealed his ejection fraction to be normal 55%. From my standpoint patient should be considered low risk to proceed with low risk GI evaluation specifically to include endoscopy and likely colonoscopy. I do not think patient should be discharged until procedures have been completed. Orders will be placed for clearance at low risk. We will follow from afar please call with any questions or problems cardiac-medrano. WILIAM MERCER MD Mar 12, 2025 07:45
--- NOTE | 2025-03-12 09:16 | PN ---
GASTROENTEROLOGY PROGRESS NOTE Date of Visit: Mar 12, 2025 Time of Visit: 09:16 Events / Notes: [[This is a 55-year-old male patient who presents to the emergency room with complaints of chest pressure and chest discomfort for the past week. Patient with past medical history for hypertension, coronary artery disease with multiple stent placements, congestive heart failure with LVEF of 50-55%, chronic atrial fibrillation and pacemaker in place . Patient currently on Xarelto and Plavix. We were consulted for worsening anemia on Xarelto and clopidogrel. WBC of 4.9, hemoglobin 8.4, platelets 216. Iron 19, TIBC 386, 4.9% saturation, and ferritin 9. Chest x-ray with no acute cardiopulmonary findings. Patient's last EGD on 12/04/2020 which showed chronic inactive gastritis. On exam patient is resting in semi-Ott's. In no acute distress. He reports having had chest pain and does the reason for this ER visit. Due to his anemia, it is recommended for EGD and colonoscopy. Information on exam is given informed cardiac clearance would be needed and is recommended patient is off all of Xarelto for 2 days and off Plavix for five days. We will await Cardiology recommendations and clearance. Patient agreed 03/12/25: Cardiac clearance has been given. Xarelto and Plavix have been held. Plan for EGD and colonoscopy for Saturday03/16/25. ] Review of Systems: CONSTITUTIONAL: No malaise or change in sensation of wellbeing. ENMT: No rhinorrhea, otorrhea, sinus pain, ear ache. CARDIOVASCULAR: No angina, palpitations, orthopnea or paroxysmal dyspnea. RESPIRATORY: No SOB. GASTROINTESTINAL: No abdominal pain, nausea, vomiting, diarrhea, hematemesis, melena or change in the patient's habitual bowel movements consistency/number. GENITOURINARY: No dysuria, hematuria or change in bladder continence. MUSCULOSKELETAL: No new muscle pain or decrease in muscular strength. No new joint swelling, redness or tenderness. SKIN: No new rash. Physical Exam: GEN: Awake, alert, oriented in person, time and place, and in no acute distress. HEENT: No sinus tenderness. Tympanic membranes were not examined. No rhinorrhea. Oral pharyngeal mucosa is pink, moist and within normal limits. CHEST: Inspection, palpation and percussion of the chest were unremarkable. Lung auscultation revealed normal breath sounds bilaterally. CARDIAC: PMI is within normal limits. Heart sounds are regular. ABD: Soft, non-tender and not distended. No peritoneal signs on palpation. No organomegaly. Normal bowel sounds. EXT: No cyanosis or clubbing. No edema. SKIN: Intact. No rashes. JOINTS: No evidence of synovitis or acute arthritis. NEURO: Alert and oriented to name, place and person. Cranial nerve examination is unremarkable. No focal motor deficits. Normal speech. Strength is normal. Vital Signs (last 8hr) Date Time Temp Pulse Resp B/P (MAP) Pulse Ox O2 Delivery O2 Flow Rate FiO2 03/12/25 08:00 97.9 48 20 108/68 98 Room Air 03/12/25 04:00 98.2 73 18 104/63 97 Room Air Laboratory: [ ] Laboratory: Test 03/12/25 04:17 03/11/25 03:42 03/10/25 17:47 03/10/25 12:29 Range/Units White Blood Count 6.2 4.8-10.8 K/uL Red Blood Count 3.75 L 4.50-6.20 MIL/uL Hemoglobin 9.3 L 14.0-18.0 g/dL Hematocrit 30.4 L 42-54 % Mean Corpuscular Volume 81.1 79-99 fL Mean Corpuscular Hemoglobin 24.8 L 27.0-33.0 pg Mean Corpuscular Hemoglobin Concent 30.6 L 32.0-36.0 g/dL Red Cell Distribution Width 20.7 H 11.0-15.5 % Platelet Count 233 130-400 K/uL Mean Platelet Volume 9.9 7.5-10.5 fL Nucleated Red Blood Cells 0.0 0.0-0.19 % Sodium Level 138 136-145 mmol/L Potassium Level 3.9 3.5-5.1 mmol/L Chloride Level 103 101-111 mmol/L Carbon Dioxide Level 28 21-32 mmol/L Blood Urea Nitrogen 19 H 7-18 mg/dL Creatinine 1.0 0.5-1.3 mg/dL Glomerular Filtration Rate Calc 89 >90 mL/min Random Glucose 95 70-105 mg/dL Total Calcium 8.5 8.5-10.1 mg/dL Magnesium Level 2.00 1.80-2.40 mg/dL Total Bilirubin 0.5 0.2-1.0 mg/dL Aspartate Amino Transf (AST/SGOT) 16 10-37 U/L Alanine Aminotransferase (ALT/SGPT) 27 12-78 U/L Alkaline Phosphatase 86 50-136 U/L Total Protein 7.0 6.0-8.3 g/dL Albumin 3.4 L 3.5-5.0 g/dL Immature Granulocyte % (Auto) 0.2 0-1 % Neutrophils (%) (Auto) 47.8 40.0-77.0 % Lymphocytes (%) (Auto) 36.0 21.0-51.0 % Monocytes (%) (Auto) 12.6 3.0-13.0 % Eosinophils (%) (Auto) 2.4 0.0-8.0 % Basophils (%) (Auto) 1.0 0.0-5.0 % Neutrophils # (Auto) 2.4 1.8-7.7 K/uL Lymphocytes # (Auto) 1.8 1.0-4.8 K/uL Monocytes # (Auto) 0.6 0.1-1.0 K/uL Eosinophils # (Auto) 0.12 0.00-0.70 K/uL Basophils # (Auto) 0.05 0.00-0.20 K/uL Absolute Immature Granulocyte (auto 0.01 0-1 K/uL Total Creatine Kinase 99 21-232 U/L Troponin I High Sensitivity 8.0 4-75 ng/L Iron Level 19 L 65-175 mcg/dL Total Iron Binding Capacity 386 250-450 mcg/dL Percent Iron Saturation 4.9 L 30-44 % Ferritin 9 L 30-400 ng/mL Red Blood Cell Morphology See comments Urine Color COLORLESS YELLOW Urine Appearance CLEAR CLEAR Urine pH 6.0 5.0-8.0 Urine Specific [place] 1.008 1.001-1.031 Urine Protein NEGATIVE NEGATIVE mg/dL Urine Glucose (UA) NEGATIVE NEGATIVE mg/dL Urine Ketones NEGATIVE NEGATIVE mg/dL Urine Occult Blood NEGATIVE NEGATIVE Urine Nitrate NEGATIVE NEGATIVE Urine Bilirubin NEGATIVE NEGATIVE mg/dL Urine Urobilinogen 0.2 0.2-1.0 mg/dL Urine Leukocyte Esterase NEGATIVE NEGATIVE Mery/uL B-Type Natriuretic Peptide 522 H 0-100 pg/mL Urine Opiates Screen NEGATIVE NEGATIVE Urine Barbiturates Screen NEGATIVE NEGATIVE Urine Phencyclidine Screen NEGATIVE NEGATIVE Urine Amphetamines Screen NEGATIVE NEGATIVE Urine Benzodiazepines Screen NEGATIVE NEGATIVE Urine Cocaine Screen NEGATIVE NEGATIVE Urine Marijuana (THC) Screen NEGATIVE NEGATIVE Current Medications Medications (Trade) Dose Ordered Sig/Teodoro Route PRN Reason Start Time Stop Time Status Last Admin Dose Admin Acetaminophen (TYLenol 325MG TAB) 650 mg Q6H PRN PO MILD PAIN (1-3) 03/10/25 15:30 04/09/25 15:29 Atorvastatin Calcium (LIPItor 40MG) 40 mg HS PO 03/10/25 21:00 04/09/25 20:59 03/11/25 20:46 40 MG Clopidogrel Bisulfate (plaVIX 75MG) 75 mg DAILY PO 03/11/25 09:00 03/11/25 06:44 DC Docusate Sodium (COLace 100MG CAP) 100 mg BID PRN PO CONSTIPATION 03/11/25 11:30 04/10/25 11:29 03/12/25 09:11 100 MG Furosemide (LASix 20MG TAB) 20 mg DAILY PO 03/11/25 09:00 04/10/25 08:59 03/12/25 09:11 20 MG Iron Sucrose 300 mg/Sodium Chloride 250 ml @ 83 mls/hr DAILY IV 03/11/25 09:00 03/14/25 09:00 03/12/25 09:11 83 MLS/HR Isosorbide Mononitrate (Imdur 30mg Sr) 30 mg Q24H PO 03/10/25 15:30 03/11/25 07:58 DC 03/10/25 15:38 30 MG Isosorbide Mononitrate (Imdur 30mg Sr) 30 mg Q24H PO 03/11/25 09:00 04/10/25 08:59 03/12/25 09:11 30 MG Losartan Potassium (CozAAR 25MG TAB) 25 mg DAILY PO 03/11/25 09:00 04/10/25 08:59 03/12/25 09:11 25 MG Magnesium Sulfate 50 ml @ 0 mls/hr PROTOCOL PRN IV MAGNESIUM PROTOCOL 03/11/25 11:30 04/10/25 11:29 Metoprolol Succinate (TopROL XL) 25 mg DAILY PO 03/11/25 09:00 04/10/25 08:59 03/12/25 09:11 25 MG Nitroglycerin (Nitrostat) 0.4 mg AD PRN SL CHEST PAIN 03/10/25 12:30 04/09/25 12:29 Ondansetron HCl (zoFRAN 4MG INJ) 4 mg Q6H PRN IVP NAUSEA/VOMITING 03/10/25 15:30 04/09/25 15:29 Pantoprazole Sodium (PROTonix 40MG TAB) 40 mg DAILY PO 03/11/25 09:00 04/10/25 08:59 03/12/25 09:11 40 MG Pharmacy Profile Note (Pharmacy Communication) 1 each AD MISC 03/11/25 18:00 03/11/25 17:48 DC Potassium Chloride 100 ml @ 100 mls/hr AD PRN IV POTASSIUM PROTOCOL 03/11/25 11:30 04/10/25 11:29 Potassium Chloride (K-Dur/Klor-Con 20meq) 20 meq AD PRN PO POTASSIUM PROTOCOL 03/11/25 11:30 04/10/25 11:29 Potassium Chloride (KCl 10% Elixir 20meq/15ml) 20 meq AD PRN PO POTASSIUM PROTOCOL 03/11/25 11:30 04/10/25 11:29 Rivaroxaban (Xarelto) 20 mg DAILY PO 03/11/25 09:00 03/11/25 06:44 DC Spironolactone (Aldactone 25mg) 25 mg DAILY PO 03/11/25 09:00 04/10/25 08:59 03/12/25 09:11 25 MG Diagnostics / Radiology: [COPY/PASTE HERE IF NO REPORTS PLEASE DELETE SECTION] Assessment: [Concern for GI bleed Iron deficiency Anemia CAD Pacemaker in place Hypertension ] Plan: Case discussed with Dr. Mccarthy Cardiac Clearance obtained. Patient is at low risk for procedure. Plan for EGD and colonoscopy on Saturday03/16/25 Clear liquid diet beginning Saturday Night. Begin colon prep on Saturday at 1200 then NPO after midnight Recommend continuing with Protonix 40mg po daily. Please call with questions,concerns, and change in clinical status Thank you for this consult. ] JEVON MENDEZ [employer] Mar 12, 2025 09:16
[2025-03-12] MEDS ORDERED: COMPOUND IV MISC 1 EACH IVSOLN MISC PRN (13:00)
--- NOTE | 2025-03-12 13:02 | NUR ---
REPORT/DOWNGRADE ATTEMPTED TO CALL REPORT ON PATIENT GOING TO ROOM 421. NURSE WITH OTHER PATIENT AND IS TO CALL BACK FOR REPORT. PATIENT IS AWARE THAT HE IS TO BE TRANSFERRED TO MED/TELE ROOM.
--- NOTE | 2025-03-12 13:28 | NUR ---
REPORT/DOWNGRADE REPORT GIVEN TO TAMIKO NURSE ON MED/TELEMETRY FLOOR. PATIENT'S BELONGINGS GATHERED AND GIVEN BACK TO THE PATIENT. PATIENT TO BE TRANSFERRED TO ROOM 421.
--- NOTE | 2025-03-12 14:20 | NUR ---
UNIT ARRIVAL RECEIVED PATIENT FROM ICU. PATIENT AWAKE, ALERT AND ORIENTED. NO SIGNS OF DISTRESS NOTED. PATIENT WITH TELE #[id number]. PATIENT REPORTS NO PAIN AT THIS TIME. CALL LIGHT WITHIN REACH. BED LOCKED AND IN LOWEST POSITION.
--- NOTE | 2025-03-12 14:22 | PN ---
[facility] PROGRESS NOTE Date of Service: Mar 12, 2025 Time of Service: 14:11 SUBJECTIVE: This is a 55-year-old male with multiple cardiac history including coronary artery disease with prior history of PCI with KITTY placement to proximal LAD, proximal RCA, and mid to distal RCA in 03/2024, history of ischemic cardiomyopathy, chronic systolic congestive heart failure with improved LV EF of 45-50%, history of AICD placement in 2018, history of chronic atrial fibrillation maintained on anticoagulation with Xarelto, history of left atrial appendage thrombus, hypertension who presented to the ER for further evaluation of substernal chest pain. Patient states that symptoms started last night and has been progressive in intensity. Pain was involving the midsternal/substernal region and was moderate in intensity. Today, he noticed that he was having nonresolving chest pain when he woke up this morning. Denies any trauma to the chest. Patient is followed by Dr. Mendoza with Cardiology. Reports being compliant with antiplatelet therapy with Plavix 75 mg daily as well as Xarelto 20 mg daily. Patient does report that he recently ran out of isosorbide mononitrate and did not take his morning dose today. Patient denies any fevers, chills, denies any nausea, vomiting, or abdominal pain. On presentation, patient was noted to be afebrile with T-max of 98.1 F, heart rate of 70, blood pressure 121/81. Labs on presentation showed WBC count of 6900, hemoglobin of 8.7, platelet count of [id number]. BMP on presentation showed sodium of 136, potassium 4.2, BUN of 18, creatinine 0.9, high sensitivity cardiac troponin which was noted to be negative x2, BNP of 522. 03/11/2025: The patient is alert, awake, and oriented. As the patient only speaks Kinyarwanda, rate school fundraising director was used to converse with the patient. The patient did not complain of any substernal chest pains. Troponin was trended 4 times and was negative. Patient's BNP is 522, therefore an echocardiogram was ordered. Patient's hemoglobin today is 8.4 iron on panel shows iron deficiency anemia with transferrin saturation of 4.9%, therefore the patient was transfused 1 unit of iron sucrose. Patient's home medication include celecoxib, isosorbide mononitrate, metoprolol succinate, atorvastatin, pantoprazole, clopidogrel, furosemide, losartan, rivaroxaban, and spironolactone . The patient's celecoxib was stopped on admission due to the antiplatelet and anticoagulation therapy. Cardiology saw the patient and recommended to focus on patient's underlying progressive anemia which has been ongoing and worsening over the last year. According to Cardiology, the patient has required Xarelto therapy for many years but did not have any anemia while on this therapy and once clopidogrel was initiated in March 2024, the hemoglobin started showing a downward trend. As per cardiology's, no cardiac workup is required at this time but they recommended gastroenterology consult placed a consult for [place] [facility] to assist with patient's management and care. Meanwhile, Cardiology stopped the patient's clopidogrel and Xarelto until gastroenterology make recommendations. 03/12/2025: The patient is alert, awake, and oriented. As the patient only speaks Kinyarwanda, rate school fundraising director was used to converse with the patient. The patient did not complain of any substernal chest pains. Gastroenterology saw the patient yesterday and stated that they need cardiology clearance for EGD and colonoscopy. Cardiology saw the patient today and gave the clearance for EGD and colonoscopy. The patient is planned for EGD and colonoscopy on Saturday. REVIEW OF SYSTEMS CONSTITUTIONAL: Denies fevers, chills, or night sweats. No unintentional weight loss reported. NEUROLOGICAL: Denies headache, amaurosis fugax, motor weakness, sensory deficit, vertigo/spinning sensation, gait abnormalities, or tremors. ENT: No hearing loss, otalgia, otorrhea, rhinitis, rhinorrhea, hoarseness, or sore throat. CARDIOVASCULAR: Substernal chest pain PULMONARY: Denies any shortness of breath, cough, phlegm/sputum, hemoptysis, pleuritic chest pain. SLEEP: Denies morning headaches, daytime somnolence or napping. Denies difficul ty falling asleep, staying asleep, waking from sleep. Denies knowledge of snoring. GASTROINTESTINAL: Denies any type of dysphagia to either liquids or solids. Denies nausea, vomiting, pyrosis, early satiety, abdominal pain, diarrhea, constipation, or changes in stool consistency or caliber. Denies coffee-ground emesis, hematemesis, hematochezia, or melanotic stools. GENITOURINARY: Denies frequency, urgency, nocturia, hematuria or incontinence (Storage/Irritative symptoms.) Low urinary stream, straining to void, urinary intermittency or hesitancy, splitting of the voiding stream, terminal dribbling. ENDOCRINOLOGIC: Denies polyuria, polydipsia, polyphagia or heat/cold intole rances. PHYSICAL EXAM GENERAL APPEARANCE: The patient is awake, alert, and oriented, in no acute cardiopulmonary distress. NEUROLOGICAL: Cranial nerves II-XII grossly intact. Motor is 5/5 in bilateral upper and lower extremities proximal to distal. No sensory deficits. HEENT: Face is symmetric. Pupils are equal and reactive. Extraocular movements are intact. NECK: Supple. No JVD. No thyromegaly. No submental, submandibular, pre- /postauricular, occipital or supraclavicular lymphadenopathy. CHEST: Normal chest expansion. No Telemetry. LUNGS: Absence of any rales, rhonchi or any wheezing. CARDIOVASCULAR: Regular. S1 and S2 normal. No appreciable rubs, murmurs or gallops. ABDOMEN: Soft, nontender, and nondistended. There is no rebound, voluntary guarding, or rigidity. : Deferred. No Mtz. EXTREMITIES: Non-edematous and not cyanotic. No clubbing. Good capillary refill. SKIN: No skin breakdown. Vital Signs (last 8hr) Date Time Temp Pulse Resp B/P (MAP) Pulse Ox O2 Delivery O2 Flow Rate FiO2 03/12/25 12:00 98.6 45 20 110/65 98 Room Air 03/12/25 08:00 97.9 48 20 108/68 98 Room Air LABS: Laboratory: Test 03/12/25 04:17 03/11/25 03:42 03/10/25 17:47 Range/Units White Blood Count 6.2 4.8-10.8 K/uL Red Blood Count 3.75 L 4.50-6.20 MIL/uL Hemoglobin 9.3 L 14.0-18.0 g/dL Hematocrit 30.4 L 42-54 % Mean Corpuscular Volume 81.1 79-99 fL Mean Corpuscular Hemoglobin 24.8 L 27.0-33.0 pg Mean Corpuscular Hemoglobin Concent 30.6 L 32.0-36.0 g/dL Red Cell Distribution Width 20.7 H 11.0-15.5 % Platelet Count 233 130-400 K/uL Mean Platelet Volume 9.9 7.5-10.5 fL Nucleated Red Blood Cells 0.0 0.0-0.19 % Sodium Level 138 136-145 mmol/L Potassium Level 3.9 3.5-5.1 mmol/L Chloride Level 103 101-111 mmol/L Carbon Dioxide Level 28 21-32 mmol/L Blood Urea Nitrogen 19 H 7-18 mg/dL Creatinine 1.0 0.5-1.3 mg/dL Glomerular Filtration Rate Calc 89 >90 mL/min Random Glucose 95 70-105 mg/dL Total Calcium 8.5 8.5-10.1 mg/dL Magnesium Level 2.00 1.80-2.40 mg/dL Total Bilirubin 0.5 0.2-1.0 mg/dL Aspartate Amino Transf (AST/SGOT) 16 10-37 U/L Alanine Aminotransferase (ALT/SGPT) 27 12-78 U/L Alkaline Phosphatase 86 50-136 U/L Total Protein 7.0 6.0-8.3 g/dL Albumin 3.4 L 3.5-5.0 g/dL Immature Granulocyte % (Auto) 0.2 0-1 % Neutrophils (%) (Auto) 47.8 40.0-77.0 % Lymphocytes (%) (Auto) 36.0 21.0-51.0 % Monocytes (%) (Auto) 12.6 3.0-13.0 % Eosinophils (%) (Auto) 2.4 0.0-8.0 % Basophils (%) (Auto) 1.0 0.0-5.0 % Neutrophils # (Auto) 2.4 1.8-7.7 K/uL Lymphocytes # (Auto) 1.8 1.0-4.8 K/uL Monocytes # (Auto) 0.6 0.1-1.0 K/uL Eosinophils # (Auto) 0.12 0.00-0.70 K/uL Basophils # (Auto) 0.05 0.00-0.20 K/uL Absolute Immature Granulocyte (auto 0.01 0-1 K/uL Total Creatine Kinase 99 21-232 U/L Troponin I High Sensitivity 8.0 4-75 ng/L Iron Level 19 L 65-175 mcg/dL Total Iron Binding Capacity 386 250-450 mcg/dL Percent Iron Saturation 4.9 L 30-44 % Ferritin 9 L 30-400 ng/mL Current Medications Medications (Trade) Dose Ordered Sig/Teodoro Route PRN Reason Start Time Stop Time Status Last Admin Dose Admin Acetaminophen (TYLenol 325MG TAB) 650 mg Q6H PRN PO MILD PAIN (1-3) 03/10/25 15:30 04/09/25 15:29 Atorvastatin Calcium (LIPItor 40MG) 40 mg HS PO 03/10/25 21:00 04/09/25 20:59 03/11/25 20:46 40 MG Clopidogrel Bisulfate (plaVIX 75MG) 75 mg DAILY PO 03/11/25 09:00 03/11/25 06:44 DC Docusate Sodium (COLace 100MG CAP) 100 mg BID PRN PO CONSTIPATION 03/11/25 11:30 04/10/25 11:29 03/12/25 09:11 100 MG Furosemide (LASix 20MG TAB) 20 mg DAILY PO 03/11/25 09:00 04/10/25 08:59 03/12/25 09:11 20 MG Iron Sucrose 300 mg/Sodium Chloride 250 ml @ 83 mls/hr DAILY IV 03/11/25 09:00 03/14/25 09:00 03/12/25 09:11 83 MLS/HR Isosorbide Mononitrate (Imdur 30mg Sr) 30 mg Q24H PO 03/10/25 15:30 03/11/25 07:58 DC 03/10/25 15:38 30 MG Isosorbide Mononitrate (Imdur 30mg Sr) 30 mg Q24H PO 03/11/25 09:00 04/10/25 08:59 03/12/25 09:11 30 MG Losartan Potassium (CozAAR 25MG TAB) 25 mg DAILY PO 03/11/25 09:00 04/10/25 08:59 03/12/25 09:11 25 MG Magnesium Sulfate 50 ml @ 0 mls/hr PROTOCOL PRN IV MAGNESIUM PROTOCOL 03/11/25 11:30 04/10/25 11:29 Metoprolol Succinate (TopROL XL) 25 mg DAILY PO 03/11/25 09:00 04/10/25 08:59 03/12/25 09:11 25 MG Nitroglycerin (Nitrostat) 0.4 mg AD PRN SL CHEST PAIN 03/10/25 12:30 04/09/25 12:29 Ondansetron HCl (zoFRAN 4MG INJ) 4 mg Q6H PRN IVP NAUSEA/VOMITING 03/10/25 15:30 04/09/25 15:29 Pantoprazole Sodium (PROTonix 40MG TAB) 40 mg DAILY PO 03/11/25 09:00 04/10/25 08:59 03/12/25 09:11 40 MG Pharmacy Profile Note (Pharmacy Communication) 1 each AD MISC 03/11/25 18:00 03/11/25 17:48 DC Potassium Chloride 100 ml @ 100 mls/hr AD PRN IV POTASSIUM PROTOCOL 03/11/25 11:30 04/10/25 11:29 Potassium Chloride (K-Dur/Klor-Con 20meq) 20 meq AD PRN PO POTASSIUM PROTOCOL 03/11/25 11:30 04/10/25 11:29 Potassium Chloride (KCl 10% Elixir 20meq/15ml) 20 meq AD PRN PO POTASSIUM PROTOCOL 03/11/25 11:30 04/10/25 11:29 Rivaroxaban (Xarelto) 20 mg DAILY PO 03/11/25 09:00 03/11/25 06:44 DC Spironolactone (Aldactone 25mg) 25 mg DAILY PO 03/11/25 09:00 04/10/25 08:59 03/12/25 09:11 25 MG DIAGNOSTICS / RADIOLOGY: PATIENT: MARY GILES MR#: [id number] : 1970 SEX: M AGE: 55 LOCATION: 2DH ORDER 1133 STATUS: ADM IN REPORT#: [id number] SERVICE 1124 REASON: Substernal Chest pain ORDERING PHYSICIAN: ROX GORDON MD PROCEDURE: ECHO CMP - ECHO 2-D COMPLETE APPROVED REPORT EXAM: Two-dimensional and M-mode echocardiogram with Doppler and color Doppler. INDICATION ICD: Substernal chest pain 2D Dimensions RVDd 4.1 cm LVEF(%) 63.1 (>50%) LVED Vol(simp.) 97.8 mL IVSd 0.9 (0.7-1.1cm) FS(%) 34 % LVES Vol(simp.) 51.0 mL LVDd 5.2 (3.8-5.6cm) LA (2D) 4.6 (1.6-4.0cm) LVEF(%, simp.) 48 % PWd 1.0 (0.7-1.1cm) Ao Root(2D) 2.7 (2.0-3.7cm) LA ESV INDEX (BP) 49.55 mL/m2 LVDs 3.4 (2.5-4.0cm) LVOT diam 2.4 (1.8-2.4cm) IVC diam 1.5 cm Deformation Strain Apical 4 -12.6 % Apical 2 -16.6 % Apical 3 -11.8 % Global Strain -13.7 % M-Mode Dimensions EPSS 1.5 cm LA (MM) 4.7 (1.6-4.0cm) Ao Root(MM) 3.3 (2.0-3.7cm) Aortic Valve AoV Vmax 1.7 m/s Ao Peak GR 11.9 mmHg LVOT Vmax 1.1 m/s AoV VTI 0.3 m Ao Mean GR 5.9 mmHg LVOT VTI 0.23 m LOVE (VMAX) 2.73 cm2 Al P1/2T 975 ms LOVE (VTI) 3.1 cm2 Mitral Valve MV E Vmax 76.1 cm/s DECEL Time 206 ms MV A Vmax 23.8 cm/s P 1/2 T 52 ms E/A ratio 3.2 MVA (PHT) 4.2 cm2 TDI E/E' Medial 9.9 E/E' Lateral 6.8 Medial E' Peak V 7.72 cm/s Lateral E' Peak V 11.11 cm/s Pulmonary Valve PV Vmax 1.2 m/s PV VTI 0.25 m PV Mean GR 3.1 mmHg PV Peak GR 5.9 mmHg Tricuspid Valve TR Vmax 2.3 m/s RAP (EST) 3 mmHg RVSP 24.0 mmHg TR Peak GR 21.0 mmHg Left Ventricle The left ventricle is normal size. Global strain of -14%. There is normal left ventricular wall thickness. LVEF is 50-55%. The LV diastolic function was unable to be assessed due to atrial arrhythmia. Right Ventricle The right ventricle is boderline dilated. The right ventricular systolic function is normal. Atria The left atrium is severely dilated. LASVI 50mL/m The right atrium is severely dilated. Aortic Valve The aortic valve is normal in structure. Trace of aortic regurgitation is prese nt. There is no aortic valvular stenosis. Mitral Valve The mitral valve is normal in structure. There is no mitral valve regurgitation noted. There is no mitral valve stenosis. Tricuspid Valve The tricuspid valve is normal in structure. There is mild tricuspid valve regurgitation noted. Pulmonic Valve The pulmonary valve is normal in structure. There is no pulmonic valvular regu rgitation. Great Vessels The aortic root is normal in size. The IVC is normal in size and collapses >50% with inspiration. Pericardium There is no pericardial effusion. Other Information Quality : Adequate Conclusion LVEF is 50-55%. Global strain of -14%. Trace of aortic regurgitation is present. DICTATED BY: FREDERIC LOPEZ MD DATE: 03/11/25 1353 ELECTRONICALLY SIGNED BY: FREDERIC LOPEZ MD DATE: 03/11/25 1604 ASSESSMENT: Chest pain, POA, rule out unstable angina/ACS History of multivessel coronary artery disease with prior history of PCI to Proximal LAD, proximal RCA, mid to distal RCA in 03/2024, POA History of ischemic cardiomyopathy, POA History of atrial fibrillation, POA History of chronic anticoagulation with Xarelto, POA Chronic anemia, baseline hemoglobin of 8-9 this year in 2024, POA History of ICD placement, POA PLAN: Chest pain, POA, rule out unstable angina/ACS Troponin was trended 4 times and was negative (7,8,7.3,8) Patient's BNP is 522, therefore an echocardiogram was ordered. Home medication include celecoxib, isosorbide mononitrate, metoprolol succinate, atorvastatin, pantoprazole, clopidogrel, furosemide, losartan, rivaroxaban, and spironolactone. Celecoxib was stopped on admission due to the antiplatelet and anticoagulation therapy. Cardiology stopped the patient's clopidogrel and Xarelto until gastroenterology make recommendations. Echo showed LVEF 50-55% No cardiac workup is required at this time Maintain potassium > 4 and magnesium > 2 Unspecified Anemia Hemoglobin is trending up (9.3 > 8.4) Iron panel shows iron deficiency anemia with transferrin saturation of 4.9%, therefore the patient was transfused 1 unit of iron sucrose yesterday. Transfuse 1 unit of iron sucrose today. Monitor H & H. Cardiology recommended to focus on patient's underlying progressive anemia which has been ongoing and worsening over the last year. According to Cardiology, the patient has required Xarelto therapy for many years but did not have any anemia while on this therapy and once clopidogrel was initiated in March 2024, the hemoglobin started showing a downward trend. Gastroenterology consulted. Planned EGD and colonoscopy on Saturday after Cardiology cleared the patient for procedure with low risk today. Ordered stool for occult blood PHYSICIAN STATEMENT I was present with the resident during the History and Physical exam and I have reviewed the resident's note. This case was discussed with the resident and I agree with the history, physical exam and medical decision making as documented. Additions/exceptions/observations were directly added to the notes. Bonilla Lewis SYED M MD Mar 12, 2025 14:22
[2025-03-13] VITALS (7 sets, daily range): BP systolic 102–125; BP diastolic 59–76; PULSE 58–66; RESP 16–19; TEMP 97.8–98.4; O2SAT 98
[2025-03-13 05:12] LABS: NUCLEATED RED BLOOD CELLS 0.0 % (0.0-0.19); PLATELET COUNT (AUTO) 236.0 K/uL (130-400); RED BLOOD CELL COUNT(AUTO) 3.79 MIL/uL (4.50-6.20); RED CELL DISTRIBUTION WIDTH 21.0 % (11.0-15.5); WHITE BLOOD COUNT (AUTO) 5.7 K/uL (4.8-10.8)
[2025-03-13 05:25] LABS: CREATININE 1.0 mg/dL (0.5-1.3); GLOMERULAR FILTR. RATE CALC 89.0 mL/min (>90); GLUCOSE,RANDOM 104.0 mg/dL (70-105); SODIUM SERUM 137.0 mmol/L (136-145); UREA NITROGEN, BLOOD 24.0 mg/dL (7-18)
--- NOTE | 2025-03-13 10:56 | PN ---
[facility] PROGRESS NOTE Date of Service: Mar 13, 2025 Time of Service: 10:54 SUBJECTIVE: This is a 55-year-old male with multiple cardiac history including coronary artery disease with prior history of PCI with KITTY placement to proximal LAD, proximal RCA, and mid to distal RCA in 03/2024, history of ischemic cardiomyopathy, chronic systolic congestive heart failure with improved LV EF of 45-50%, history of AICD placement in 2018, history of chronic atrial fibrillation maintained on anticoagulation with Xarelto, history of left atrial appendage thrombus, hypertension who presented to the ER for further evaluation of substernal chest pain. Patient states that symptoms started last night and has been progressive in intensity. Pain was involving the midsternal/substernal region and was moderate in intensity. Today, he noticed that he was having nonresolving chest pain when he woke up this morning. Denies any trauma to the chest. Patient is followed by Dr. Mendoza with Cardiology. Reports being compliant with antiplatelet therapy with Plavix 75 mg daily as well as Xarelto 20 mg daily. Patient does report that he recently ran out of isosorbide mononitrate and did not take his morning dose today. Patient denies any fevers, chills, denies any nausea, vomiting, or abdominal pain. On presentation, patient was noted to be afebrile with T-max of 98.1 F, heart rate of 70, blood pressure 121/81. Labs on presentation showed WBC count of 6900, hemoglobin of 8.7, platelet count of [id number]. BMP on presentation showed sodium of 136, potassium 4.2, BUN of 18, creatinine 0.9, high sensitivity cardiac troponin which was noted to be negative x2, BNP of 522. 03/11/2025: The patient is alert, awake, and oriented. As the patient only speaks Italian, rate hand stripper was used to converse with the patient. The patient did not complain of any substernal chest pains. Troponin was trended 4 times and was negative. Patient's BNP is 522, therefore an echocardiogram was ordered. Patient's hemoglobin today is 8.4 iron on panel shows iron deficiency anemia with transferrin saturation of 4.9%, therefore the patient was transfused 1 unit of iron sucrose. Patient's home medication include celecoxib, isosorbide mononitrate, metoprolol succinate, atorvastatin, pantoprazole, clopidogrel, furosemide, losartan, rivaroxaban, and spironolactone . The patient's celecoxib was stopped on admission due to the antiplatelet and anticoagulation therapy. Cardiology saw the patient and recommended to focus on patient's underlying progressive anemia which has been ongoing and worsening over the last year. According to Cardiology, the patient has required Xarelto therapy for many years but did not have any anemia while on this therapy and once clopidogrel was initiated in March 2024, the hemoglobin started showing a downward trend. As per cardiology's, no cardiac workup is required at this time but they recommended gastroenterology consult placed a consult for [place] [facility] to assist with patient's management and care. Meanwhile, Cardiology stopped the patient's clopidogrel and Xarelto until gastroenterology make recommendations. 03/12/2025: The patient is alert, awake, and oriented. As the patient only speaks Italian, rate hand stripper was used to converse with the patient. The patient did not complain of any substernal chest pains. Gastroenterology saw the patient yesterday and stated that they need cardiology clearance for EGD and colonoscopy. Cardiology saw the patient today and gave the clearance for EGD and colonoscopy. The patient is planned for EGD and colonoscopy on Saturday. 03/13/2025: The patient is alert, awake, and oriented. As the patient only speaks Italian, rate hand stripper was used to converse with the patient. The patient did not complain of any substernal chest pains. The patient is planned for EGD and colonoscopy on Saturday. REVIEW OF SYSTEMS CONSTITUTIONAL: Denies fevers, chills, or night sweats. No unintentional weight loss reported. NEUROLOGICAL: Denies headache, amaurosis fugax, motor weakness, sensory deficit, vertigo/spinning sensation, gait abnormalities, or tremors. ENT: No hearing loss, otalgia, otorrhea, rhinitis, rhinorrhea, hoarseness, or sore throat. CARDIOVASCULAR: Substernal chest pain PULMONARY: Denies any shortness of breath, cough, phlegm/sputum, hemoptysis, pleuritic chest pain. SLEEP: Denies morning headaches, daytime somnolence or napping. Denies difficulty falling asleep, staying asleep, waking from sleep. Denies knowledge of snoring. GASTROINTESTINAL: Denies any type of dysphagia to either liquids or solids. Denies nausea, vomiting, pyrosis, early satiety, abdominal pain, diarrhea, constipation, or changes in stool consistency or caliber. Denies coffee-ground emesis, hematemesis, hematochezia, or melanotic stools. GENITOURINARY: Denies frequency, urgency, nocturia, hematuria or incontinence (Storage/Irritative symptoms.) Low urinary stream, straining to void, urinary intermittency or hesitancy, splitting of the voiding stream, terminal dribbling. ENDOCRINOLOGIC: Denies polyuria, polydipsia, polyphagia or heat/cold intolerances. PHYSICAL EXAM GENERAL APPEARANCE: The patient is awake, alert, and oriented, in no acute cardiopulmonary distress. NEUROLOGICAL: Cranial nerves II-XII grossly intact. Motor is 5/5 in bilateral upper and lower extremities proximal to distal. No sensory deficits. HEENT: Face is symmetric. Pupils are equal and reactive. Extraocular movements are intact. NECK: Supple. No JVD. No thyromegaly. No submental, submandibular, pre- /postauricular, occipital or supraclavicular lymphadenopathy. CHEST: Normal chest expansion. No Telemetry. LUNGS: Absence of any rales, rhonchi or any wheezing. CARDIOVASCULAR: Regular. S1 and S2 normal. No appreciable rubs, murmurs or gallops. ABDOMEN: Soft, nontender, and nondistended. There is no rebound, voluntary guarding, or rigidity. : Deferred. No Mtz. EXTREMITIES: Non-edematous and not cyanotic. No clubbing. Good capillary refill. SKIN: No skin breakdown. Vital Signs (last 8hr) Date Time Temp Pulse Resp B/P (MAP) Pulse Ox O2 Delivery O2 Flow Rate FiO2 03/13/25 09:09 98 Room Air* 0 21 03/13/25 08:00 97.9 58 18 102/64 98 Room Air 03/13/25 04:15 97.9 58 18 125/76 96 Room Air LABS: Laboratory: Test 03/13/25 04:47 03/12/25 04:17 Range/Units White Blood Count 5.7 4.8-10.8 K/uL Red Blood Count 3.79 L 4.50-6.20 MIL/uL Hemoglobin 9.3 L 14.0-18.0 g/dL Hematocrit 31.6 L 42-54 % Mean Corpuscular Volume 83.4 79-99 fL Mean Corpuscular Hemoglobin 24.5 L 27.0-33.0 pg Mean Corpuscular Hemoglobin Concent 29.4 L 32.0-36.0 g/dL Red Cell Distribution Width 21.0 H 11.0-15.5 % Platelet Count 236 130-400 K/uL Mean Platelet Volume 10.2 7.5-10.5 fL Nucleated Red Blood Cells 0.0 0.0-0.19 % Sodium Level 137 136-145 mmol/L Potassium Level 3.9 3.5-5.1 mmol/L Chloride Level 103 101-111 mmol/L Carbon Dioxide Level 28 21-32 mmol/L Blood Urea Nitrogen 24 H 7-18 mg/dL Creatinine 1.0 0.5-1.3 mg/dL Glomerular Filtration Rate Calc 89 >90 mL/min Random Glucose 104 70-105 mg/dL Total Calcium 8.8 8.5-10.1 mg/dL Magnesium Level 2.00 1.80-2.40 mg/dL Total Bilirubin 0.5 0.2-1.0 mg/dL Aspartate Amino Transf (AST/SGOT) 16 10-37 U/L Alanine Aminotransferase (ALT/SGPT) 27 12-78 U/L Alkaline Phosphatase 86 50-136 U/L Total Protein 7.0 6.0-8.3 g/dL Albumin 3.4 L 3.5-5.0 g/dL Current Medications Medications (Trade) Dose Ordered Sig/Teodoro Route PRN Reason Start Time Stop Time Status Last Admin Dose Admin Acetaminophen (TYLenol 325MG TAB) 650 mg Q6H PRN PO MILD PAIN (1-3) 03/10/25 15:30 04/09/25 15:29 Atorvastatin Calcium (LIPItor 40MG) 40 mg HS PO 03/10/25 21:00 04/09/25 20:59 03/12/25 20:23 40 MG Clopidogrel Bisulfate (plaVIX 75MG) 75 mg DAILY PO 03/11/25 09:00 03/11/25 06:44 DC Docusate Sodium (COLace 100MG CAP) 100 mg BID PRN PO CONSTIPATION 03/11/25 11:30 04/10/25 11:29 03/12/25 09:11 100 MG Furosemide (LASix 20MG TAB) 20 mg DAILY PO 03/11/25 09:00 04/10/25 08:59 03/13/25 09:06 20 MG Iron Sucrose 300 mg/Sodium Chloride 250 ml @ 83 mls/hr DAILY IV 03/11/25 09:00 03/14/25 09:00 03/13/25 10:07 83 MLS/HR Isosorbide Mononitrate (Imdur 30mg Sr) 30 mg Q24H PO 03/10/25 15:30 03/11/25 07:58 DC 03/10/25 15:38 30 MG Isosorbide Mononitrate (Imdur 30mg Sr) 30 mg Q24H PO 03/11/25 09:00 04/10/25 08:59 03/13/25 09:06 30 MG Losartan Potassium (CozAAR 25MG TAB) 25 mg DAILY PO 03/11/25 09:00 04/10/25 08:59 03/13/25 09:06 25 MG Magnesium Sulfate 50 ml @ 0 mls/hr PROTOCOL PRN IV MAGNESIUM PROTOCOL 03/11/25 11:30 04/10/25 11:29 Metoprolol Succinate (TopROL XL) 25 mg DAILY PO 03/11/25 09:00 04/10/25 08:59 03/13/25 09:06 25 MG Nitroglycerin (Nitrostat) 0.4 mg AD PRN SL CHEST PAIN 03/10/25 12:30 04/09/25 12:29 Ondansetron HCl (zoFRAN 4MG INJ) 4 mg Q6H PRN IVP NAUSEA/VOMITING 03/10/25 15:30 04/09/25 15:29 Pantoprazole Sodium (PROTonix 40MG TAB) 40 mg DAILY PO 03/11/25 09:00 04/10/25 08:59 03/13/25 09:06 40 MG Pharmacy Profile Note (Pharmacy Communication) 1 each AD MISC 03/11/25 18:00 03/11/25 17:48 DC Potassium Chloride 100 ml @ 100 mls/hr AD PRN IV POTASSIUM PROTOCOL 03/11/25 11:30 04/10/25 11:29 Potassium Chloride (K-Dur/Klor-Con 20meq) 20 meq AD PRN PO POTASSIUM PROTOCOL 03/11/25 11:30 04/10/25 11:29 Potassium Chloride (KCl 10% Elixir 20meq/15ml) 20 meq AD PRN PO POTASSIUM PROTOCOL 03/11/25 11:30 04/10/25 11:29 Rivaroxaban (Xarelto) 20 mg DAILY PO 03/11/25 09:00 03/11/25 06:44 DC Spironolactone (Aldactone 25mg) 25 mg DAILY PO 03/11/25 09:00 04/10/25 08:59 03/13/25 09:06 25 MG DIAGNOSTICS / RADIOLOGY: [ ] ASSESSMENT: Chest pain, POA, rule out unstable angina/ACS History of multivessel coronary artery disease with prior history of PCI to Proximal LAD, proximal RCA, mid to distal RCA in 03/2024, POA History of ischemic cardiomyopathy, POA History of atrial fibrillation, POA History of chronic anticoagulation with Xarelto, POA Chronic anemia, baseline hemoglobin of 8-9 this year in 2024, POA History of ICD placement, POA PLAN: Chest pain, POA, rule out unstable angina/ACS Troponin was trended 4 times and was negative (7,8,7.3,8) Patient's BNP is 522, therefore an echocardiogram was ordered. Home medication include celecoxib, isosorbide mononitrate, metoprolol succinate, atorvastatin, pantoprazole, clopidogrel, furosemide, losartan, rivaroxaban, and spironolactone. Celecoxib was stopped on admission due to the antiplatelet and anticoagulation therapy. Cardiology stopped the patient's clopidogrel and Xarelto until gastroenterology make recommendations. Echo showed LVEF 50-55% No cardiac workup is required at this time Maintain potassium > 4 and magnesium > 2 Unspecified Anemia Hemoglobin is trending up (9.3) Iron panel shows iron deficiency anemia with transferrin saturation of 4.9%, therefore the patient was transfused 1 unit of iron sucrose yesterday. Transfuse 1 unit of iron sucrose today. Monitor H & H. Cardiology recommended to focus on patient's underlying progressive anemia which has been ongoing and worsening over the last year. According to Cardiology, the patient has required Xarelto therapy for many years but did not have any anemia while on this therapy and once clopidogrel was initiated in March 2024, the hemoglobin started showing a downward trend. Gastroenterology consulted. Planned EGD and colonoscopy on Saturday after Cardiology cleared the patient for procedure with low risk. Ordered stool for occult blood PHYSICIAN RESIDENT STATEMENT I was present with the resident during the History and Physical exam and I have reviewed the resident's note. This case was discussed with the resident and I agree with the history, physical exam and medical decision making as documented. Additions/exceptions/observations were directly added to the notes. Bonilla Lewis MD, SYED M MD Mar 13, 2025 10:56
[2025-03-14] VITALS (7 sets, daily range): BP systolic 95–151; BP diastolic 63–81; PULSE 59–71; RESP 18–20; TEMP 97.7–98.6; O2SAT 97–99
[2025-03-14 05:18] LABS: NUCLEATED RED BLOOD CELLS 0.0 % (0.0-0.19); PLATELET COUNT (AUTO) 222.0 K/uL (130-400); RED BLOOD CELL COUNT(AUTO) 3.73 MIL/uL (4.50-6.20); RED CELL DISTRIBUTION WIDTH 21.0 % (11.0-15.5); WHITE BLOOD COUNT (AUTO) 5.8 K/uL (4.8-10.8)
[2025-03-14 05:27] LABS: CREATININE 1.0 mg/dL (0.5-1.3); GLOMERULAR FILTR. RATE CALC 89.0 mL/min (>90); GLUCOSE,RANDOM 97.0 mg/dL (70-105); SODIUM SERUM 136.0 mmol/L (136-145); UREA NITROGEN, BLOOD 21.0 mg/dL (7-18)
--- NOTE | 2025-03-14 15:18 | PN ---
[facility] PROGRESS NOTE Date of Service: Mar 14, 2025 Time of Service: 15:03 SUBJECTIVE: This is a 55-year-old male with multiple cardiac history including coronary artery disease with prior history of PCI with KITTY placement to proximal LAD, proximal RCA, and mid to distal RCA in 03/2024, history of ischemic cardiomyopathy, chronic systolic congestive heart failure with improved LV EF of 45-50%, history of AICD placement in 2018, history of chronic atrial fibrillation maintained on anticoagulation with Xarelto, history of left atrial appendage thrombus, hypertension who presented to the ER for further evaluation of substernal chest pain. Patient states that symptoms started last night and has been progressive in intensity. Pain was involving the midsternal/substernal region and was moderate in intensity. Today, he noticed that he was having nonresolving chest pain when he woke up this morning. Denies any trauma to the chest. Patient is followed by Dr. Mendoza with Cardiology. Reports being compliant with antiplatelet therapy with Plavix 75 mg daily as well as Xarelto 20 mg daily. Patient does report that he recently ran out of isosorbide mononitrate and did not take his morning dose today. Patient denies any fevers, chills, denies any nausea, vomiting, or abdominal pain. On presentation, patient was noted to be afebrile with T-max of 98.1 F, heart rate of 70, blood pressure 121/81. Labs on presentation showed WBC count of 6900, hemoglobin of 8.7, platelet count of 256047. BMP on presentation showed sodium of 136, potassium 4.2, BUN of 18, creatinine 0.9, high sensitivity cardiac troponin which was noted to be negative x2, BNP of 522. 03/11/2025: The patient is alert, awake, and oriented. As the patient only speaks Slovak, rate dietary worker was used to converse with the patient. The patient did not complain of any substernal chest pains. Troponin was trended 4 times and was negative. Patient's BNP is 522, therefore an echocardiogram was ordered. Patient's hemoglobin today is 8.4 iron on panel shows iron deficiency anemia with transferrin saturation of 4.9%, therefore the patient was transfused 1 unit of iron sucrose. Patient's home medication include celecoxib, isosorbide mononitrate, metoprolol succinate, atorvastatin, pantoprazole, clopidogrel, furosemide, losartan, rivaroxaban, and spironolactone . The patient's celecoxib was stopped on admission due to the antiplatelet and anticoagulation therapy. Cardiology saw the patient and recommended to focus on patient's underlying progressive anemia which has been ongoing and worsening over the last year. According to Cardiology, the patient has required Xarelto therapy for many years but did not have any anemia while on this therapy and once clopidogrel was initiated in March 2024, the hemoglobin started showing a downward trend. As per cardiology's, no cardiac workup is required at this time but they recomme nded gastroenterology consult placed a consult for [place] [facility] to assist with patient's management and care. Meanwhile, Cardiology stopped the patient's clopidogrel and Xarelto until gastroenterology make recommendations. 03/12/2025: The patient is alert, awake, and oriented. As the patient only speaks Slovak, rate dietary worker was used to converse with the patient. The patient did not complain of any substernal chest pains. Gastroenterology saw the patient yesterday and stated that they need cardiology clearance for EGD and colonoscopy. Cardiology saw the patient today and gave the clearance for EGD and colonoscopy. The patient is planned for EGD and colonoscopy on Saturday. 03/13/2025: The patient is alert, awake, and oriented. As the patient only speaks Slovak, rate dietary worker was used to converse with the patient. The patient did not complain of any substernal chest pains. The patient is planned for EGD and colonoscopy on Saturday. 03/14/2025: The patient is AAOX3. He did not complaint of any substernal chest pain, nausea, diarrhea, vomiting, blood in the stools. The patient is planned for EGD and colonoscopy on Saturday. REVIEW OF SYSTEMS CONSTITUTIONAL: Denies fevers, chills, or night sweats. No unintentional weight loss reported. NEUROLOGICAL: Denies headache, amaurosis fugax, motor weakness, sensory deficit, vertigo/spinning sensation, gait abnormalities, or tremors. ENT: No hearing loss, otalgia, otorrhea, rhinitis, rhinorrhea, hoarseness, or sore throat. CARDIOVASCULAR: Substernal chest pain PULMONARY: Denies any shortness of breath, cough, phlegm/sputum, hemoptysis, pleuritic chest pain. SLEEP: Denies morning headaches, daytime somnolence or napping. Denies difficulty falling asleep, staying asleep, waking from sleep. Denies knowledge of snoring. GASTROINTESTINAL: Denies any type of dysphagia to either liquids or solids. Denies nausea, vomiting, pyrosis, early satiety, abdominal pain, diarrhea, constipation, or changes in stool consistency or caliber. Denies coffee-ground emesis, hematemesis, hematochezia, or melanotic stools. GENITOURINARY: Denies frequency, urgency, nocturia, hematuria or incontinence (Storage/Irritative symptoms.) Low urinary stream, straining to void, urinary intermittency or hesitancy, splitting of the voiding stream, terminal dribbling. ENDOCRINOLOGIC: Denies polyuria, polydipsia, polyphagia or heat/cold intolerances. PHYSICAL EXAM GENERAL APPEARANCE: The patient is awake, alert, and oriented, in no acute cardiopulmonary distress. NEUROLOGICAL: Cranial nerves II-XII grossly intact. Motor is 5/5 in bilateral upper and lower extremities proximal to distal. No sensory deficits. HEENT: Face is symmetric. Pupils are equal and reactive. Extraocular movements are intact. NECK: Supple. No JVD. No thyromegaly. No submental, submandibular, pre- /postauricular, occipital or supraclavicular lymphadenopathy. CHEST: Normal chest expansion. No Telemetry. LUNGS: Absence of any rales, rhonchi or any wheezing. CARDIOVASCULAR: Regular. S1 and S2 normal. No appreciable rubs, murmurs or gallops. ABDOMEN: Soft, nontender, and nondistended. There is no rebound, voluntary guarding, or rigidity. : Deferred. No Mtz. EXTREMITIES: Non-edematous and not cyanotic. No clubbing. Good capillary refill. SKIN: No skin breakdown. Vital Signs (last 8hr) Date Time Temp Pulse Resp B/P (MAP) Pulse Ox O2 Delivery O2 Flow Rate FiO2 03/14/25 12:00 98.6 71 18 105/66 105 Room Air 03/14/25 08:00 98.4 59 18 107/63 99 Room Air LABS: Laboratory: Test 03/14/25 04:50 Range/Units White Blood Count 5.8 4.8-10.8 K/uL Red Blood Count 3.73 L 4.50-6.20 MIL/uL Hemoglobin 9.2 L 14.0-18.0 g/dL Hematocrit 30.8 L 42-54 % Mean Corpuscular Volume 82.6 79-99 fL Mean Corpuscular Hemoglobin 24.7 L 27.0-33.0 pg Mean Corpuscular Hemoglobin Concent 29.9 L 32.0-36.0 g/dL Red Cell Distribution Width 21.0 H 11.0-15.5 % Platelet Count 222 130-400 K/uL Mean Platelet Volume 10.2 7.5-10.5 fL Nucleated Red Blood Cells 0.0 0.0-0.19 % Sodium Level 136 136-145 mmol/L Potassium Level 3.7 3.5-5.1 mmol/L Chloride Level 102 101-111 mmol/L Carbon Dioxide Level 29 21-32 mmol/L Blood Urea Nitrogen 21 H 7-18 mg/dL Creatinine 1.0 0.5-1.3 mg/dL Glomerular Filtration Rate Calc 89 >90 mL/min Random Glucose 97 70-105 mg/dL Total Calcium 9.0 8.5-10.1 mg/dL Magnesium Level 1.90 1.80-2.40 mg/dL Current Medications Medications (Trade) Dose Ordered Sig/Teodoro Route PRN Reason Start Time Stop Time Status Last Admin Dose Admin Acetaminophen (TYLenol 325MG TAB) 650 mg Q6H PRN PO MILD PAIN (1-3) 03/10/25 15:30 04/09/25 15:29 Atorvastatin Calcium (LIPItor 40MG) 40 mg HS PO 03/10/25 21:00 04/09/25 20:59 03/13/25 20:29 40 MG Clopidogrel Bisulfate (plaVIX 75MG) 75 mg DAILY PO 03/11/25 09:00 03/11/25 06:44 DC Docusate Sodium (COLace 100MG CAP) 100 mg BID PRN PO CONSTIPATION 03/11/25 11:30 04/10/25 11:29 03/12/25 09:11 100 MG Furosemide (LASix 20MG TAB) 20 mg DAILY PO 03/11/25 09:00 04/10/25 08:59 03/14/25 10:01 20 MG Iron Sucrose 300 mg/Sodium Chloride 250 ml @ 83 mls/hr DAILY IV 03/11/25 09:00 03/14/25 09:00 DC 03/13/25 10:07 83 MLS/HR Isosorbide Mononitrate (Imdur 30mg Sr) 30 mg Q24H PO 03/10/25 15:30 03/11/25 07:58 DC 03/10/25 15:38 30 MG Isosorbide Mononitrate (Imdur 30mg Sr) 30 mg Q24H PO 03/11/25 09:00 04/10/25 08:59 03/14/25 10:01 30 MG Losartan Potassium (CozAAR 25MG TAB) 25 mg DAILY PO 03/11/25 09:00 04/10/25 08:59 03/14/25 10:00 25 MG Magnesium Sulfate 50 ml @ 0 mls/hr PROTOCOL PRN IV MAGNESIUM PROTOCOL 03/11/25 11:30 04/10/25 11:29 Metoprolol Succinate (TopROL XL) 25 mg DAILY PO 03/11/25 09:00 04/10/25 08:59 03/14/25 10:01 25 MG Nitroglycerin (Nitrostat) 0.4 mg AD PRN SL CHEST PAIN 03/10/25 12:30 04/09/25 12:29 Ondansetron HCl (zoFRAN 4MG INJ) 4 mg Q6H PRN IVP NAUSEA/VOMITING 03/10/25 15:30 04/09/25 15:29 Pantoprazole Sodium (PROTonix 40MG TAB) 40 mg DAILY PO 03/11/25 09:00 04/10/25 08:59 03/14/25 10:00 40 MG Pharmacy Profile Note (Pharmacy Communication) 1 each AD MISC 03/11/25 18:00 03/11/25 17:48 DC Potassium Chloride 100 ml @ 100 mls/hr AD PRN IV POTASSIUM PROTOCOL 03/11/25 11:30 04/10/25 11:29 Potassium Chloride (K-Dur/Klor-Con 20meq) 20 meq AD PRN PO POTASSIUM PROTOCOL 03/11/25 11:30 04/10/25 11:29 Potassium Chloride (KCl 10% Elixir 20meq/15ml) 20 meq AD PRN PO POTASSIUM PROTOCOL 03/11/25 11:30 04/10/25 11:29 Rivaroxaban (Xarelto) 20 mg DAILY PO 03/11/25 09:00 03/11/25 06:44 DC Spironolactone (Aldactone 25mg) 25 mg DAILY PO 03/11/25 09:00 04/10/25 08:59 03/14/25 10:01 25 MG DIAGNOSTICS / RADIOLOGY: [ ] ASSESSMENT: Chest pain, POA, rule out unstable angina/ACS History of multivessel coronary artery disease with prior history of PCI to Proximal LAD, proximal RCA, mid to distal RCA in 03/2024, POA History of ischemic cardiomyopathy, POA History of atrial fibrillation, POA History of chronic anticoagulation with Xarelto, POA Chronic anemia, baseline hemoglobin of 8-9 this year in 2024, POA History of ICD placement, POA PLAN: Chest pain, POA, rule out unstable angina/ACS Troponin was trended 4 times and was negative (7,8,7.3,8) Patient's BNP is 522, therefore an echocardiogram was ordered. Home medication include celecoxib, isosorbide mononitrate, metoprolol succinate, atorvastatin, pantoprazole, clopidogrel, furosemide, losartan, rivaroxaban, and spironolactone. Celecoxib was stopped on admission due to the antiplatelet and anticoagulation therapy. Cardiology stopped the patient's clopidogrel and Xarelto until gastroenterology make recommendations. Echo showed LVEF 50-55% No cardiac workup is required at this time Maintain potassium > 4 and magnesium > 2 Unspecified Anemia Hemoglobin is stable (9.2) Iron panel shows iron deficiency anemia with transferrin saturation of 4.9%, continue iron sucrose transfusion today Monitor H & H. Cardiology recommended to focus on patient's underlying progressive anemia which has been ongoing and worsening over the last year. According to Cardiology, the patient has required Xarelto therapy for many years but did not have any anemia while on this therapy and once clopidogrel was initiated in March 2024, the hemoglobin started showing a downward trend. Gastroenterology consulted. Planned EGD and colonoscopy on Saturday. Cardiology cleared the patient for procedure with low risk. Ordered stool for occult blood. Pending for today ATTESTATION BY PHYSICIAN I have seen and examined the patient. I reviewed the documentation, medical decision making, and treatment plan as noted by the resident provider above. I agree with the findings and plan of care. Bonilla Lewis MD, BHAVANI MD Mar 14, 2025 15:18
[2025-03-14] MEDS: PoTASSium chloRIDE 20MEQ ER 20 MEQ ERTAB PO PRN (19:33)
[2025-03-15] VITALS (8 sets, daily range): BP systolic 100–127; BP diastolic 40–77; PULSE 42–70; RESP 16–20; TEMP 97.8–98.1; O2SAT 96
[2025-03-15 06:10] LABS: NUCLEATED RED BLOOD CELLS 0.0 % (0.0-0.19); PLATELET COUNT (AUTO) 226.0 K/uL (130-400); RED BLOOD CELL COUNT(AUTO) 3.9 MIL/uL (4.50-6.20); RED CELL DISTRIBUTION WIDTH 21.5 % (11.0-15.5); WHITE BLOOD COUNT (AUTO) 5.8 K/uL (4.8-10.8)
[2025-03-15 06:24] LABS: CREATININE 1.0 mg/dL (0.5-1.3); GLOMERULAR FILTR. RATE CALC 89.0 mL/min (>90); GLUCOSE,RANDOM 105.0 mg/dL (70-105); SODIUM SERUM 139.0 mmol/L (136-145); UREA NITROGEN, BLOOD 18.0 mg/dL (7-18)
--- NOTE | 2025-03-15 10:00 | PN ---
[facility] PROGRESS NOTE Date of Service: Mar 15, 2025 Time of Service: 09:50 SUBJECTIVE: This is a 55-year-old male with multiple cardiac history including coronary artery disease with prior history of PCI with KITTY placement to proximal LAD, proximal RCA, and mid to distal RCA in 03/2024, history of ischemic cardiomyopathy, chronic systolic congestive heart failure with improved LV EF of 45-50%, history of AICD placement in 2018, history of chronic atrial fibrillation maintained on anticoagulation with Xarelto, history of left atrial appendage thrombus, hypertension who presented to the ER for further evaluation of substernal chest pain. Patient states that symptoms started last night and has been progressive in intensity. Pain was involving the midsternal/substernal region and was moderate in intensity. Today, he noticed that he was having nonresolving chest pain when he woke up this morning. Denies any trauma to the chest. Patient is followed by Dr. Mendoza with Cardiology. Reports being compliant with antiplatelet therapy with Plavix 75 mg daily as well as Xarelto 20 mg daily. Patient does report that he recently ran out of isosorbide mononitrate and did not take his morning dose today. Patient denies any fevers, chills, denies any nausea, vomiting, or abdominal pain. On presentation, patient was noted to be afebrile with T-max of 98.1 F, heart rate of 70, blood pressure 121/81. Labs on presentation showed WBC count of 6900, hemoglobin of 8.7, platelet count of [id number]. BMP on presentation showed sodium of 136, potassium 4.2, BUN of 18, creatinine 0.9, high sensitivity cardiac troponin which was noted to be negative x2, BNP of 522. 03/11/2025: The patient is alert, awake, and oriented. As the patient only speaks Moldovan, rate bundle shaker was used to converse with the patient. The patient did not complain of any substernal chest pains. Troponin was trended 4 times and was negative. Patient's BNP is 522, therefore an echocardiogram was ordered. Patient's hemoglobin today is 8.4 iron on panel shows iron deficiency anemia with transferrin saturation of 4.9%, therefore the patient was transfused 1 unit of iron sucrose. Patient's home medication include celecoxib, isosorbide mononitrate, metoprolol succinate, atorvastatin, pantoprazole, clopidogrel, furosemide, losartan, rivaroxaban, and spironolactone . The patient's celecoxib was stopped on admission due to the antiplatelet and anticoagulation therapy. Cardiology saw the patient and recommended to focus on patient's underlying progressive anemia which has been ongoing and worsening over the last year. According to Cardiology, the patient has required Xarelto therapy for many years but did not have any anemia while on this therapy and once clopidogrel was initiated in March 2024, the hemoglobin started showing a downward trend. As per cardiology's, no cardiac workup is required at this time but they recommended gastroenterology consult placed a consult for [facility] to assist with patient's management and care. Meanwhile, Cardiology stopped the patient's clopidogrel and Xarelto until gastroenterology make recommendations. 03/12/2025: The patient is alert, awake, and oriented. As the patient only speaks Moldovan, rate bundle shaker was used to converse with the patient. The patient did not complain of any substernal chest pains. Gastroenterology saw the patient yesterday and stated that they need cardiology clearance for EGD and colonoscopy. Cardiology saw the patient today and gave the clearance for EGD and colonoscopy. The patient is planned for EGD and colonoscopy on Saturday. 03/13/2025: The patient is alert, awake, and oriented. As the patient only speaks Moldovan, rate bundle shaker was used to converse with the patient. The patient did not complain of any substernal chest pains. The patient is planned for EGD and colonoscopy on Saturday. 03/14/2025: The patient is AAOX3. He did not complaint of any substernal chest pain, nausea, diarrhea, vomiting, blood in the stools. The patient is planned for EGD and colonoscopy on Saturday. 03/15/2025: The patient was seen and evaluated in room 421. The patient is alert, awake, and oriented. Patient denied substernal chest pain, nausea or blood in stools. Patient is planned for EGD and colonoscopy tomorrow. REVIEW OF SYSTEMS CONSTITUTIONAL: Denies fevers, chills, or night sweats. No unintentional weight loss reported. NEUROLOGICAL: Denies headache, amaurosis fugax, motor weakness, sensory deficit, vertigo/spinning sensation, gait abnormalities, or tremors. ENT: No hearing loss, otalgia, otorrhea, rhinitis, rhinorrhea, hoarseness, or sore throat. CARDIOVASCULAR: Substernal chest pain PULMONARY: Denies any shortness of breath, cough, phlegm/sputum, hemoptysis, pleuritic chest pain. SLEEP: Denies morning headaches, daytime somnolence or napping. Denies difficulty falling asleep, staying asleep, waking from sleep. Denies knowledge of snoring. GASTROINTESTINAL: Denies any type of dysphagia to either liquids or solids. Denies nausea, vomiting, pyrosis, early satiety, abdominal pain, diarrhea, constipation, or changes in stool consistency or caliber. Denies coffee-ground emesis, hematemesis, hematochezia, or melanotic stools. GENITOURINARY: Denies frequency, urgency, nocturia, hematuria or incontinence (Storage/Irritative symptoms.) Low urinary stream, straining to void, urinary intermittency or hesitancy, splitting of the voiding stream, terminal dribbling. ENDOCRINOLOGIC: Denies polyuria, polydipsia, polyphagia or heat/cold intolerances. PHYSICAL EXAM GENERAL APPEARANCE: The patient is awake, alert, and oriented, in no acute cardiopulmonary distress. NEUROLOGICAL: No sensory deficits. HEENT: Face is symmetric. NECK: Supple. No thyromegaly. No submental, submandibular, pre-/postauricular, occipital or supraclavicular lymphadenopathy. CHEST: Normal chest expansion. No Telemetry. LUNGS: Absence of any rales, rhonchi or any wheezing. CARDIOVASCULAR: Regular. S1 and S2 normal. No appreciable rubs, murmurs or gallops. ABDOMEN: Soft, nontender, and nondistended. There is no rebound, voluntary guarding, or rigidity. : Deferred. No Mtz. EXTREMITIES: Non-edematous and not cyanotic. No clubbing. Good capillary refill. SKIN: No skin breakdown. Vital Signs (last 8hr) Date Time Temp Pulse Resp B/P (MAP) Pulse Ox O2 Delivery O2 Flow Rate FiO2 03/15/25 07:31 98.1 48 16 112/40 96 Room Air 03/15/25 04:00 97.9 42 20 100/56 96 Room Air LABS: Laboratory: Test 03/15/25 05:49 03/14/25 04:50 Range/Units White Blood Count 5.8 4.8-10.8 K/uL Red Blood Count 3.90 L 4.50-6.20 MIL/uL Hemoglobin 9.7 L 14.0-18.0 g/dL Hematocrit 32.5 L 42-54 % Mean Corpuscular Volume 83.3 79-99 fL Mean Corpuscular Hemoglobin 24.9 L 27.0-33.0 pg Mean Corpuscular Hemoglobin Concent 29.8 L 32.0-36.0 g/dL Red Cell Distribution Width 21.5 H 11.0-15.5 % Platelet Count 226 130-400 K/uL Mean Platelet Volume 10.2 7.5-10.5 fL Nucleated Red Blood Cells 0.0 0.0-0.19 % Sodium Level 139 136-145 mmol/L Potassium Level 4.6 3.5-5.1 mmol/L Chloride Level 104 101-111 mmol/L Carbon Dioxide Level 27 21-32 mmol/L Blood Urea Nitrogen 18 7-18 mg/dL Creatinine 1.0 0.5-1.3 mg/dL Glomerular Filtration Rate Calc 89 >90 mL/min Random Glucose 105 70-105 mg/dL Total Calcium 9.0 8.5-10.1 mg/dL Magnesium Level 1.90 1.80-2.40 mg/dL Current Medications Medications (Trade) Dose Ordered Sig/Teodoro Route PRN Reason Start Time Stop Time Status Last Admin Dose Admin Acetaminophen (TYLenol 325MG TAB) 650 mg Q6H PRN PO MILD PAIN (1-3) 03/10/25 15:30 04/09/25 15:29 Atorvastatin Calcium (LIPItor 40MG) 40 mg HS PO 03/10/25 21:00 04/09/25 20:59 03/14/25 20:42 40 MG Clopidogrel Bisulfate (plaVIX 75MG) 75 mg DAILY PO 03/11/25 09:00 03/11/25 06:44 DC Docusate Sodium (COLace 100MG CAP) 100 mg BID PRN PO CONSTIPATION 03/11/25 11:30 04/10/25 11:29 03/12/25 09:11 100 MG Furosemide (LASix 20MG TAB) 20 mg DAILY PO 03/11/25 09:00 04/10/25 08:59 03/14/25 10:01 20 MG Iron Sucrose 300 mg/Sodium Chloride 250 ml @ 83 mls/hr DAILY IV 03/11/25 09:00 03/14/25 09:00 DC 03/13/25 10:07 83 MLS/HR Isosorbide Mononitrate (Imdur 30mg Sr) 30 mg Q24H PO 03/10/25 15:30 03/11/25 07:58 DC 03/10/25 15:38 30 MG Isosorbide Mononitrate (Imdur 30mg Sr) 30 mg Q24H PO 03/11/25 09:00 04/10/25 08:59 03/14/25 10:01 30 MG Losartan Potassium (CozAAR 25MG TAB) 25 mg DAILY PO 03/11/25 09:00 04/10/25 08:59 03/14/25 10:00 25 MG Magnesium Sulfate 50 ml @ 0 mls/hr PROTOCOL PRN IV MAGNESIUM PROTOCOL 03/11/25 11:30 04/10/25 11:29 Metoprolol Succinate (TopROL XL) 25 mg DAILY PO 03/11/25 09:00 04/10/25 08:59 03/14/25 10:01 25 MG Nitroglycerin (Nitrostat) 0.4 mg AD PRN SL CHEST PAIN 03/10/25 12:30 04/09/25 12:29 Ondansetron HCl (zoFRAN 4MG INJ) 4 mg Q6H PRN IVP NAUSEA/VOMITING 03/10/25 15:30 04/09/25 15:29 Pantoprazole Sodium (PROTonix 40MG TAB) 40 mg DAILY PO 03/11/25 09:00 04/10/25 08:59 03/14/25 10:00 40 MG Pharmacy Profile Note (Pharmacy Communication) 1 each AD MISC 03/11/25 18:00 03/11/25 17:48 DC Potassium Chloride 100 ml @ 100 mls/hr AD PRN IV POTASSIUM PROTOCOL 03/11/25 11:30 04/10/25 11:29 Potassium Chloride (K-Dur/Klor-Con 20meq) 20 meq AD PRN PO POTASSIUM PROTOCOL 03/11/25 11:30 04/10/25 11:29 03/14/25 20:42 20 MEQ Potassium Chloride (KCl 10% Elixir 20meq/15ml) 20 meq AD PRN PO POTASSIUM PROTOCOL 03/11/25 11:30 04/10/25 11:29 Rivaroxaban (Xarelto) 20 mg DAILY PO 03/11/25 09:00 03/11/25 06:44 DC Spironolactone (Aldactone 25mg) 25 mg DAILY PO 03/11/25 09:00 04/10/25 08:59 03/14/25 10:01 25 MG DIAGNOSTICS / RADIOLOGY: [ ] ASSESSMENT: Chest pain, POA, rule out unstable angina/ACS History of multivessel coronary artery disease with prior history of PCI to Proximal LAD, proximal RCA, mid to distal RCA in 03/2024, POA History of ischemic cardiomyopathy, POA History of atrial fibrillation, POA History of chronic anticoagulation with Xarelto, POA Chronic anemia, baseline hemoglobin of 8-9 this year in 2024, POA History of ICD placement, POA PLAN: Chest pain, POA, rule out unstable angina/ACS Troponin was trended 4 times and was negative (7,8,7.3,8) Patient's BNP is 522 at the time of admission, Echo showed LVEF 50-55% Celecoxib was stopped on admission due to the antiplatelet and anticoagulation therapy. Cardiology stopped the patient's clopidogrel and Xarelto until gastroenterology make recommendations. No cardiac workup is required at this time Maintain potassium > 4 and magnesium > 2, Patient of protocol to replenish the electrolytes. Unspecified Anemia Hemoglobin is stable (9.7) Iron panel shows iron deficiency anemia with transferrin saturation of 4.9% on 03.11.2025 iron sucrose transfusion given - 3 Venofer 300 mg given Monitor H & H. Cardiology recommended to focus on patient's underlying progressive anemia which has been ongoing and worsening over the last year. According to Cardiology, the patient has required Xarelto therapy for many years but did not have any anemia while on this therapy and once clopidogrel was initiated in March 2024, the hemoglobin started showing a downward trend. Gastroenterology consulted- Planned EGD and colonoscopy on Tomorrow. Ordered stool for occult blood. Pending results ATTESTATION BY PHYSICIAN I have seen and examined the patient. I reviewed the documentation, medical decision making, and treatment plan as noted by the resident provider above. I agree with the findings and plan of care. Bonilla Lewis MD, LAKSHMI MD Mar 15, 2025 10:00
[2025-03-15] MEDS: PEG 3350/NA SULF,BICARB,CL/KCL 4000 ML SOLN PO ONE (13:11)
[2025-03-16] VITALS (20 sets, daily range): BP systolic 100–131; BP diastolic 61–81; PULSE 50–77; RESP 16–20; TEMP 97.6–98.3; O2SAT 100
[2025-03-16 04:24] LABS: IMMATURE GRANULOCYTE ABSOLUTE 0.02 K/uL (0-1); NUCLEATED RED BLOOD CELLS 0.0 % (0.0-0.19); PLATELET COUNT (AUTO) 217 K/uL (130-400); RED BLOOD CELL COUNT(AUTO) 3.81 MIL/uL (4.50-6.20); RED CELL DISTRIBUTION WIDTH 21.3 % (11.0-15.5); WHITE BLOOD COUNT (AUTO) 5.3 K/uL (4.8-10.8)
[2025-03-16 04:38] LABS: CREATININE 1.1 mg/dL (0.5-1.3); GLOMERULAR FILTR. RATE CALC 79.0 mL/min (>90); GLUCOSE,RANDOM 84.0 mg/dL (70-105); SODIUM SERUM 138.0 mmol/L (136-145); UREA NITROGEN, BLOOD 15.0 mg/dL (7-18)
--- NOTE | 2025-03-16 12:38 | NUR ---
EGD/COLONOSCOPY PATIENT RETURNED FROM EGD/COLONOSCOPY. NO NEW ORDERS GIVEN, PATIENT TO RESUME DIET AND FOLLOW UP OUTPATIENT 1 WEEK AFTER DISCHARGE. PRIMARY NOTIFIED OF RECOMMENDATIONS. WILL CONTINUE TO MONITOR.
--- NOTE | 2025-03-16 13:11 | PN ---
[facility] PROGRESS NOTE Date of Service: Mar 16, 2025 Time of Service: 13:[address] Gutierrez SUBJECTIVE: This is a 55-year-old male with multiple cardiac history including coronary artery disease with prior history of PCI with KITTY placement to proximal LAD, proximal RCA, and mid to distal RCA in 03/2024, history of ischemic cardiomyopathy, chronic systolic congestive heart failure with improved LV EF of 45-50%, history of AICD placement in 2018, history of chronic atrial fibrillation maintained on anticoagulation with Xarelto, history of left atrial appendage thrombus, hypertension who presented to the ER for further evaluation of substernal chest pain. Patient states that symptoms started last night and has been progressive in intensity. Pain was involving the midsternal/substernal region and was moderate in intensity. Today, he noticed that he was having nonresolving chest pain when he woke up this morning. Denies any trauma to the chest. Patient is followed by Dr. Mendoza with Cardiology. Reports being compliant with antiplatelet therapy with Plavix 75 mg daily as well as Xarelto 20 mg daily. Patient does report that he recently ran out of isosorbide mononitrate and did not take his morning dose today. Patient denies any fevers, chills, denies any nausea, vomiting, or abdominal pain. On presentation, patient was noted to be afebrile with T-max of 98.1 F, heart rate of 70, blood pressure 121/81. Labs on presentation showed WBC count of 6900, hemoglobin of 8.7, platelet count of 073011. BMP on presentation showed sodium of 136, potassium 4.2, BUN of 18, creatinine 0.9, high sensitivity cardiac troponin which was noted to be negative x2, BNP of 522. 03/11/2025: The patient is alert, awake, and oriented. As the patient only spe aks Uzbek, rate director of oncology was used to converse with the patient. The patient did not complain of any substernal chest pains. Troponin was trended 4 times and was negative. Patient's BNP is 522, therefore an echocardiogram was ordered. Patient's hemoglobin today is 8.4 iron on panel shows iron deficiency anemia with transferrin saturation of 4.9%, therefore the patient was transfused 1 unit of iron sucrose. Patient's home medication include celecoxib, isosorbide mononitrate, metoprolol succinate, atorvastatin, pantoprazole, clopidogrel, furosemide, losartan, rivaroxaban, and spironolactone . The patient's celecoxib was stopped on admission due to the antiplatelet and anticoagulation therapy. Cardiology saw the patient and recommended to focus on patient's underlying progressive anemia which has been ongoing and worsening over the last year. According to Cardiology, the patient has required Xarelto therapy for many years but did not have any anemia while on this therapy and once clopidogrel was initiated in March 2024, the hemoglobin started showing a downward trend. As per cardiology's, no cardiac workup is required at this time but they recommended gastroenterology consult placed a consult for [place] [facility] to assist with patient's management and care. Meanwhile, Cardiology stopped the patient's clopidogrel and Xarelto until gastroenterology make recommendations. 03/12/2025: The patient is alert, awake, and oriented. As the patient only speaks Uzbek, rate director of oncology was used to converse with the patient. The patient did not complain of any substernal chest pains. Gastroenterology saw the patient yesterday and stated that they need cardiology clearance for EGD and colonoscopy. Cardiology saw the patient today and gave the clearance for EGD and colonoscopy. The patient is planned for EGD and colonoscopy on Saturday. 03/13/2025: The patient is alert, awake, and oriented. As the patient only speaks Uzbek, rate director of oncology was used to converse with the patient. The patient did not complain of any substernal chest pains. The patient is planned for EGD and colonoscopy on Saturday. 03/14/2025: The patient is AAOX3. He did not complaint of any substernal chest pain, sarah sea, diarrhea, vomiting, blood in the stools. The patient is planned for EGD and colonoscopy on Saturday. 03/15/2025: The patient was seen and evaluated in room 421. The patient is alert, awake, and oriented. Patient denied substernal chest pain, nausea or blood in stools. Patient is planned for EGD and colonoscopy tomorrow. 03/16/25 patient was seen by nurse practitioner and physician during rounding in room 421. Patient is pending EGD and colonoscopy as ordered by the GI. Patient was already cleared by foil cutter for the above-stated procedure. 2D echo showed EF 50 to 55% unable to assist diastolic function. Chest x-ray negative. Patient will also receive 40 mEq of potassium for potassium of 3.6. We will continue to monitor patient in the meantime. A.m. labs. Anticipated discharge within 24 hours REVIEW OF SYSTEMS CONSTITUTIONAL: Denies fevers, chills, or night sweats. No unintentional weight loss reported. NEUROLOGICAL: Denies headache, amaurosis fugax, motor weakness, sensory deficit, vertigo/spinning sensation, gait abnormalities, or tremors. ENT: No hearing loss, otalgia, otorrhea, rhinitis, rhinorrhea, hoarseness, or sore throat. CARDIOVASCULAR: Substernal chest pain PULMONARY: Denies any shortness of breath, cough, phlegm/sputum, hemoptysis, pleuritic chest pain. SLEEP: Denies morning headaches, daytime somnolence or napping. Denies difficulty falling asleep, staying asleep, waking from sleep. Denies knowledge of snoring. GASTROINTESTINAL: Denies any type of dysphagia to either liquids or solids. Denies nausea, vomiting, pyrosis, early satiety, abdominal pain, diarrhea, constipation, or changes in stool consistency or caliber. Denies coffee-ground emesis, hematemesis, hematochezia, or melanotic stools. GENITOURINARY: Denies frequency, urgency, nocturia, hematuria or incontinence (Storage/Irritative symptoms.) Low urinary stream, straining to void, urinary intermittency or hesitancy, splitting of the voiding stream, terminal dribbling. ENDOCRINOLOGIC: Denies polyuria, polydipsia, polyphagia or heat/cold intolerances. PHYSICAL EXAM GENERAL APPEARANCE: The patient is awake, alert, and oriented, in no acute cardiopulmonary distress. NEUROLOGICAL: No sensory deficits. HEENT: Face is symmetric. NECK: Supple. No thyromegaly. No submental, submandibular, pre-/postauricular, occipital or supraclavicular lymphadenopathy. CHEST: Normal chest expansion. No Telemetry. LUNGS: Absence of any rales, rhonchi or any wheezing. CARDIOVASCULAR: Regular. S1 and S2 normal. No appreciable rubs, murmurs or gallops. ABDOMEN: Soft, nontender, and nondistended. There is no rebound, voluntary guarding, or rigidity. : Deferred. No Mtz. EXTREMITIES: Non-edematous and not cyanotic. No clubbing. Good capillary refill. SKIN: No skin breakdown. Vital Signs (last 8hr) Date Time Temp Pulse Resp B/P (MAP) Pulse Ox O2 Delivery O2 Flow Rate FiO2 03/16/25 12:30 98.2 62 17 117/74 98 Room Air 03/16/25 12:20 97.5 67 16 117/70 97 Room Air 03/16/25 12:15 65 17 112/69 97 Room Air 03/16/25 12:10 74 16 113/71 96 Room Air 03/16/25 12:05 65 17 108/75 96 Room Air 03/16/25 12:00 67 18 106/76 98 Room Air 03/16/25 11:55 76 17 109/66 100 Nonrebreathing Mask 10.0 03/16/25 11:50 97.5 75 16 100/66 100 Nonrebreathing Mask 10.0 03/16/25 11:37 97.9 56 18 115/80 99 Room Air 03/16/25 11:13 Mask 03/16/25 11:13 Mask 10.0 03/16/25 07:41 97.7 51 16 120/77 100 Room Air LABS: Laboratory: Test 03/16/25 03:43 Range/Units White Blood Count 5.3 4.8-10.8 K/uL Red Blood Count 3.81 L 4.50-6.20 MIL/uL Hemoglobin 9.5 L 14.0-18.0 g/dL Hematocrit 31.5 L 42-54 % Mean Corpuscular Volume 82.7 79-99 fL Mean Corpuscular Hemoglobin 24.9 L 27.0-33.0 pg Mean Corpuscular Hemoglobin Concent 30.2 L 32.0-36.0 g/dL Red Cell Distribution Width 21.3 H 11.0-15.5 % Platelet Count 217 130-400 K/uL Mean Platelet Volume 10.1 7.5-10.5 fL Immature Granulocyte % (Auto) 0.4 0-1 % Neutrophils (%) (Auto) 53.3 40.0-77.0 % Lymphocytes (%) (Auto) 30.2 21.0-51.0 % Monocytes (%) (Auto) 12.4 3.0-13.0 % Eosinophils (%) (Auto) 2.7 0.0-8.0 % Basophils (%) (Auto) 1.0 0.0-5.0 % Neutrophils # (Auto) 2.8 1.8-7.7 K/uL Lymphocytes # (Auto) 1.6 1.0-4.8 K/uL Monocytes # (Auto) 0.7 0.1-1.0 K/uL Eosinophils # (Auto) 0.14 0.00-0.70 K/uL Basophils # (Auto) 0.05 0.00-0.20 K/uL Absolute Immature Granulocyte (auto 0.02 0-1 K/uL Nucleated Red Blood Cells 0.0 0.0-0.19 % Sodium Level 138 136-145 mmol/L Potassium Level 3.6 3.5-5.1 mmol/L Chloride Level 101 101-111 mmol/L Carbon Dioxide Level 27 21-32 mmol/L Blood Urea Nitrogen 15 7-18 mg/dL Creatinine 1.1 0.5-1.3 mg/dL Glomerular Filtration Rate Calc 79 >90 mL/min Random Glucose 84 70-105 mg/dL Total Calcium 9.0 8.5-10.1 mg/dL Current Medications Medications (Trade) Dose Ordered Sig/Teodoro Route PRN Reason Start Time Stop Time Status Last Admin Dose Admin Acetaminophen (TYLenol 325MG TAB) 650 mg Q6H PRN PO MILD PAIN (1-3) 03/10/25 15:30 04/09/25 15:29 Atorvastatin Calcium (LIPItor 40MG) 40 mg HS PO 03/10/25 21:00 04/09/25 20:59 03/15/25 21:41 40 MG Clopidogrel Bisulfate (plaVIX 75MG) 75 mg DAILY PO 03/11/25 09:00 03/11/25 06:44 DC Docusate Sodium (COLace 100MG CAP) 100 mg BID PRN PO CONSTIPATION 03/11/25 11:30 04/10/25 11:29 03/12/25 09:11 100 MG Furosemide (LASix 20MG TAB) 20 mg DAILY PO 03/11/25 09:00 04/10/25 08:59 03/15/25 09:50 20 MG Iron Sucrose 300 mg/Sodium Chloride 250 ml @ 83 mls/hr DAILY IV 03/11/25 09:00 03/14/25 09:00 DC 03/13/25 10:07 83 MLS/HR Isosorbide Mononitrate (Imdur 30mg Sr) 30 mg Q24H PO 03/10/25 15:30 03/11/25 07:58 DC 03/10/25 15:38 30 MG Isosorbide Mononitrate (Imdur 30mg Sr) 30 mg Q24H PO 03/11/25 09:00 04/10/25 08:59 03/15/25 09:49 30 MG Losartan Potassium (CozAAR 25MG TAB) 25 mg DAILY PO 03/11/25 09:00 04/10/25 08:59 03/15/25 09:49 25 MG Magnesium Sulfate 50 ml @ 0 mls/hr PROTOCOL PRN IV MAGNESIUM PROTOCOL 03/11/25 11:30 04/10/25 11:29 Metoprolol Succinate (TopROL XL) 25 mg DAILY PO 03/11/25 09:00 04/10/25 08:59 03/15/25 09:49 25 MG Nitroglycerin (Nitrostat) 0.4 mg AD PRN SL CHEST PAIN 03/10/25 12:30 04/09/25 12:29 Ondansetron HCl (zoFRAN 4MG INJ) 4 mg Q6H PRN IVP NAUSEA/VOMITING 03/10/25 15:30 04/09/25 15:29 Pantoprazole Sodium (PROTonix 40MG TAB) 40 mg DAILY PO 03/11/25 09:00 04/10/25 08:59 03/15/25 09:49 40 MG Pharmacy Profile Note (Pharmacy Communication) 1 each AD MISC 03/11/25 18:00 03/11/25 17:48 DC Potassium Chloride 100 ml @ 100 mls/hr AD PRN IV POTASSIUM PROTOCOL 03/11/25 11:30 04/10/25 11:29 Potassium Chloride (K-Dur/Klor-Con 20meq) 20 meq AD PRN PO POTASSIUM PROTOCOL 03/11/25 11:30 04/10/25 11:29 03/14/25 20:42 20 MEQ Potassium Chloride (KCl 10% Elixir 20meq/15ml) 20 meq AD PRN PO POTASSIUM PROTOCOL 03/11/25 11:30 04/10/25 11:29 Rivaroxaban (Xarelto) 20 mg DAILY PO 03/11/25 09:00 03/11/25 06:44 DC Spironolactone (Aldactone 25mg) 25 mg DAILY PO 03/11/25 09:00 04/10/25 08:59 03/15/25 09:49 25 MG DIAGNOSTICS / RADIOLOGY: [ ] ASSESSMENT: Chest pain, POA, rule out unstable angina/ACS History of multivessel coronary artery disease with prior history of PCI to Proximal LAD, proximal RCA, mid to distal RCA in 03/2024, POA History of ischemic cardiomyopathy, POA History of atrial fibrillation, POA History of chronic anticoagulation with Xarelto, POA Chronic anemia, baseline hemoglobin of 8-9 this year in 2024, POA History of ICD placement, POA PLAN: Chest pain, POA, rule out unstable angina/ACS Troponin was trended 4 times and was negative (7,8,7.3,8) Patient's BNP is 522 at the time of admission, Echo showed LVEF 50-55% Celecoxib was stopped on admission due to the antiplatelet and anticoagulation therapy. Cardiology stopped the patient's clopidogrel and Xarelto until gastroenterology make recommendations. No cardiac workup is required at this time Maintain potassium > 4 and magnesium > 2, Patient of protocol to replenish the electrolytes. Unspecified Anemia Hemoglobin is stable (9.7) Iron panel shows iron deficiency anemia with transferrin saturation of 4.9% on 03.11.2025 iron sucrose transfusion given - 3 Venofer 300 mg given Monitor H & H. Cardiology recommended to focus on patient's underlying progressive anemia which has been ongoing and worsening over the last year. According to Cardiology, the patient has required Xarelto therapy for many years but did not have any anemia while on this therapy and once clopidogrel was initiated in March 2024, the hemoglobin started showing a downward trend. Patient is pending EGD and colonoscopy as ordered by the GI. Chest x-ray negative. Patient will also receive 40 mEq of potassium for potassium of 3.6. ATTESTATION BY PHYSICIAN I have seen and examined the patient. I reviewed the documentation, medical decision making, and treatment plan as noted by the mid-level provider above. I agree with the findings and plan of care. Rosalinda Gutierrez MD, KATARZYNA B APRN Mar 16, 2025 13:10
[2025-03-16] MEDS: PoTASSium chloRIDE 20MEQ ER 20 MEQ ERTAB PO ONE (13:39)
--- NOTE | 2025-03-16 16:27 | NUR ---
NURSING NOTE PER DR. MERCER, PATIENT OK TO BE DISCHARGED. FOLLOW UP IN 1-2 WEEKS AFTER DISCHARGE. PATIENT TO CONTINUE WITH XARELTO AND PANTOPRAZOLE QD., STOP PLAVIX DUE TO PATIENT HAVING STENTS PLACED 1 YEAR AGO. RECOMMENDATIONS NOTIFIED TO PRIMARY CARE. ORDERS TO BE PLACED FOR DISCHARGE. PATIENT NOTIFIED, AWAITING ORDERS FROM PRIMARY.
[2025-03-16] MEDS ORDERED: Isosorbide Mono 30MG Sr Tab PO (16:32)
--- NOTE | 2025-03-16 16:39 | DS ---
Discharge Summary Hospital Course Summary: DATE OF ADMISSION:[] 03/10/2025 DATE OF DISCHARGE:[03/16/2025] DISPOSITION:[Home] CONDITION:[Medically stable] CONSULTANTS:[GI, social services designee] FOLLOW UP APPOINTMENTS:[PCP 2 to 3 days. GI within one week. Control Valve Mechanic within one week.] PROCEDURES:[03/16/2025 EGD and colonoscopy] IMAGING: report attached to summary MICROBIOLOGY: report attached to summary ACTIVITY:[Independent] HOME MEDICATIONS: [facility] NEW MEDICATIONS:[Isosorbide sent to the pharmacy. Plavix stopped as per social services designee] EMERGENCY INSTRUCTIONS: The patient was instructed to present to the nearest Emergency departmentr or call 911 once their symptoms will return or worsen Head Bander And Liner Operator(s): Patient is 55 years old male who came to emergency department for evaluation of substernal chest pain. Patient was complaining of non resolving chest pain but was compliant as outpatient went antiplatelet therapy with Plavix 75 mg daily as well as Xarelto 20 mg daily. Patient stated that recently he ran out of the isosorbide and he was not able to take his medication the day in a.m. of admission. Troponins were negative x4. BNP on admission was 552. 2D echo was ordered and showed EF of 55 to 50% unable to assist dysfunction. Patient's iron panel so showed iron-deficiency anemia patient was also transfused with 1 unit of iron sucrose on 03/11/2025. Cardiology evaluated the patient and recommended to focus on patient underlying progressive anemia which has been ongoing for the past year. As per Cardiology patient has a requires Xarelto therapy for many years but did not have any anemia while on that therapy and once the Plavix was initiated in March of 2024 hemoglobin started to downgrade. Control Valve Mechanic recommended GI workout and meanwhile social services designee stopped Plavix. EGD and colonoscopy was performed on 03/16/2025 which showed gastritis and internal hemorrhoids. Patient was cleared by the GI to be discharged home and follow-up outpatient in one week. As per social services designee nurse practitioner was able to talk today to Dr. Mendoza and he recommended to stop Plavix on discharge and continue all other medications. Follow-up outpatient with the social services designee in one week as well. Patient was also advised to follow up with PCP in 2 to 3 days. Procedure(s): REVIEW OF SYSTEMS CONSTITUTIONAL: Denies fevers, chills, or night sweats. No unintentional weight loss reported. NEUROLOGICAL: Denies headache, amaurosis fugax, motor weakness, sensory deficit, vertigo/spinning sensation, gait abnormalities, or tremors. ENT: No hearing loss, otalgia, otorrhea, rhinitis, rhinorrhea, hoarseness, or sore throat. CARDIOVASCULAR: Substernal chest pain PULMONARY: Denies any shortness of breath, cough, phlegm/sputum, hemoptysis, pleuritic chest pain. SLEEP: Denies morning headaches, daytime somnolence or napping. Denies difficulty falling asleep, staying asleep, waking from sleep. Denies knowledge of snoring. GASTROINTESTINAL: Denies any type of dysphagia to either liquids or solids. Denies nausea, vomiting, pyrosis, early satiety, abdominal pain, diarrhea, constipation, or changes in stool consistency or caliber. Denies coffee-ground emesis, hematemesis, hematochezia, or melanotic stools. GENITOURINARY: Denies frequency, urgency, nocturia, hematuria or incontinence (Storage/Irritative symptoms.) Low urinary stream, straining to void, urinary intermittency or hesitancy, splitting of the voiding stream, terminal dribbling. ENDOCRINOLOGIC: Denies polyuria, polydipsia, polyphagia or heat/cold intolerances. PHYSICAL EXAM GENERAL APPEARANCE: The patient is awake, alert, and oriented, in no acute cardiopulmonary distress. NEUROLOGICAL: No sensory deficits. HEENT: Face is symmetric. NECK: Supple. No thyromegaly. No submental, submandibular, pre-/postauricular, occipital or supraclavicular lymphadenopathy. CHEST: Normal chest expansion. No Telemetry. LUNGS: Absence of any rales, rhonchi or any wheezing. CARDIOVASCULAR: Regular. S1 and S2 normal. No appreciable rubs, murmurs or gallops. ABDOMEN: Soft, nontender, and nondistended. There is no rebound, voluntary guarding, or rigidity. : Deferred. No Mtz. EXTREMITIES: Non-edematous and not cyanotic. No clubbing. Good capillary refill. SKIN: No skin breakdown. Assessment/Plan: ASSESSMENT: Chest pain, POA, rule out unstable angina/ACS History of multivessel coronary artery disease with prior history of PCI to Pro ximal LAD, proximal RCA, mid to distal RCA in 03/2024, POA History of ischemic cardiomyopathy, POA Gastritis as per EGD 03/16/2025 Internal hemorrhoids as per colonoscopy 03/16/2025 History of atrial fibrillation, POA History of chronic anticoagulation with Xarelto, POA Chronic anemia, baseline hemoglobin of 8-9 this year in 2024, POA History of ICD placement, POA Home Medications: Active Scripts Metoprolol Succinate (Toprol Xl) 25 Mg Tab.er.24h, 25 MG PO DAILY, #30 TAB Prov:TIGRE NORWOOD MD 10/01/24 Isosorbide Mononitrate (Isosorbide Mononitrate ER) 30 Mg Tab.er.24h, 1 TAB PO DAILY for 30 Days, #30 TAB 0 Refills Prov:TIGRE NORWOOD MD 10/01/24 Clopidogrel Bisulfate (Plavix) 75 Mg Tablet, 75 MG PO DAILY, #30 TAB 0 Refills Prov:WILL ANDRE AGPCNP 04/13/24 Reported Medications Celecoxib (Celecoxib) 200 Mg Capsule, 1 CAP PO DAILY for pain for 30 Days, #30 CAP 0 Refills 03/10/25 Atorvastatin Calcium (Atorvastatin Calcium) 40 Mg Tablet, 1 TAB PO DAILY for 30 Days, #30 TAB 0 Refills 09/29/24 Pantoprazole Sodium (Pantoprazole Sodium) 40 Mg Tablet.dr, 1 TAB PO DAILY for 30 Days, #30 TAB 0 Refills 09/29/24 Spironolactone (Spironolactone) 25 Mg Tablet, 25 MG PO DAILY, TAB 01/29/24 Losartan Potassium (Losartan Potassium) 25 Mg Tablet, 25 MG PO DAILY, TAB 01/29/24 Furosemide (Furosemide) 20 Mg Tablet, 20 MG PO DAILY, TAB 01/29/24 Rivaroxaban (Xarelto) 20 Mg Tablet, 20 MG PO HS, TAB 01/29/24 Discontinued Reported Medications Dapagliflozin Propanediol (Farxiga) 10 Mg Tablet, 1 TAB PO DAILY for 30 Days, #30 TAB 0 Refills 09/29/24 Hydroxyzine HCl (Hydroxyzine HCl) 25 Mg Tablet, 25 MG PO BID PRN for ANXIETY/AGITATION, TAB 04/09/24 Cetirizine HCl (Cetirizine HCl) 10 Mg Tablet, 10 MG PO DAILY, TAB 04/09/24 Discontinued Scripts Carvedilol (Carvedilol) 12.5 Mg Tablet, 12.5 MG PO BID, #60 TAB 0 Refills Prov:WILL ANDRE AGPCNP 04/13/24 [doCUSate SODIUM 100 MG CAP] 100 MG CAPSULE No Conflict Check, 100 MG PO BID PRN for c, #60 0 Refills Prov:WILL ANDRE AGPCSORAYA 04/13/24 Gabapentin (Gabapentin) 100 Mg Capsule, 100 MG PO DAILY PRN for daily for 5 Days, #5 CAP Prov:HECTOR MELTON MD 02/08/24 Time spent arranging discharge: 31-60 minutes ATTESTATION BY PHYSICIAN I have seen and examined the patient. I reviewed the documentation, medical decision making, and treatment plan as noted by the mid-level provider above. I agree with the findings and plan of care. Rosalinda Gutierrez MD, KATARZYNA B CLINICAL ABSTRACTOR Mar 16, 2025 16:39
--- NOTE | 2025-03-16 16:50 | NUR ---
DISCHARGE DISCHARGE ORDERS OBTAINED FOR PATIENT TO BE DISCHARGED HOME. DISCHARGE INSTRUCTIONS AND DOCUMENTATION GIVEN TO PATIENT AT BEDSIDE. VOICED UNDERSTANDING. IV DISCONTINUED BY SCOTT SMITH. CATHETER INTACT, NO S/S OF INFECTION NOTED TO AREA. PATIENT TOLERATED WELL. BANDS REMOVED. PENDING TRANSPORTATION FROM .
--- NOTE | 2025-03-16 17:15 | NUR ---
DISCHARGE PATIENT LEFT VIA WHEELCHAIR, ACCOMPANIED BY . NO S/S OF DISTRESS NOTED.
== END 2025-03-16 17:10 | disposition home or self-care (01) | DRG 303 ==
LOC: EDH 12:10 → EDHIP 12:11 → 2DH 16:30 → 4DH 03-12 14:21
PROVIDERS: ADMIT Internal Medicine; ATTEND Internal Medicine
PROC: 0DB68ZX Excision of Stomach, Via Natural or Artificial Opening Endoscopic, Diagnostic (ICD-10-PCS; principal; 2025-03-16)
PROC: 0DJD8ZZ Inspection of Lower Intestinal Tract, Via Natural or Artificial Opening Endoscopic (ICD-10-PCS; 2025-03-16)
DX: I25.110 Atherosclerotic heart disease of native coronary artery with unstable angina pectoris (principal); I48.19 Other persistent atrial fibrillation; I50.22 Chronic systolic (congestive) heart failure; I48.92 Unspecified atrial flutter; I24.9 Acute ischemic heart disease, unspecified; I11.0 Hypertensive heart disease with heart failure; D64.9 Anemia, unspecified; I42.8 Other cardiomyopathies; K29.50 Unspecified chronic gastritis without bleeding; D50.9 Iron deficiency anemia, unspecified; E78.00 Pure hypercholesterolemia, unspecified; K29.70 Gastritis, unspecified, without bleeding; I25.5 Ischemic cardiomyopathy; K64.8 Other hemorrhoids; Z56.0 Unemployment, unspecified; Z59.71 Insufficient health insurance coverage; Z79.02 Long term (current) use of antithrombotics/antiplatelets; Z79.899 Other long term (current) drug therapy; Z82.49 Family history of ischemic heart disease and other diseases of the circulatory system; Z90.49 Acquired absence of other specified parts of digestive tract; Z95.5 Presence of coronary angioplasty implant and graft; Z95.810 Presence of automatic (implantable) cardiac defibrillator; Z79.01 Long term (current) use of anticoagulants; Z75.3 Unavailability and inaccessibility of health-care facilities
CPT/HCPCS: 36415; 43239; 45378; 71045; 80048; 80053; 80305; 81003; 82550; 82728; 83540; 83550; 83735; 83880; 84484; 85025; 85027; 93005; 93306; 93356; 99285; G0378; J1756; J2704; J7030; J7050; A4215; A4221; A4222; A4620; J3490